=== PATIENT | female | born 1990 | race Caucasian/White ===

== ENCOUNTER 2018-03-20 21:13 | Emergency (ER) | payer SELFPAY ==
[~2018-03-20] VITALS: Ht 162.6 cm; Wt 68.5 kg
[~2018-03-20 21:13] MED LIST: ACET-1311 PO; IBUP-103 PO; PHEN95TA14 PO
[2018-03-20 21:15] VITALS: TEMP 36.8; Ht 162.6 cm; Wt 68.5 kg
[2018-03-20] MEDS ORDERED: CEFTRIAXONE SOD INJ 1 GM ADDVIAL IV STA (21:41)
[2018-03-20] MEDS ORDERED: KETOROLAC TROMETHAMINE 30 MG/ML VIAL IV STA (21:41)
[2018-03-20] MEDS ORDERED: NAPR1TAB9 PO (21:43)
[2018-03-20 22:08] LABS: BASO % 0.1 %; BASO ABS # 0.01 K/uL (0-0.2); EOS ABS # 0.13 K/uL (0-0.5); HEMATOCRIT 39.6 % (37-47); HEMOGLOBIN 13.7 g/dL (12.0-16.0); IG# 0.03 K/uL (0.00-0.02); LYMPH % 23.1 %; LYMPH ABS # 2.87 K/uL (1.2-3.4); MEAN CORPUSCULAR HEMOGLOBIN 30.1 pg (25-34); MEAN CORPUSCULAR HGB CONC 34.6 g/dl (32-36); MEAN PLATELET VOLUME 10.7 fL (7.4-10.4); MONO % 6.4 %; NEUT % 69.2 %; NEUT ABS # 8.59 K/uL (1.4-6.5); PLATELET COUNT 245 K/uL (130-400); RED CELL DISTRIBUTION WIDTH CV 13.2 % (11.5-14.5); RED CELL DISTRIBUTION WIDTH SD 42.1 fL (36.4-46.3); WHITE BLOOD COUNT 12.43 K/uL (4.8-10.8)
[2018-03-20 22:17] LABS: CALCIUM 8.5 mg/dl (8.5-10.1); CREATININE 0.65 mg/dl (0.60-1.20); POTASSIUM 3.5 mmol/L (3.5-5.1)
--- NOTE | 2018-03-20 22:58 | DIAGNOSTIC IMAGING REPORT ---
SOFT TISS HEAD/NECK-THYROID CLINICAL HISTORY: 27 years-old Female presenting with anterior neck infx, ? abscess. TECHNIQUE: Real-time grayscale Doppler ultrasound imaging of the neck was performed for a focused evaluation at the site of clinical concern. Color Doppler ultrasound imaging was also performed. COMPARISON: None. FINDINGS: At the site of clinical interest, a complex collection is noted within the midline neck. This measures 2.3 x 2.3 x 0.9 cm. Hyperemia noted regionally, including within the collection. Skin thickening and surrounding edema evident. IMPRESSION: 1. Phlegmonous changes in the midline. No discrete abscess. Electronically signed by: Fred Velazquez M.D. 03/20/2018 10:57 PM Dictated Date/Time: 03/20/2018 10:54 PM
[2018-03-20] MEDS ORDERED: CEPH500C2 PO (23:13)
[2018-03-20] MEDS ORDERED: CEPHALEXIN 500MG HOME PACK 1 EA BTL PO ONE (23:15)
[2018-03-20 23:37] VITALS: BP 129/89; PULSE 101; O2SAT 99
--- NOTE | 2018-03-21 04:21 | EMERGENCY ROOM VISIT NOTE ---
History First contact with patient: 21:25 Chief Complaint: WOUND INFECTION Stated Complaint: THROAT AREA/JAW INFECTION, POSSIBLE CYST History of Present Illness The patient is a 27 year old female who presents to the Emergency Room with complaints of anterior neck infection with possible abscess. Patient states she was squeezing at a pimple and cannot get any pus out of it. Patient states it got much larger over the past day and is concerned. No history of MRSA. No IV drug abuse. Patient denies chest pain, dyspnea, fever, chills, nausea, vomiting, neck stiffness or any other medical complaints. Tetanus is current. Review of Systems An 10 system review of systems was completed with positives and pertinent negatives listed in the HPI. Past Medical/Surgical History Medical Problems: (1) Abscess of left arm (2) Abscess packing removal (3) Abscess packing removal (4) Aseptic meningitis (5) Bartholin's cyst (6) Bartholin's cyst (7) Bartholin's gland abscess (8) Bartholin's gland abscess (9) Bartholin's gland abscess (10) Cellulitis of arm, left (11) Dental caries (12) Headache (13) Herpes simiae infection (14) Herpes simplex labialis (15) Herpetic lesions (16) Laceration (17) Leg hematoma (18) Leg hematoma (19) Meningitis (20) Odontalgia (21) Odontalgia (22) Sore throat (23) Tooth pain with chewing (24) Viral illness Social History Smoking Status: Current Every Day Smoker Alcohol Use: occasionally Drug Use: none Marital Status: in relationship Housing Status: lives with family Occupation Status: employed Current/Historical Medications Scheduled Cephalexin Monohydrate (Keflex), 500 MG PO QID Scheduled PRN Acetaminophen (Tylenol), 650 MG PO Q4H PRN for Pain Naproxen (Aleve), 220 MG PO UD PRN for Pain Physical Exam Vital Signs Date Time Temp Pulse Resp B/P (MAP) Pulse Ox O2 Delivery O2 Flow Rate FiO2 03/20/18 23:37 101 18 129/89 99 03/20/18 21:53 112 18 138/84 99 Room Air 03/20/18 21:15 36.8 122 18 149/96 99 Room Air Physical Exam VITALS: Vitals are noted on the nurse's note and reviewed by myself. Vital signs stable. GENERAL: Pleasant female anxious appearing, in no acute distress, nondiaphoretic , well-developed well-nourished. SKIN: Anterior neck just above the thyroid that is erythematous and raised 2 cm x 2 cm that is been picked at most likely from ingrown hair follicle without fluctuance or palpable abscess. No lymphangitis. The rest of the skin was without rashes, erythema, edema, or bruising. There is no tenting of the skin. Capillary reflex less than 2 seconds. HEAD: Normocephalic atraumatic. EARS: External auditory canals clear, tympanic membranes pearly keith without erythema or effusion bilaterally. EYES: Pupils equal round and reactive to light and accommodation. Conjunctivae without injection, sclerae without icterus. Extraocular movements intact. NOSE: Patent, turbinates without inflammation or discharge. MOUTH: Mucous membranes moist. Pharynx without erythema or exudate. Uvula midline. Airway patent. Tongue does not deviate. NECK: Supple without nuchal rigidity. No lymphadenopathy. No thyromegaly. Cervical spine is nontender. No JVD. HEART: Regular rate and rhythm without murmurs gallops or rubs. LUNGS: Clear to auscultation bilaterally without wheezes, rales or rhonchi. No retractions or accessory muscle use. ABDOMEN: Positive bowel sounds x 4. Normal tympanic percussion. Soft, nontender, without masses or organomegaly. Lane sign negative. No guarding or rebound tenderness. No CVA tenderness MUSCULOSKELETAL: No muscle atrophy, erythema, or edema noted. NEURO: Patient was alert and oriented to person place and time. Normal sensation to light and sharp touch. No focal neurological deficits. Medical Decision & Procedures Laboratory Results 03/20/18 21:50 Red Blood Count 4.55, Mean Corpuscular Volume 87.0, Mean Corpuscular Hemoglobin 30.1, Mean Corpuscular Hemoglobin Concent 34.6, Mean Platelet Volume 10.7, Neutrophils (%) (Auto) 69.2, Lymphocytes (%) (Auto) 23.1, Monocytes (%) (Auto) 6.4, Eosinophils (%) (Auto) 1.0, Basophils (%) (Auto) 0.1, Neutrophils # (Auto) 8.59, Lymphocytes # (Auto) 2.87, Monocytes # (Auto) 0.80, Eosinophils # (Auto) 0.13, Basophils # (Auto) 0.01 03/20/18 21:50 Test 03/20/18 21:50 White Blood Count 12.43 K/uL (4.8-10.8) Red Blood Count 4.55 M/uL (4.2-5.4) Hemoglobin 13.7 g/dL (12.0-16.0) Hematocrit 39.6 % (37-47) Mean Corpuscular Volume 87.0 fL (80-100) Mean Corpuscular Hemoglobin 30.1 pg (25-34) Mean Corpuscular Hemoglobin Concent 34.6 g/dl (32-36) Platelet Count 245 K/uL (130-400) Mean Platelet Volume 10.7 fL (7.4-10.4) Neutrophils (%) (Auto) 69.2 % Lymphocytes (%) (Auto) 23.1 % Monocytes (%) (Auto) 6.4 % Eosinophils (%) (Auto) 1.0 % Basophils (%) (Auto) 0.1 % Neutrophils # (Auto) 8.59 K/uL (1.4-6.5) Lymphocytes # (Auto) 2.87 K/uL (1.2-3.4) Monocytes # (Auto) 0.80 K/uL (0.11-0.59) Eosinophils # (Auto) 0.13 K/uL (0-0.5) Basophils # (Auto) 0.01 K/uL (0-0.2) RDW Standard Deviation 42.1 fL (36.4-46.3) RDW Coefficient of Variation 13.2 % (11.5-14.5) Immature Granulocyte % (Auto) 0.2 % Immature Granulocyte # (Auto) 0.03 K/uL (0.00-0.02) Anion Gap 5.0 mmol/L (3-11) Est Creatinine Clear Calc Drug Dose 123.6 ml/min Estimated GFR () 141.0 Estimated GFR (Non- 121.7 BUN/Creatinine Ratio 4.9 (10-20) Calcium Level 8.5 mg/dl (8.5-10.1) Thyroid Stimulating Hormone (TSH) 0.995 uIu/ml (0.300-4.500) Human Chorionic Gonadotropin, Qual NEG (NEG) Medications Administered Medications (Trade) Dose Ordered Sig/Luis Alberto Route Start Time Stop Time Status Last Admin Dose Admin Ceftriaxone Sodium (Rocephin Inj) 1 gm NOW STAT IV 03/20/18 21:41 03/20/18 21:44 DC 03/20/18 21:48 1 GM Ketorolac Tromethamine (Toradol Inj) 10 mg NOW STAT IV 03/20/18 21:41 03/20/18 21:44 DC 03/20/18 21:48 10 MG Cephalexin Monohydrate (Keflex 500MG Home Pack) 1 homepack NOW ONCE PO 03/20/18 23:15 03/20/18 23:16 DC 03/20/18 23:36 1 HOMEPACK ED Course Prior records reviewed and summarized as above. Triage Nursing notes reviewed. Additional history obtained from friend. The patient's history was concerning for swelling and redness of the skin. Differential diagnosis: Etiologies such as cellulitis, abscess, MRSA infection, necrotizing fasciitis , dermatitis, drug eruption, as well as others were entertained.. Physical examination: The physical examination was consistent with cellulitis ER treatment provided: Rocephin On reassessment the patient felt better. Diagnostics interpreted by me: The labs revealed mild leukocytosis Imaging studies: SOFT TISS HEAD/NECK-THYROID CLINICAL HISTORY: 27 years-old Female presenting with anterior neck infx, ? abscess. TECHNIQUE: Real-time grayscale Doppler ultrasound imaging of the neck was performed for a focused evaluation at the site of clinical concern. Color Doppler ultrasound imaging was also performed. COMPARISON: None. FINDINGS: At the site of clinical interest, a complex collection is noted within the midline neck. This measures 2.3 x 2.3 x 0.9 cm. Hyperemia noted regionally, including within the collection. Skin thickening and surrounding edema evident. IMPRESSION: 1. Phlegmonous changes in the midline. No discrete abscess. Electronically signed by: Fred Velazquez M.D. 03/20/2018 10:57 PM Dictated Date/Time: 03/20/2018 10:54 PM This appears to be isolated cellulitis. Patient had no palpable abscess. She is informed not to pick scratch or squeeze at the area. She is advised to take medications as directed and follow-up family care in a few days here in the ER sooner for fevers, spreading infection, neck stiffness, worsening signs or symptoms or as needed. Patient was neurovascularly and neurologically intact. She is well-appearing. She is tolerating fluids.By the evaluation outlined above emergent etiologies such as abscess, necrotizing fasciitis as well as others were deemed relatively unlikely. The pt informed about the findings as listed above. All questions were answered and pleased with the treatment. Return instructions were outlined and the patient was discharged in stable condition. Outpatient prescription management: Keflex Referral: The patient was referred back to primary care physician for follow-up in 2 to 3 days for a recheck of the current condition. Case reviewed with my attending The chart was completed utilizing [employer] Speech voice recognition software. Grammatical errors, random word insertions, pronoun errors, and incomplete sentences are an occassional consequence of this system due to software limitations, ambient noise, and hardware issues. Any formal questions or concerns about the content, text, or information contained within the body of this dictation should be directly addressed to the physician buyer assistant for clarification. Medical Decision As above Medication Reconcilliation Current Medication List: was personally reviewed by me Blood Pressure Screening Patient's blood pressure: Normal blood pressure Impression Primary Impression: Cellulitis, neck Departure Information Dispostion Home / Self-Care Condition GOOD Prescriptions Cephalexin Monohydrate (KEFLEX) 500 Mg Cap 500 MG PO QID for 9 Days, #36 CAP Prov: Hue Villareal ., DEBBIE 03/20/18 Forms WORK / SCHOOL INSTRUCTIONS, HOME CARE DOCUMENTATION FORM, IMPORTANT VISIT INFORMATION Patient Instructions Cellulitis - [facility], [facility] Additional Instructions Do not pick,scratch, or squeeze at the area of infection. Cephalexin(Keflex) 500mg: Take one pill four times daily for 10 days for your skin infection. All antibiotics can cause diarrhea. If this occurs and you feel worse or it does not resolve in 1-2 days follow up with your doctor or return to the Emergency Department as this could be signs of serious underlying problems. Any medication can cause an allergic reaction, stop the pills immediately and return to the ER for rash, hives, breathing difficulties, or swelling. Ibuprofen(Motrin, Advil) may be used for fever or pain. Use 600mg every six hours as needed. Take with food. Avoid using more than 2400mg in a 24 hour period. Do not use 2400mg per day for more than three consecutive days without physician direction. Prolonged inappropriate use can lead to stomach upset or ulcers. (AND/OR) Acetaminophen(Tylenol) may be used for fever or pain. Use 1000mg every six hours as needed. Avoid using more than 4000mg in a 24 hour period. Rest and drink plenty of fluids. Continue current medications. Return to the ER for severe pain, persistent fevers, spreading redness, or any worsening of your condition. Follow up with your primary physician within 2-3 days for a recheck of the current condition.
== END 2018-03-20 23:39 | disposition home or self-care (01) ==
LOC: C.EDB 21:14
DX: L03.221 Cellulitis of neck (principal); F17.200 Nicotine dependence, unspecified, uncomplicated

== ENCOUNTER 2019-11-29 08:33 | Inpatient (IN) ==
[2019-11-29] MEDS ORDERED: OXYTOCIN 30 UNITS/500 ML BAG IV PRN ×3 (11:13→12:00)
[2019-11-29] MEDS ORDERED: OXYTOCIN 30 UNITS/500 ML BAG IV SCH (11:15)
--- NOTE | 2019-11-29 11:18 | Obstetrical Progress Note ---
Date of Service November 29, 2019 Subjective Met pt and partner discussed plan induction fro IUGR and drug abuse\ Bernardo bulb placed with 30 cc saline FHR; CAT1 ctx minimal VE 1-2/50/-3 Results & Data Vital Signs (Past 12 Hours) Vital Signs Temp Pulse Resp BP 11/29/19 09:21 36.7 C 20 11/29/19 09:20 76 123/74 11/29/19 09:05 36.7 C 20
[2019-11-29 11:31] LABS: Hematocrit (blood only) 39.6 % (37-47); Hemoglobin 13.4 g/dL (12.0-16.0); Mean Corpuscular Hemoglobin 30.4 pg (25-34); Mean Corpuscular Volume 89.8 fL (80-100); Mean Platelet Volume 11.6 fL (7.4-10.4); Platelet Count 220 K/uL (130-400); RDW Coefficient of Variation 13.9 % (11.5-14.5); RDW Standard Deviation 45.5 fL (36.4-46.3); Red Blood Count 4.41 M/uL (4.2-5.4); White Blood Count 14.56 K/uL (4.8-10.8)
[2019-11-29 11:39] LABS: Mean Corpuscular Hgb Conc 33.8 g/dL (32-36)
[2019-11-29] MEDS: LACTATED RINGER'S 1,000 ML IV PRN ×3 (11:50→23:26)
--- NOTE | 2019-11-29 11:56 | Obstetrical Progress Note ---
Date of Service November 29, 2019 Subjective Pt doing well mcdonald bulb inserted cervix , fell out FHR; Cat1 Ctx. minimal VE/thick/post will start Pitocin augmentation Results & Data Vital Signs (Past 12 Hours) Vital Signs Temp Pulse Resp BP 11/29/19 09:21 36.7 C 20 11/29/19 09:20 76 123/74 11/29/19 09:05 36.7 C 20
[2019-11-29] MEDS: NICOTINE 14 MG/24 HR PATCH TD SCH (16:14)
[2019-11-29] MEDS ORDERED: Nursing to Pharmacy Communication SCH (18:00)
[2019-11-29] MEDS: buprenorphine HCL 8 MG SUBL SL SCH (18:03)
[2019-11-29] MEDS ORDERED: fentaNYL citrate 100 MCG/2 ML VIAL ONE (23:58)
[2019-11-29] MEDS ORDERED: ePHEDrine sulfate 50 MG/ML AMP ONE (23:58)
[2019-11-29] MEDS ORDERED: BUPIVACAINE 0.25% 30 ML VIAL ONE (23:59)
[2019-11-29] MEDS ORDERED: fentaNYL 2MCG/ML ROPIV 1.25MG/ML 100 ML BAG EPI ONE (23:59)
[2019-11-30] MEDS ORDERED: NALOXONE HCL 0.4 MG/1 ML VIAL/CARP IV PRN (00:58)
[2019-11-30] MEDS ORDERED: NALBUPHINE HCL INJ 10 MG/ML AMP IV PRN (00:58)
[2019-11-30] MEDS ORDERED: ePHEDrine sulfate 50 MG/ML AMP IV PRN (00:58)
[2019-11-30] MEDS ORDERED: DiphenhydrAMINE HCL 50 MG/ML VIAL IV PRN (00:58)
[2019-11-30] MEDS ORDERED: NALOXONE HCL 1 MG in SODIUM CHLORIDE 0.9% 1000ML 1,000 ML IV PRN (00:58)
[2019-11-30] MEDS ORDERED: fentaNYL 2MCG/ML ROPIV 1.25MG/ML 100 ML BAG EPI PRN (00:58)
[2019-11-30] MEDS ORDERED: ONDANSETRON INJ 2 MG/ML 2 ML VIAL IV PRN (00:58)
--- NOTE | 2019-11-30 01:00 | Anesthesiology Consultation ---
Date of Service November 30, 2019 Assessment & Plan Chart Review Chart Review: Patient NOT seen in Pre Admission Testing and Acceptable Risk for Labor Epidural Consults Requested none ASA ASA2 Proposed Anesthesia Anesthesia Type: Labor Epidural and CSE Risk / Benefits Reviewed With: PT / POA / Parent / Guardian, Accepts Plan and Informed Consent Obtained History Height/Weight Height: 5 ft 4 in Weight: 81.193 kg Allergies Allergy/AdvReac Type Severity Reaction Status Date / Time coconut Allergy Hives Verified 11/29/19 09:03 iodine in fish Allergy Hives Uncoded 11/29/19 09:56 Medications Home Medications Medication Instructions Recorded Confirmed Last Taken buprenorphine HCl 20 mg SUBLINGUAL DAILY 11/29/19 11/29/19 11/29/19 07:30 8 mg vit-iron fum-folic ac 1 tab PO DAILY 11/29/19 11/29/19 11/28/19 14:00 [ Vitamin] Active Medications Generic Name Dose Route Start Last Admin Trade Name Freq PRN Reason Stop Dose Admin Buprenorphine HCl 8 mg 11/29/19 18:00 11/29/19 18:03 Subutex SL 12/29/19 17:59 8 mg DAILY@1800 ALVAREZ Administration Lactated Ringer's 1,000 mls @ 125 mls/hr 11/29/19 11:13 11/29/19 23:26 Lr IV 12/01/19 11:12 125 mls/hr .Q8H PRN Administration L&D Protocol Protocol Oxytocin 30 units in 500 mls @ 10 mls/hr 11/29/19 11:15 11/29/19 22:30 Pitocin IV 12/29/19 11:14 0.6 units/hr .Q24H ALVAREZ 10 mls/hr Titration Protocol 0.6 UNITS/HR Nicotine 14 mg 11/29/19 15:20 11/29/19 16:14 Nicoderm Cq TD 12/29/19 15:19 14 mg QAM ALVAREZ Administration NPO Date Last Intake of Fluids: 11/30/19 Time Last Intake of Fluids: 00:20 Date Last Intake of Solids: 11/29/19 Time Last Intake of Solids: 09:00 Past Medical History Medical History Cellulitis of labia (Acute) Cellulitis, neck (Acute) Smoker Spontaneous 2008 and 2009 Exercise / Class Metabolic Activity II 4-5 Yardwork/Stairs/Walk up hill Past Anesthesia History No Hx of Anesthesia Complications and No Family Hx of Anesthesia Complications History of PONV No Hx of PONV and No Hx of Motion Sickness Social History Smoking Status: Current every day smoker Smoking cigarettes per day: 10 Do You Dip or Chew Tobacco: No Hx Alcohol Use: No substance use type: painkillers Last Used Substance Other:: 01/04 Review of Systems no chest pain or sob Physical Exam Vital Signs Last Vital Signs Temp 36.8 C 11/29/19 23:00 Pulse 89 11/30/19 00:57 Resp 18 11/30/19 00:02 BP 126/78 11/30/19 00:02 Pulse Ox 100 11/30/19 00:57 ENMT Mouth: no TMJ abnormality Thyromental Distance: > or= 3.5 Finger Breadths Mallampati Class: II Neck normal visual inspection Respiratory normal respiratory effort Auscultation: lungs clear to auscultation bilaterally Cardiovascular Rate/Rhythm: regular rate and regular rhythm Musculoskeletal Spine: normal cervical ROM Neurologic moves all extremities Psychiatric Orientation: alert and oriented x 3 Testing Laboratory Results 11/29/19 11:19
--- NOTE | 2019-11-30 01:45 | Obstetrical Progress Note ---
Date of Service November 30, 2019 Subjective pt doing well epidural analgesia on board FHR ; CAT1 Ctx 2-4mns Pitocin VE; 4/80/-2 AROM- clear Results & Data Vital Signs (Past 12 Hours) Vital Signs Temp Pulse Resp BP Pulse Ox 11/30/19 01:37 70 98 11/30/19 01:35 67 123/66 11/30/19 01:32 69 98 11/30/19 01:27 76 100 11/30/19 01:25 70 120/60 11/30/19 01:22 80 126/75 100 11/30/19 01:21 78 123/66 11/30/19 01:18 71 137/71 11/30/19 01:17 74 134/58 L 99 11/30/19 01:12 80 164/88 H 100 11/30/19 01:09 81 88 L 11/30/19 01:07 79 100 11/30/19 01:02 36.6 C 72 130/89 100 11/30/19 00:57 89 100 11/30/19 00:50 85 100 11/30/19 00:45 75 97 11/30/19 00:40 76 100 11/30/19 00:35 75 98 11/30/19 00:30 66 99 11/30/19 00:25 72 100 11/30/19 00:20 67 98 11/30/19 00:15 64 100 11/30/19 00:10 69 98 11/30/19 00:05 65 97 11/30/19 00:02 65 18 126/78 11/30/19 00:00 64 98 11/29/19 23:57 63 134/74 11/29/19 23:55 66 99 11/29/19 23:03 76 115/72 11/29/19 23:00 36.8 C 18 11/29/19 22:02 76 18 130/76 11/29/19 21:00 36.8 C 71 18 137/73 11/29/19 20:14 71 18 120/77 11/29/19 19:23 36.7 C 18 11/29/19 19:16 36.7 C 64 18 126/71 11/29/19 17:09 68 130/57 L 11/29/19 15:55 36.8 C 20 11/29/19 15:54 64 109/56 L 11/29/19 14:43 64 116/67
[2019-11-30] MEDS: LACTATED RINGER'S 1,000 ML IV PRN (04:37)
[2019-11-30] MEDS: buprenorphine HCL 8 MG SUBL SL SCH ×2 (07:26→17:50)
[2019-11-30] MEDS ORDERED: buprenorphine HCL 2 MG SUBL SL SCH ×2 (07:30→09:00)
[2019-11-30] MEDS ORDERED: OXYTOCIN 30 UNITS/500 ML BAG IV PRN (08:13)
[2019-11-30] MEDS ORDERED: BENZOCAINE 20% AER SPR 82.5 GM CAN EXT PRN (08:13)
[2019-11-30] MEDS ORDERED: SUPERCREAM 0.870% 15 GM JAR EXT PRN (08:13)
[2019-11-30] MEDS ORDERED: bisacodyL 10 MG SUPP PR PRN (08:13)
[2019-11-30] MEDS ORDERED: DIPHTHERIA/TETANUS/PERTUSSIS 0.5 ML SYR/VIAL IM ONE (08:13)
[2019-11-30] MEDS ORDERED: HYDROCORTISONE ACETATE 25 MG SUPP PR PRN (08:13)
[2019-11-30] MEDS ORDERED: ACETAMINOPHEN 325 MG TAB PO PRN (08:13)
[2019-11-30] MEDS ORDERED: NON-FORMULARY MEDICATION (Prenatal Vit-Iron Fum-Folic Ac [Prenatal Vitamin] 1 TAB) PO SCH (09:00)
[2019-11-30] MEDS ORDERED: NICOTINE 14 MG/24 HR PATCH TD SCH (09:00)
--- NOTE | 2019-11-30 09:04 | Delivery Summary ---
DATE OF OPERATION: 11/30/2019 She was diagnosed with intrauterine growth retardation, brought in for induction, given a Bernardo bulb and then went to Pitocin. She became fully dilated with 3 pushes, pushed out a live via direct occiput anterior position over an intact perineum. was suctioned through the mouth and the nose. Shoulders delivered without difficulty. Cord was clamped, cut by the patient's mother. Cord blood was taken. With IV Pitocin running, the placenta was removed intact. Inspection revealed a left-sided sulcus tear and a first-degree laceration. The apex of the sulcus tear was identified and then a suture of Vicryl placed above the apex and then the sulcus was approximated with a running Vicryl. Then, I repaired the perineal tear by approximating the bulbocavernosus muscles with a deep suture approximating the perineal body with a deep suture and then approximating the skin edges with a running subcuticular suture. Following this, vag exam revealed no sponges in the vagina. There were no hematoma formation. Rectal examination revealed no stitches to the rectal mucosa. Estimated blood loss was 100 mL. My own estimation of the Apgars were 9 and 10 respectively. The patient tolerated the procedure well. Pain under epidural anesthesia. I attest to the content of the Intraoperative Record and any orders documented therein. Any exception s are noted below.
[2019-11-30] MEDS: IBUPROFEN 600 MG TAB PO PRN ×2 (10:39→16:43)
--- NOTE | 2019-11-30 10:39 | Anesthesia Procedure Note ---
Date of Service November 30, 2019 Anesthesia Post Epidural Note Vital Signs Vital Signs: Temp Pulse Resp BP Pulse Ox 37.2 C 82 16 135/75 100 11/30/19 07:01 11/30/19 10:16 11/30/19 07:01 11/30/19 10:16 11/30/19 08:18 Notes Mental Status: alert / awake / arousable and participated in evaluation Nausea / Vomiting: adequately controlled Pain: adequately controlled Airway Patency, RR, SpO2: stable & adequate BP & HR: stable & adequate Hydration State: stable & adequate Neuraxial Anesthesia: was administered and sensory block is resolving Anesthetic Complications: no major complications apparent and Pt Satisfied with anesthetic care Epidural: Removed without complications and With tip intact Notes: Epidural site clean, dry and intact. No signs of edema, erythema or bruising at insertion site. Pt instructed to request anesthesia if she has residual lower extremity numbness or if she develops lower extremity pain or weakness, back pain or headache.
[2019-11-30] MEDS: NICOTINE 14 MG/24 HR PATCH TD SCH (12:06)
[2019-11-30] MEDS: DOCUSATE SODIUM 100 MG CAP PO SCH (20:20)
[2019-12-01] MEDS: IBUPROFEN 600 MG TAB PO PRN ×4 (00:23→23:38)
[2019-12-01 06:34] LABS: Hematocrit (blood only) 33.4 % (37-47); Mean Corpuscular Hemoglobin 30.1 pg (25-34); Mean Corpuscular Hgb Conc 32.9 g/dL (32-36); Mean Corpuscular Volume 91.5 fL (80-100); Mean Platelet Volume 11.6 fL (7.4-10.4); Platelet Count 189 K/uL (130-400); RDW Standard Deviation 46.8 fL (36.4-46.3); Red Blood Count 3.65 M/uL (4.2-5.4); White Blood Count 14.78 K/uL (4.8-10.8)
[2019-12-01] MEDS ORDERED: FERROUS SULFATE 325 MG TAB PO SCH (08:00)
[2019-12-01] MEDS: PRENATAL VITAMIN 1 TAB PO SCH (08:02)
[2019-12-01] MEDS: NICOTINE 14 MG/24 HR PATCH TD SCH (08:02)
[2019-12-01] MEDS: DOCUSATE SODIUM 100 MG CAP PO SCH ×2 (08:02→20:56)
[2019-12-01] MEDS: buprenorphine HCL 8 MG SUBL SL SCH ×2 (08:03→17:59)
--- NOTE | 2019-12-01 08:11 | Obstetrical Progress Note ---
Date of Service December 01, 2019 Subjective Patient is seen and examined. She feels well, no complaints. Ambulating without dizziness Voiding without difficulty Tolerating regular diet with out N&V Bleeding is minimal No fever/ chills/ CP/ SOB/ N&V/ Leg pain Breast feeding without problems Vital Signs Temp Pulse Pulse Pulse Resp BP BP 12/01/19 04:15 36.8 C 68 14 119/75 12/01/19 00:00 36.6 C 71 16 122/65 11/30/19 19:30 36.7 C 81 18 129/70 11/30/19 14:05 36.9 C 73 18 142/87 H 11/30/19 11:05 36.7 C 79 16 128/75 11/30/19 10:16 82 135/75 11/30/19 10:01 84 129/71 11/30/19 09:46 94 H 127/80 11/30/19 09:31 95 H 140/83 11/30/19 09:16 81 136/71 11/30/19 09:01 73 122/73 11/30/19 08:46 73 131/78 11/30/19 08:31 75 126/76 11/30/19 08:18 101 H 11/30/19 08:16 94 H 128/80 11/30/19 08:13 88 Pulse Ox 12/01/19 04:15 98 12/01/19 00:00 100 11/30/19 19:30 100 11/30/19 14:05 98 11/30/19 11:05 98 11/30/19 10:16 11/30/19 10:01 11/30/19 09:46 11/30/19 09:31 11/30/19 09:16 11/30/19 09:01 11/30/19 08:46 11/30/19 08:31 11/30/19 08:18 100 11/30/19 08:16 11/30/19 08:13 100 Lab Results 11/29/19 12/01/19 Range/Units 11:19 06:17 WBC 14.56 H 14.78 H (4.8-10.8) K/uL RBC 4.41 3.65 L (4.2-5.4) M/uL Hgb 13.4 11.0 L (12.0-16.0) g/dL Hct 39.6 33.4 L (37-47) % MCV 89.8 91.5 (80-100) fL MCH 30.4 30.1 (25-34) pg MCHC 33.8 32.9 (32-36) g/dL RDW Std Deviation 45.5 46.8 H (36.4-46.3) fL RDW Coeff of Alex 13.9 14.0 (11.5-14.5) % Plt Count 220 189 (130-400) K/uL MPV 11.6 H 11.6 H (7.4-10.4) fL PE: General: Alert, orientedx3, NAD Abd: soft, NT, fundus firm, below Umbilicus Perineum intact, Lochia rubra minimal Ext; NT, no edema AP: 29 yo s/p , ppd# 1 VSS Afebrile doing well Continue routine care All questions were answered D/C home tomorrow Results & Data Vital Signs (Past 12 Hours) Vital Signs Temp Pulse Resp BP Pulse Ox 12/01/19 04:15 36.8 C 68 14 119/75 98 12/01/19 00:00 36.6 C 71 16 122/65 100
[2019-12-01] MEDS ORDERED: bisacodyL 5 MG TABEC PO SCH (20:00)
[2019-12-02 06:27] LABS: Hematocrit (blood only) 35.3 % (37-47); Hemoglobin 11.6 g/dL (12.0-16.0)
[2019-12-02] MEDS: DOCUSATE SODIUM 100 MG CAP PO SCH (08:53)
[2019-12-02] MEDS: PRENATAL VITAMIN 1 TAB PO SCH (08:53)
[2019-12-02] MEDS: buprenorphine HCL 8 MG SUBL SL SCH (08:53)
--- NOTE | 2019-12-02 10:10 | Obstetrical Progress Note ---
Date of Service December 02, 2019 Assessment & Plan (1) normal course: PPD #2 pt doing well no compalints Subjective Ambulation: ambulating normally Voiding: no voiding problems Passing Gas:: Yes Diet Tolerance:: regular diet Lochia:: Small Feeding Type:: breast feeding Review of Systems All systems reviewed & are unremarkable except as noted in HPI & below Physical Exam Constitutional WD/WN, vitals as above well developed and well nourished Eyes PERRL, conjunctivae normal, anicteric sclerae Neck trachea midline, no thyromegaly Respiratory normal respiratory effort, lungs clear to auscultation Auscultation: no crackles, no rales and no wheezes Cardiovascular RRR, no murmur, no edema Gastrointestinal (Abdomen) normal bowel sounds, soft, nontender, no hepatosplenomegaly Uterus is below umbilicus Musculoskeletal no cyanosis or clubbing, extremities motor strength 5/5 Skin no rashes, warm and dry Neurologic patellar DTR's 2+ bilat, sensation intact Psychiatric A+Ox3, euthymic affect Genitourinary normal external appearance Results & Data Vital Signs (Past 12 Hours) Vital Signs Temp Pulse Resp BP Pulse Ox 12/01/19 23:38 36.7 C 85 18 128/82 99
[2019-12-02] MEDS: IBUPROFEN 600 MG TAB PO PRN (14:43)
== END 2019-12-02 14:35 | disposition home or self-care (01) | DRG 807 ==
LOC: 4S1 08:51 → 4S2 11-30 10:50

== ENCOUNTER 2023-05-05 13:46 | Inpatient (IN) ==
[2023-05-05] MEDS ORDERED: LIDOCAINE 1% LOCAL 20 ML VIAL INFIL PRN (14:20)
[2023-05-05] MEDS ORDERED: OXYTOCIN 30 UNITS/500 ML BAG IV PRN ×2 (14:20→20:22)
--- NOTE | 2023-05-05 15:02 | History & Physical Report ---
Date of Service May 05, 2023 Assessment & Plan (1) IUGR (intrauterine growth restriction) affecting care of mother: Plan: induction of labor Admission and Anticipated Discharge Date Admission Date: May 05, 2023 History of Present Illness Chief Complaint: induction of labor Primary Care Provider: Coreen Monae MD 33 F [id number] at 39.4 weeks admitted for IOL for IUGR. Patient on Subutex three times daily 8/4/8 mg. She has been non-compliant with her prenantal care the entire . Allergies Allergy/AdvReac Type Severity Reaction Status Date / Time coconut Allergy Severe Anaphylaxis Verified 05/05/23 14:19 fish derived Allergy Intermediate Hives Verified 05/05/23 14:19 iodine in fish Allergy Intermediate Hives Uncoded 05/05/23 14:19 Home Medications Medication Instructions Recorded Confirmed Type buprenorphine HCl 8 mg sublingual 8 mg sublingual TID 11/29/19 05/05/23 History tablet Patient History Medical History Aseptic meningitis (03/22/13) Bartholin cyst Removal Cellulitis of labia Treatment with antibiotics. Cellulitis, neck Drug use [id number] Snorting pain pills. Has been on Subutex since May 2019. Meningitis (09/10/11) Smoker Smokes 1 pack per day Spontaneous 2008 and 2009 Surgical History [place] teeth extracted Family History Grandmother (Paternal) Diabetes Grandfather (Paternal) Diabetes Grandfather (Maternal) Hypertension Social History Smoking Status: Current every day smoker Cigarettes Per Day: 20; Do You Dip or Chew Tobacco: No; Hx Alcohol Use: No Hx Substance Use: No Preferred Language: Romansh Communication Ability: Effective Photographic Editor Required: No Beliefs That Will Affect Care: None marital status: marital status details: Nash Augustine Current Living Situation: Spouse and Other Current Living Situation Comment: Patient lives with Familia, son. Nash is in a detention house in [place] current occupational status: employed current occupation: Homemaker - Used to work at [employer] Other Information That Helps Us Care for You: No Feels Safe at Home: Yes Diet: regular Assistive Devices: None OB History x1 Review of Systems All systems reviewed & are unremarkable except as noted in HPI & below Physical Exam Constitutional: WD/WN, vitals as above Eyes: PERRL, conjunctivae normal, anicteric sclerae Respiratory: normal respiratory effort, lungs clear to auscultation Cardiovascular: RRR, no murmur, no edema Gastrointestinal (Abdomen): Inspection/Auscultation: abdomen normal to inspection Musculoskeletal: Extremities: extremities normal to inspection Skin: no rashes, warm and dry Neurologic: patellar DTR's 2+ bilat, sensation intact Psychiatric: A+Ox3, euthymic affect Genitourinary: no vaginal lesions, no adnexal mass OB Exam Abdomen: + fundal height and + vertex Manual OB Exam: + cervical dilation 1 cm, + cervical effacement 50% and + station (soft/posterior) -2 OB Exam Monitor Tracing: + external FHT monitor used, + external uterine monitor used, + category I and + normal FHT variability Results & Data Vital Signs (Past 12 Hours) Vital Signs Temp Pulse Resp BP 05/05/23 14:22 36.8 C 103 H 20 160/100 H 05/05/23 14:32 103 H 178/97 H 05/05/23 14:17 103 H 160/100 H 05/05/23 14:01 96 H 154/100 H Code Status & VTE Plan VTE Prophylaxis Plan VTE Prophylaxis will be ordered: No Monitoring External Monitor Cat 1
[2023-05-05 15:03] LABS: Appearance Urine Cloudy (Clear); Bacteria Urine Automated 2+ (Negative); Bilirubin Urine Negative (Negative); Blood Urine 1+ (Negative); Color Urine Dark Yellow; Epithelial Cell Urine Auto >30 /lpf (0-5); Glucose Urine UA Negative (Negative); Ketones Urine Negative (Negative); Leukocyte Esterase Urine Trace (Negative); Nitrite Urine Negative (Negative); Protein Urine 2+ (Negative); Specific Gravity Urine 1.018 (1.000-1.030); Urobilinogen Urine Negative (Negative); pH Urine 6.5 (4.5-7.5)
[2023-05-05] MEDS ORDERED: PENICILLIN G POTASSIUM 6 MU in DEXTROSE 5% 250 ML IV STA (15:11)
[2023-05-05 15:20] LABS: Albumin Level 2.9 gm/dl (3.4-5.0); Bilirubin Direct 0.2 mg/dl (0-0.2); Bilirubin,Total 0.5 mg/dl (0.2-1.0); Calcium 8.1 mg/dl (8.6-10.3); Potassium 3.7 mmol/L (3.5-5.1)
[2023-05-05 15:26] LABS: Albumin Globulin Ratio 1.1 (0.9-2); BUN Creatinine Ratio 11.1 (10-20); Est GFR (African American) 136.6 ml/min; Est GFR (Non-African American) 117.9 ml/min; Globulin 2.7 gm/dl (2.5-4.0); Total Protein 5.6 gm/dl (6.0-8.3)
[2023-05-05 15:46] LABS: Amphetamines+Metham, Urine Pos (Neg); Barbiturates, Urine Neg (Neg); Benzodiazepine, Urine Neg (Neg); Cocaine, Urine Neg (Neg); MDMA (Ecstacy), Urine Neg (Neg); Methadone, Urine Neg (Neg); Opiate, Urine Neg (Neg); Phencyclidine, Urine Neg (Neg)
[2023-05-05 15:49] LABS: Rubella IgG Ab Immune (Immune)
[2023-05-05 15:56] LABS: Total Protein Urine Random 91.9 mg/dl (0-11.9)
[2023-05-05] MEDS: miSOPROStoL 50 MCG TAB PO SCH ×3 (16:00→20:53)
[2023-05-05 16:01] LABS: Protein Creatinine Ratio Urine 0.7 (0-0.2)
[2023-05-05 16:16] LABS: Hematocrit (blood only) 40.4 % (37.0-47.0); Hemoglobin 13.5 g/dl (12.0-16.0); Mean Corpuscular Hemoglobin 29.1 pg (25.0-34.0); Mean Corpuscular Hgb Conc 33.4 g/dL (32.0-36.0); Mean Corpuscular Volume 87.1 fL (80.0-100.0); Mean Platelet Volume 13.2 fL (9.4-12.4); Platelet Count 83 K/uL (130-400); Platelet Estimate Decreased (Normal); RDW Coefficient of Variation 13.3 % (11.5-14.5); RDW Standard Deviation 41.4 fL (36.4-46.3); Red Blood Count 4.64 M/uL (4.20-5.40)
[2023-05-05] MEDS ORDERED: MAG SULFATE 6GM BOLUS FROM BAG IV ONE (16:41)
[2023-05-05] MEDS: LACTATED RINGER'S 1,000 ML IV PRN (16:57)
[2023-05-05] MEDS: MAGNESIUM SULFATE / WTR 40 GM/1,000 ML BAG IV SCH (17:07)
[2023-05-05] MEDS ORDERED: LABETALOL HCL IV 5 MG/ML 20ML IV STA ×2 (17:56→20:22)
[2023-05-05] MEDS ORDERED: LABETALOL HCL IV 5 MG/ML 20ML IV ONE (17:59)
--- NOTE | 2023-05-05 19:24 | Labor Progress Brief Note ---
Date of Service May 05, 2023 Assessment & Plan Admission and Anticipated Discharge Date Admission Date: May 05, 2023 Physical Exam Genitourinary: Manual OB Exam: + cervical dilation 3 cm, + cervical effacement 50% and + station -2 OB Exam Monitor Tracing: + external FHT monitor used, + external uterine monitor used, + category I and + normal FHT variability epidural pending Results & Data Vital Signs (Past 12 Hours) Vital Signs Temp Pulse Resp BP Pulse Ox 05/05/23 17:10 20 05/05/23 18:08 20 05/05/23 14:22 36.8 C 103 H 20 160/100 H 05/05/23 19:21 94 H 99 05/05/23 19:16 96 H 99 05/05/23 19:12 83 170/104 H 05/05/23 19:11 95 H 99 05/05/23 19:06 91 H 97 05/05/23 19:01 89 96 05/05/23 18:56 86 97 05/05/23 18:51 86 96 05/05/23 18:46 85 96 05/05/23 18:41 86 97 05/05/23 18:39 86 152/101 H 05/05/23 18:36 85 96 05/05/23 18:35 83 145/98 H 05/05/23 18:31 85 97 05/05/23 18:29 88 146/97 H 05/05/23 18:26 91 H 97 05/05/23 18:24 84 163/103 H 05/05/23 18:21 88 162/100 H 98 05/05/23 18:16 90 98 05/05/23 18:14 90 141/86 H 05/05/23 18:11 92 H 97 05/05/23 18:09 88 151/91 H 05/05/23 18:06 92 H 98 05/05/23 18:04 94 H 171/101 H 05/05/23 18:01 92 H 98 05/05/23 17:56 88 97 05/05/23 17:55 86 175/101 H 05/05/23 17:51 90 97 05/05/23 17:46 95 H 97 05/05/23 17:41 98 H 166/101 H 97 05/05/23 17:36 96 H 99 05/05/23 17:31 100 H 99 05/05/23 17:26 96 H 98 05/05/23 17:25 91 H 144/89 H 05/05/23 17:21 93 H 98 05/05/23 17:16 96 H 97 05/05/23 17:11 93 H 98 05/05/23 17:04 37.3 C 95 H 20 155/106 H 05/05/23 16:54 88 180/106 H 05/05/23 16:07 84 146/86 H 05/05/23 16:03 86 170/91 H 05/05/23 15:47 88 137/88 05/05/23 15:33 85 158/87 H 05/05/23 15:18 89 20 147/86 H 05/05/23 15:02 101 H 156/81 H 05/05/23 14:32 103 H 178/97 H 05/05/23 14:17 103 H 160/100 H 05/05/23 14:01 96 H 154/100 H
[2023-05-05] MEDS ORDERED: SODIUM CHLORIDE 0.9% 250 ML IV PRN (19:37)
[2023-05-05 20:18] LABS: Platelet Count 77 K/uL (130-400)
--- NOTE | 2023-05-05 20:50 | Labor Progress Brief Note ---
Date of Service May 05, 2023 Assessment & Plan Admission and Anticipated Discharge Date Admission Date: May 05, 2023 Physical Exam Genitourinary: Manual OB Exam: + cervical dilation 3 cm and 4 cm, + cervical effacement 60% and + station -2 OB Exam Monitor Tracing: + external FHT monitor used, + external uterine monitor used, + category I and + normal FHT variability AROM with amni-hook clear fluid Results & Data Vital Signs (Past 12 Hours) Vital Signs Temp Pulse Resp BP Pulse Ox 05/05/23 19:01 36.8 C 18 05/05/23 17:10 20 05/05/23 18:08 20 05/05/23 14:22 36.8 C 103 H 20 160/100 H 05/05/23 20:47 98 H 157/103 H 05/05/23 20:46 97 H 98 05/05/23 20:43 100 H 137/93 05/05/23 20:41 108 H 96 05/05/23 20:36 100 H 99 05/05/23 20:31 100 H 98 05/05/23 20:26 93 H 97 05/05/23 20:21 92 H 96 05/05/23 20:16 93 H 98 05/05/23 20:13 101 H 160/104 H 05/05/23 20:11 101 H 99 05/05/23 20:06 102 H 98 05/05/23 20:01 94 H 99 05/05/23 19:56 101 H 97 05/05/23 19:51 92 H 98 05/05/23 19:46 99 H 100 05/05/23 19:42 85 163/95 H 05/05/23 19:41 90 99 05/05/23 19:36 86 99 05/05/23 19:31 99 H 99 05/05/23 19:26 95 H 100 05/05/23 19:21 94 H 99 05/05/23 19:16 96 H 99 05/05/23 19:12 83 170/104 H 05/05/23 19:11 95 H 99 05/05/23 19:06 91 H 97 05/05/23 19:01 89 96 05/05/23 18:56 86 97 05/05/23 18:51 86 96 05/05/23 18:46 85 96 05/05/23 18:41 86 97 05/05/23 18:39 86 152/101 H 05/05/23 18:36 85 96 05/05/23 18:35 83 145/98 H 05/05/23 18:31 85 97 05/05/23 18:29 88 146/97 H 05/05/23 18:26 91 H 97 05/05/23 18:24 84 163/103 H 05/05/23 18:21 88 162/100 H 98 05/05/23 18:16 90 98 05/05/23 18:14 90 141/86 H 05/05/23 18:11 92 H 97 05/05/23 18:09 88 151/91 H 05/05/23 18:06 92 H 98 05/05/23 18:04 94 H 171/101 H 05/05/23 18:01 92 H 98 05/05/23 17:56 88 97 05/05/23 17:55 86 175/101 H 05/05/23 17:51 90 97 05/05/23 17:46 95 H 97 05/05/23 17:41 98 H 166/101 H 97 05/05/23 17:36 96 H 99 05/05/23 17:31 100 H 99 05/05/23 17:26 96 H 98 05/05/23 17:25 91 H 144/89 H 05/05/23 17:21 93 H 98 05/05/23 17:16 96 H 97 05/05/23 17:11 93 H 98 05/05/23 17:04 37.3 C 95 H 20 155/106 H 05/05/23 16:54 88 180/106 H 05/05/23 16:07 84 146/86 H 05/05/23 16:03 86 170/91 H 05/05/23 15:47 88 137/88 05/05/23 15:33 85 158/87 H 05/05/23 15:18 89 20 147/86 H 05/05/23 15:02 101 H 156/81 H 05/05/23 14:32 103 H 178/97 H 05/05/23 14:17 103 H 160/100 H 05/05/23 14:01 96 H 154/100 H
[2023-05-05] MEDS ORDERED: BUTORPHANOL TARTRATE 1 MG/ML VIAL IV PRN (20:51)
[2023-05-05] MEDS ORDERED: buprenorphine HCL 8 MG SUBL SL SCH (21:00)
[2023-05-05] MEDS: NICOTINE 14 MG/24 HR PATCH TD SCH (21:02)
[2023-05-05] MEDS: PENICILLIN G POTASSIUM 3 MU in DEXTROSE 5% 100 ML IV PRN (22:53)
[2023-05-06] MEDS: LACTATED RINGER'S 1,000 ML IV PRN ×2 (00:40→15:21)
[2023-05-06] MEDS ORDERED: LABETALOL HCL IV 5 MG/ML 20ML IV STA (00:51)
[2023-05-06] MEDS: PENICILLIN G POTASSIUM 3 MU in DEXTROSE 5% 100 ML IV PRN (02:56)
--- NOTE | 2023-05-06 04:18 | Delivery Summary ---
Vaginal Delivery Summary Date of Service May 06, 2023 Vaginal Delivery Summary Delivery Note live female ISHMAEL over intact perineum with delayed cord clamping and Apgars 8/9 birthweight pending. Cord blood obtained. Placenta undelivered for over 30 minutes. Attempt at manual removal after patient gave verbal permission was unsuccessful. Patient was then to be taken to the OR for manual removal and possible curettage. EBL 300 ml. Final sponge and instrument count are correct. Mom and baby stable.
--- NOTE | 2023-05-06 04:19 | Anesthesiology Consultation ---
Date of Service May 06, 2023 Assessment & Plan (1) Encounter for pre-operative examination: Chart Review Chart Review: Acceptable Risk for Surgery (urgent procedure ) History Surgery Operation Date: 05/06/23 04:20 Proposed Procedures p Labor Delivery Dilation and Curettage - Griffin Paez MD Height/Weight Height: 5 ft 4 in Weight: 77.564 kg Allergies Allergy/AdvReac Type Severity Reaction Status Date / Time coconut Allergy Severe Anaphylaxis Verified 05/05/23 14:19 fish derived Allergy Intermediate Hives Verified 05/05/23 14:19 iodine in fish Allergy Intermediate Hives Uncoded 05/05/23 14:19 Medications Home Medications Medication Instructions Recorded Confirmed Last Taken buprenorphine HCl 8 mg sublingual 8 mg sublingual TID 11/29/19 05/05/23 05/05/23 09:30 tablet 8 mg Active Medications Generic Name Dose Route Start Last Admin Trade Name Freq PRN Reason Stop Dose Admin Buprenorphine HCl 8 mg 05/05/23 21:00 05/05/23 20:35 Buprenorphine Hcl 8 Mg Subl SL 06/04/23 20:59 8 mg TID ALVAREZ Administration Lactated Ringer's 1,000 mls @ 125 mls/hr 05/05/23 14:20 05/06/23 00:40 Lr IV 05/07/23 14:19 75 mls/hr .Q8H PRN Administration L&D Protocol Protocol Penicillin G Potassium 3 mu/ 106 mls @ 100 mls/hr 05/05/23 18:09 05/06/23 02:56 Dextrose IV 05/15/23 18:08 100 mls/hr Q4H PRN Administration GBS(+) Until Delivery Magnesium Sulfate 40 gm in 1,000 mls @ 50 mls/hr 05/05/23 16:45 05/05/23 19:05 Magnesium Sulfate / Wtr IV 06/04/23 16:44 50 mls/hr .Q20H ALVAREZ Infusion Oxytocin 30 units in 500 mls @ 17 mls/hr 05/05/23 20:22 05/06/23 01:30 Pitocin IV 05/07/23 20:21 1.02 units/hr .Q24H PRN 17 mls/hr Labor Induction/Augmentation Titration Protocol 1.02 UNITS/HR Nicotine 14 mg 05/05/23 20:50 05/05/23 21:02 Nicotine 14 Mg/24 Hr Patch TD 06/04/23 20:49 14 mg DAILY ALVAREZ Administration Past Medical History Medical History Aseptic meningitis (03/22/13) Bartholin cyst Removal Cellulitis of labia Treatment with antibiotics. Cellulitis, neck Drug use [id number] Snorting pain pills. Has been on Subutex since May 2019. Meningitis (09/10/11) Smoker Smokes 1 pack per day Spontaneous 2008 and 2009 Past Family History Family History Grandmother (Paternal) Diabetes Grandfather (Paternal) Diabetes Grandfather (Maternal) Hypertension Past Surgical History Surgical History [place] teeth extracted Social History Smoking Status: Current every day smoker tobacco type: cigarettes Smoking cigarettes per day: 20 Do You Dip or Chew Tobacco: No Hx Alcohol Use: No Hx Substance Use: No substance use type: painkillers Last Used Substance Other:: 03/2019 Painkillers Physical Exam Vital Signs Last Vital Signs Temp 36.9 C 05/06/23 02:58 Pulse 113 H 05/06/23 04:14 Resp 20 05/06/23 02:58 BP 144/101 H 05/06/23 04:14 Pulse Ox 96 05/06/23 04:11 Testing Laboratory Results 05/05/23 19:58 05/05/23 14:34 Urine Color Dark Yellow 05/05/23 14:00 Urine Appearance Cloudy (Clear) A 05/05/23 14:00 Urine pH 6.5 (4.5-7.5) 05/05/23 14:00 Ur Specific [place] 1.018 (1.000-1.030) 05/05/23 14:00 Urine Protein 2+ (Negative) H 05/05/23 14:00 Urine Glucose (UA) Negative (Negative) 05/05/23 14:00 Urine Ketones Negative (Negative) 05/05/23 14:00 Urine Nitrite Negative (Negative) 05/05/23 14:00 Ur Leukocyte Esterase Trace (Negative) H 05/05/23 14:00 Urine WBC (Auto) 10-30 /hpf (0-5) H 05/05/23 14:00 Urine RBC (Auto) 5-10 /hpf (0-4) H 05/05/23 14:00 U Hyaline Cast (Auto) 1-5 /lpf (0-5) 05/05/23 14:00 U Epithel Cells (Auto) >30 /lpf (0-5) H 05/05/23 14:00 Urine Bacteria (Auto) 2+ (Negative) H 05/05/23 14:00 Blood Type O Positive 05/05/23 14:34 Antibody Screen NEGATIVE 05/05/23 14:34
[2023-05-06] MEDS ORDERED: MIDAZOLAM HCL 1 MG/ML 2ML VIAL ONE (04:25)
[2023-05-06] MEDS ORDERED: fentaNYL citrate PF 100 MCG/2 ML VIAL ONE ×2 (04:25→05:17)
[2023-05-06] MEDS ORDERED: PROMETHAZINE HCL 6.25 MG in SODIUM CHLORIDE 0.9% 50 ML IV PRN (04:41)
[2023-05-06] MEDS ORDERED: fentaNYL citrate PF 100 MCG/2 ML VIAL IV PRN (04:41)
[2023-05-06] MEDS ORDERED: ONDANSETRON INJ 2 MG/ML 2 ML VIAL IV PRN (04:41)
[2023-05-06] MEDS ORDERED: ATROPINE SULFATE 0.1 MG/ML 10ML SYR IV PRN (04:41)
[2023-05-06] MEDS ORDERED: AZITHROMYCIN 500 MG in DEXTROSE 5% 250 ML IV STA (05:09)
[2023-05-06] MEDS ORDERED: AZITHROMYCIN 500 MG in DEXTROSE 5% 250 ML IV ONE (05:15)
[2023-05-06] MEDS ORDERED: SODIUM CHLORIDE 0.9% 250 ML IV PRN ×2 (05:44→08:34)
[2023-05-06] MEDS ORDERED: ePHEDrine sulfate 50 MG/ML AMP ONE (05:56)
[2023-05-06] MEDS ORDERED: SUCCINYLCHOLINE CHLORIDE 20 MG/ML 10 ML VIAL IV ONE (05:56)
[2023-05-06] MEDS ORDERED: METOCLOPRAMIDE HCL INJ 5 MG/ML 2 ML VIAL ONE (05:56)
[2023-05-06] MEDS ORDERED: PROPOFOL IV EMULSION 10 MG/ML 20 ML VIAL IV ONE (05:56)
[2023-05-06] MEDS ORDERED: PHENYLEPHRINE HCL 10 MG/ML VIAL ONE (05:56)
[2023-05-06] MEDS ORDERED: ONDANSETRON INJ 2 MG/ML 2 ML VIAL ONE (05:56)
[2023-05-06] MEDS ORDERED: LIDOCAINE 2% MPF LOCAL 5 ML VIAL ONE (05:56)
[2023-05-06] MEDS ORDERED: SODIUM CHLORIDE 0.9% PF INJ 10 ML VIAL ONE (05:56)
[2023-05-06] MEDS ORDERED: miSOPROStoL 200 MCG TAB ONE (06:04)
[2023-05-06] MEDS ORDERED: ACETAMINOPHEN 325 MG TAB PO PRN (06:46)
[2023-05-06] MEDS ORDERED: DIPHTHERIA/TETANUS/PERTUSSIS Vaccine (Tdap, Age 7+yrs) 0.5mL SYR/VL IM ONE (06:46)
[2023-05-06] MEDS ORDERED: OXYTOCIN 30 UNITS/500 ML BAG IV PRN (06:46)
[2023-05-06] MEDS ORDERED: bisacodyL 10 MG SUPP PR PRN (06:46)
[2023-05-06] MEDS ORDERED: miSOPROStoL 200 MCG TAB PR ONE (06:46)
[2023-05-06] MEDS ORDERED: BENZOCAINE 20% AER SPR 82.5 GM CAN EXT PRN (06:46)
[2023-05-06] MEDS ORDERED: HYDROCORTISONE ACETATE 25 MG SUPP PR PRN (06:46)
--- NOTE | 2023-05-06 06:48 | Post Operative Brief Note ---
Immediate Post Op Note v1 Date of Surgery May 06, 2023 Pre & Post Diagnosis Operation Date: 05/06/23 04:20 Pre-Op Diagnosis: retained placenta Post-Op Diagnosis: same as pre-op I identified the patient and participated in the time-out.: Yes Procedure Operation Date: 05/06/23 04:20 Actual Procedures p Labor Delivery Dilation and Curettage - Griffin Paez MD Surgeon Griffin Paez MD [employer] Repairer none Estimated Blood Loss 1,000 Findings Consistent with Post-Op Diagnosis retained placenta Fluids LR Specimens placenta Drains Bernardo Catheter (placed after procedure ended-200cc drained into bag )
--- NOTE | 2023-05-06 07:00 | Anesthesiology Progress Note ---
Date of Service May 06, 2023 Anesthesia Post Procedure Vital Signs Vital Signs: Temp Pulse Resp BP Pulse Ox 05/06/23 06:45 15 05/06/23 06:30 36.4 C L 14 05/05/23 23:00 17 05/05/23 19:01 36.8 C 18 05/05/23 17:10 20 05/05/23 18:08 20 05/05/23 14:22 36.8 C 103 H 20 160/100 H 05/06/23 06:56 100 05/06/23 06:56 103 H 05/06/23 06:56 106 H 113/79 05/06/23 06:51 100 05/06/23 06:51 106 H 05/06/23 06:51 108 H 110/74 05/06/23 06:46 104 H 112/73 100 05/06/23 06:41 101 H 111/71 100 05/06/23 06:36 101 H 100 05/06/23 06:37 100 H 116/73 05/06/23 06:31 100 05/06/23 06:31 102 H 05/06/23 06:31 99 H 108/66 05/06/23 04:35 17 05/06/23 04:35 17 05/06/23 04:36 116 H 98 05/06/23 04:35 110 H 143/98 H 05/06/23 04:31 112 H 98 05/06/23 04:26 113 H 97 05/06/23 04:21 106 H 96 05/06/23 04:16 113 H 98 05/06/23 04:14 113 H 18 144/101 H 05/06/23 04:11 112 H 96 05/06/23 04:06 113 H 96 05/06/23 04:01 115 H 96 05/06/23 03:56 110 H 97 05/06/23 03:51 107 H 97 05/06/23 03:46 104 H 97 05/06/23 03:41 102 H 96 05/06/23 03:39 107 H 88 L 05/06/23 03:36 113 H 97 05/06/23 03:33 113 H 90 05/06/23 03:31 122 H 97 05/06/23 03:28 97 H 89 L 05/06/23 03:26 107 H 98 05/06/23 03:21 96 H 96 05/06/23 03:19 92 H 94 05/06/23 03:16 101 H 97 05/06/23 03:13 96 H 146/83 H 05/06/23 03:11 112 H 98 05/06/23 03:10 106 H 176/96 H 93 05/06/23 03:06 100 H 97 05/06/23 03:04 97 H 92 05/06/23 03:01 93 H 97 05/06/23 02:58 20 05/06/23 02:58 36.9 C 98 H 20 88 L 05/06/23 02:56 101 H 98 05/06/23 02:51 96 H 96 05/06/23 02:50 91 H 94 05/06/23 02:46 93 H 97 05/06/23 02:41 93 H 98 05/06/23 02:40 95 H 163/89 H 05/06/23 02:36 93 H 95 05/06/23 02:31 101 H 99 05/06/23 02:30 89 93 05/06/23 02:26 92 H 96 05/06/23 02:25 90 94 05/06/23 02:21 97 H 97 05/06/23 02:16 88 96 05/06/23 02:11 84 L 05/06/23 02:11 93 H 05/06/23 02:11 91 H 94 05/06/23 02:10 87 157/90 H 05/06/23 02:09 92 H 185/102 H 05/06/23 02:00 20 05/06/23 02:00 20 05/06/23 02:06 95 05/06/23 02:06 90 05/06/23 02:06 88 94 05/06/23 02:01 92 H 97 05/06/23 02:00 91 H 93 05/06/23 01:56 88 98 05/06/23 01:53 91 H 93 05/06/23 01:51 100 H 96 05/06/23 01:46 99 H 95 05/06/23 01:47 99 H 92 05/06/23 01:41 91 H 98 05/06/23 01:36 94 H 98 05/06/23 01:37 93 H 89 L 05/06/23 01:35 89 166/92 H 05/06/23 01:31 97 H 96 05/06/23 01:26 99 H 98 05/06/23 01:21 94 H 80 L 05/06/23 01:19 89 L 05/06/23 01:19 93 H 05/06/23 01:19 91 H 143/82 H 05/06/23 01:16 94 H 77 L 05/06/23 01:15 93 H 156/79 H 05/06/23 01:13 96 H 89 L 05/06/23 01:05 18 05/06/23 01:05 37.3 C 18 05/06/23 01:11 96 H 100 05/06/23 01:09 100 H 159/83 H 05/06/23 01:06 99 H 97 05/06/23 01:07 94 H 90 05/06/23 01:04 96 H 163/80 H 05/06/23 01:01 102 H 100 05/06/23 00:56 91 H 98 05/06/23 00:57 92 H 89 L 05/06/23 00:51 96 H 98 05/06/23 00:49 90 170/96 H 05/06/23 00:47 103 H 176/100 H 05/06/23 00:46 96 H 99 05/06/23 00:41 96 H 98 05/06/23 00:36 90 97 05/06/23 00:31 102 H 96 05/06/23 00:26 90 99 05/06/23 00:21 91 H 98 05/06/23 00:16 95 H 167/91 H 97 05/06/23 00:11 97 H 97 05/06/23 00:06 93 H 99 05/06/23 00:01 96 H 17 99 05/05/23 23:56 93 H 99 05/05/23 23:51 92 H 99 05/05/23 23:46 99 H 98 05/05/23 23:41 94 H 98 05/05/23 23:36 97 H 98 05/05/23 23:31 93 H 99 05/05/23 23:26 94 H 99 05/05/23 23:21 94 H 98 05/05/23 23:17 92 H 160/88 H 05/05/23 23:16 93 H 98 05/05/23 23:11 96 H 98 05/05/23 23:06 91 H 98 05/05/23 23:01 96 H 97 05/05/23 22:53 17 05/05/23 22:53 37.3 C 17 05/05/23 22:56 94 H 99 05/05/23 22:51 101 H 98 05/05/23 22:46 96 05/05/23 22:46 104 H 05/05/23 22:46 100 H 141/87 H 05/05/23 22:45 101 H 94 05/05/23 22:41 102 H 96 05/05/23 22:36 99 H 95 05/05/23 22:31 101 H 96 05/05/23 22:28 99 H 94 05/05/23 22:26 97 H 96 05/05/23 22:21 98 H 94 05/05/23 22:20 99 H 94 05/05/23 22:16 96 05/05/23 22:16 103 H 05/05/23 22:16 97 H 152/85 H 05/05/23 22:15 17 05/05/23 22:15 17 05/05/23 22:13 99 H 94 05/05/23 22:11 98 H 95 05/05/23 22:06 102 H 95 05/05/23 22:05 98 H 94 05/05/23 22:01 97 H 95 05/05/23 22:00 96 H 94 05/05/23 21:56 96 H 95 05/05/23 21:52 97 H 94 05/05/23 21:51 98 H 96 05/05/23 21:46 98 H 142/87 H 94 05/05/23 21:41 94 05/05/23 21:41 95 H 05/05/23 21:41 97 H 94 05/05/23 21:36 96 H 96 05/05/23 21:31 93 H 95 05/05/23 21:26 94 H 96 05/05/23 21:21 95 H 97 05/05/23 21:16 91 H 97 05/05/23 21:12 93 H 141/87 H 05/05/23 21:11 92 H 96 05/05/23 21:00 18 05/05/23 21:00 37.5 C 18 05/05/23 20:30 20 05/05/23 20:30 20 05/05/23 21:08 93 H 151/88 H 05/05/23 21:00 18 05/05/23 21:00 37.5 C 18 05/05/23 21:06 95 H 97 05/05/23 21:04 98 H 143/87 H 05/05/23 21:01 93 H 97 05/05/23 20:58 96 H 148/90 H 05/05/23 20:56 97 H 97 05/05/23 20:53 96 H 161/87 H 05/05/23 20:51 97 H 97 05/05/23 20:47 98 H 157/103 H 05/05/23 20:46 97 H 98 05/05/23 20:43 100 H 137/93 05/05/23 20:41 108 H 96 05/05/23 20:36 100 H 99 05/05/23 20:31 100 H 98 05/05/23 20:26 93 H 97 05/05/23 20:21 92 H 96 05/05/23 20:16 93 H 98 05/05/23 20:13 101 H 160/104 H 05/05/23 20:11 101 H 99 05/05/23 20:06 102 H 98 05/05/23 20:01 94 H 99 05/05/23 19:56 101 H 97 05/05/23 19:51 92 H 98 05/05/23 19:46 99 H 100 05/05/23 19:42 85 163/95 H 05/05/23 19:41 90 99 05/05/23 19:36 86 99 05/05/23 19:31 99 H 99 05/05/23 19:26 95 H 100 05/05/23 19:21 94 H 99 05/05/23 19:16 96 H 99 05/05/23 19:12 83 170/104 H 05/05/23 19:11 95 H 99 05/05/23 19:06 91 H 97 05/05/23 19:01 89 96 05/05/23 18:56 86 97 05/05/23 18:51 86 96 05/05/23 18:46 85 96 05/05/23 18:41 86 97 05/05/23 18:39 86 152/101 H 05/05/23 18:36 85 96 05/05/23 18:35 83 145/98 H 05/05/23 18:31 85 97 05/05/23 18:29 88 146/97 H 05/05/23 18:26 91 H 97 05/05/23 18:24 84 163/103 H 05/05/23 18:21 88 162/100 H 98 05/05/23 18:16 90 98 05/05/23 18:14 90 141/86 H 05/05/23 18:11 92 H 97 05/05/23 18:09 88 151/91 H 05/05/23 18:06 92 H 98 05/05/23 18:04 94 H 171/101 H 05/05/23 18:01 92 H 98 05/05/23 17:56 88 97 05/05/23 17:55 86 175/101 H 05/05/23 17:51 90 97 05/05/23 17:46 95 H 97 05/05/23 17:41 98 H 166/101 H 97 05/05/23 17:36 96 H 99 05/05/23 17:31 100 H 99 05/05/23 17:26 96 H 98 05/05/23 17:25 91 H 144/89 H 05/05/23 17:21 93 H 98 05/05/23 17:16 96 H 97 05/05/23 17:11 93 H 98 05/05/23 17:04 37.3 C 95 H 20 155/106 H 05/05/23 16:54 88 180/106 H 05/05/23 16:07 84 146/86 H 05/05/23 16:03 86 170/91 H 05/05/23 15:47 88 137/88 05/05/23 15:33 85 158/87 H 05/05/23 15:18 89 20 147/86 H 05/05/23 15:02 101 H 156/81 H 05/05/23 14:32 103 H 178/97 H 05/05/23 14:17 103 H 160/100 H 05/05/23 14:01 96 H 154/100 H Transfer of Care Handoff Completed per policy Notes Mental Status: alert / awake / arousable Patient Amnestic to Procedure: Yes Nausea / Vomiting: adequately controlled Pain: adequately controlled Airway Patency, RR, SpO2: stable & adequate BP & HR: stable & adequate Hydration State: stable & adequate Anesthetic Complications: no major complications apparent
[2023-05-06 07:44] LABS: Basophils # (auto) 0.04 K/uL (0-0.2); Basophils % (auto) 0.2 %; Eosinophils # (auto) 0.01 K/uL (0-0.50); Hemoglobin 8.7 g/dl (12.0-16.0); Immature Granulocytes # (auto) 0.28 K/uL (0.01-0.20); Immature Granulocytes % (auto) 1.2 %; Lymphocytes # (auto) 1.54 K/uL (1.2-3.4); Lymphocytes % (auto) 6.8 %; Mean Corpuscular Hemoglobin 29.3 pg (25.0-34.0); Mean Corpuscular Hgb Conc 33.5 g/dL (32.0-36.0); Mean Corpuscular Volume 87.5 fL (80.0-100.0); Mean Platelet Volume 12.9 fL (9.4-12.4); Monocytes # (auto) 1.08 K/uL (0.11-0.59); Monocytes % (auto) 4.8 %; Platelet Count 78 K/uL (130-400); RDW Coefficient of Variation 13.6 % (11.5-14.5); RDW Standard Deviation 42.7 fL (36.4-46.3); Red Blood Count 2.97 M/uL (4.20-5.40); White Blood Count 22.65 K/ul (4.8-10.8)
--- NOTE | 2023-05-06 07:50 | Obstetrical Progress Note ---
Date of Service May 06, 2023 Assessment & Plan (1) Pre-eclampsia, severe, delivered: Preeclampsia with severe features based on severe range blood pressures on admission and a protein creatinine ratio of 0.7 Currently on mag sulfate, will continue for 24 hours Appropriate urine output, no signs or symptoms of mag toxicity A.m. labs pending, will repeat every 6 hours Concern as platelets were 77, no other labs concerning for HELLP syndrome at this time. Present on Admission?: Yes (2) complicated by subutex maintenance, antepartum: Continue Subutex 8 mg 3 times daily, prescribed by Lio Present on Admission?: Yes (3) Retained placenta: Status post dilation and curettage by Dr. Paez (4) hemorrhage: Status post dilation and curettage by Dr. Paez. Vitals within normal limits, bleeding appropriate at this time Labs pending (5) Thrombocytopenia: Last platelets 77, will continue to monitor for possible HELLP syndrome Subjective Patient lying comfortably in bed, was given fentanyl by anesthesia. Has facemask on, blood pressures nonsevere at this time She denies any complaints. She was just given azithromycin 500 mg from anesthesia Physical Exam Constitutional WD/WN, vitals as above Respiratory normal respiratory effort, lungs clear to auscultation Cardiovascular RRR, no murmur, no edema Gastrointestinal (Abdomen) normal bowel sounds, soft, nontender, no hepatosplenomegaly Uterus below fundus Lymphatic SCDs in place + DTRs Results & Data Vital Signs (Past 12 Hours) Vital Signs Temp Pulse Resp BP Pulse Ox 05/06/23 07:15 36.6 C 16 05/06/23 07:00 16 05/06/23 06:45 15 05/06/23 06:30 36.4 C L 14 05/05/23 23:00 17 05/06/23 07:41 100 05/06/23 07:41 113 H 05/06/23 07:41 110 H 103/70 05/06/23 07:36 100 05/06/23 07:36 103 H 05/06/23 07:36 104 H 106/77 05/06/23 07:31 100 05/06/23 07:31 103 H 05/06/23 07:31 103 H 104/72 05/06/23 07:26 100 05/06/23 07:26 106 H 05/06/23 07:26 108 H 106/71 05/06/23 07:21 100 05/06/23 07:21 103 H 06 07:21 105 H 105/73 05/06/23 07:16 101 H 109/75 100 06 07:14 107 H 106/74 05/06/23 07:11 111 H 114/81 100 05/06/23 07:09 104 H 112/79 05/06/23 07:06 105 H 100 05/06/23 07:01 110 H 100 05/06/23 06:56 100 05/06/23 06:56 103 H 05/06/23 06:56 106 H 113/79 05/06/23 06:51 100 05/06/23 06:51 106 H 05/06/23 06:51 108 H 110/74 05/06/23 06:46 104 H 112/73 100 05/06/23 06:41 101 H 111/71 100 05/06/23 06:36 101 H 100 05/06/23 06:37 100 H 116/73 05/06/23 06:31 100 05/06/23 06:31 102 H 05/06/23 06:31 99 H 108/66 05/06/23 04:35 17 05/06/23 04:35 17 05/06/23 04:36 116 H 98 05/06/23 04:35 110 H 143/98 H 05/06/23 04:31 112 H 98 05/06/23 04:26 113 H 97 05/06/23 04:21 106 H 96 05/06/23 04:16 113 H 98 05/06/23 04:14 113 H 18 144/101 H 05/06/23 04:11 112 H 96 05/06/23 04:06 113 H 96 05/06/23 04:01 115 H 96 05/06/23 03:56 110 H 97 05/06/23 03:51 107 H 97 05/06/23 03:46 104 H 97 05/06/23 03:41 102 H 96 05/06/23 03:39 107 H 88 L 05/06/23 03:36 113 H 97 05/06/23 03:33 113 H 90 05/06/23 03:31 122 H 97 05/06/23 03:28 97 H 89 L 05/06/23 03:26 107 H 98 05/06/23 03:21 96 H 96 05/06/23 03:19 92 H 94 05/06/23 03:16 101 H 97 05/06/23 03:13 96 H 146/83 H 05/06/23 03:11 112 H 98 05/06/23 03:10 106 H 176/96 H 93 05/06/23 03:06 100 H 97 05/06/23 03:04 97 H 92 05/06/23 03:01 93 H 97 05/06/23 02:58 20 05/06/23 02:58 36.9 C 98 H 20 88 L 05/06/23 02:56 101 H 98 05/06/23 02:51 96 H 96 05/06/23 02:50 91 H 94 05/06/23 02:46 93 H 97 05/06/23 02:41 93 H 98 05/06/23 02:40 95 H 163/89 H 05/06/23 02:36 93 H 95 05/06/23 02:31 101 H 99 05/06/23 02:30 89 93 05/06/23 02:26 92 H 96 05/06/23 02:25 90 94 05/06/23 02:21 97 H 97 05/06/23 02:16 88 96 05/06/23 02:11 84 L 05/06/23 02:11 93 H 05/06/23 02:11 91 H 94 05/06/23 02:10 87 157/90 H 05/06/23 02:09 92 H 185/102 H 05/06/23 02:00 20 05/06/23 02:00 20 05/06/23 02:06 95 05/06/23 02:06 90 05/06/23 02:06 88 94 05/06/23 02:01 92 H 97 05/06/23 02:00 91 H 93 05/06/23 01:56 88 98 05/06/23 01:53 91 H 93 05/06/23 01:51 100 H 96 05/06/23 01:46 99 H 95 05/06/23 01:47 99 H 92 05/06/23 01:41 91 H 98 05/06/23 01:36 94 H 98 05/06/23 01:37 93 H 89 L 05/06/23 01:35 89 166/92 H 05/06/23 01:31 97 H 96 05/06/23 01:26 99 H 98 05/06/23 01:21 94 H 80 L 05/06/23 01:19 89 L 05/06/23 01:19 93 H 05/06/23 01:19 91 H 143/82 H 05/06/23 01:16 94 H 77 L 05/06/23 01:15 93 H 156/79 H 05/06/23 01:13 96 H 89 L 05/06/23 01:05 18 05/06/23 01:05 37.3 C 18 05/06/23 01:11 96 H 100 05/06/23 01:09 100 H 159/83 H 05/06/23 01:06 99 H 97 05/06/23 01:07 94 H 90 05/06/23 01:04 96 H 163/80 H 05/06/23 01:01 102 H 100 05/06/23 00:56 91 H 98 05/06/23 00:57 92 H 89 L 05/06/23 00:51 96 H 98 05/06/23 00:49 90 170/96 H 05/06/23 00:47 103 H 176/100 H 05/06/23 00:46 96 H 99 05/06/23 00:41 96 H 98 05/06/23 00:36 90 97 05/06/23 00:31 102 H 96 05/06/23 00:26 90 99 05/06/23 00:21 91 H 98 05/06/23 00:16 95 H 167/91 H 97 05/06/23 00:11 97 H 97 05/06/23 00:06 93 H 99 05/06/23 00:01 96 H 17 99 05/05/23 23:56 93 H 99 05/05/23 23:51 92 H 99 05/05/23 23:46 99 H 98 05/05/23 23:41 94 H 98 05/05/23 23:36 97 H 98 05/05/23 23:31 93 H 99 05/05/23 23:26 94 H 99 05/05/23 23:21 94 H 98 05/05/23 23:17 92 H 160/88 H 05/05/23 23:16 93 H 98 05/05/23 23:11 96 H 98 05/05/23 23:06 91 H 98 05/05/23 23:01 96 H 97 05/05/23 22:53 17 05/05/23 22:53 37.3 C 17 05/05/23 22:56 94 H 99 05/05/23 22:51 101 H 98 05/05/23 22:46 96 05/05/23 22:46 104 H 05/05/23 22:46 100 H 141/87 H 05/05/23 22:45 101 H 94 05/05/23 22:41 102 H 96 05/05/23 22:36 99 H 95 05/05/23 22:31 101 H 96 05/05/23 22:28 99 H 94 05/05/23 22:26 97 H 96 05/05/23 22:21 98 H 94 05/05/23 22:20 99 H 94 05/05/23 22:16 96 05/05/23 22:16 103 H 05/05/23 22:16 97 H 152/85 H 05/05/23 22:15 17 05/05/23 22:15 17 05/05/23 22:13 99 H 94 05/05/23 22:11 98 H 95 05/05/23 22:06 102 H 95 05/05/23 22:05 98 H 94 05/05/23 22:01 97 H 95 05/05/23 22:00 96 H 94 05/05/23 21:56 96 H 95 05/05/23 21:52 97 H 94 05/05/23 21:51 98 H 96 05/05/23 21:46 98 H 142/87 H 94 05/05/23 21:41 94 05/05/23 21:41 95 H 05/05/23 21:41 97 H 94 05/05/23 21:36 96 H 96 05/05/23 21:31 93 H 95 05/05/23 21:26 94 H 96 05/05/23 21:21 95 H 97 05/05/23 21:16 91 H 97 05/05/23 21:12 93 H 141/87 H 05/05/23 21:11 92 H 96 05/05/23 21:00 18 05/05/23 21:00 37.5 C 18 05/05/23 20:30 20 05/05/23 20:30 20 05/05/23 21:08 93 H 151/88 H 05/05/23 21:00 18 05/05/23 21:00 37.5 C 18 05/05/23 21:06 95 H 97 05/05/23 21:04 98 H 143/87 H 05/05/23 21:01 93 H 97 05/05/23 20:58 96 H 148/90 H 05/05/23 20:56 97 H 97 05/05/23 20:53 96 H 161/87 H 05/05/23 20:51 97 H 97 05/05/23 20:47 98 H 157/103 H 05/05/23 20:46 97 H 98 05/05/23 20:43 100 H 137/93 05/05/23 20:41 108 H 96 05/05/23 20:36 100 H 99 05/05/23 20:31 100 H 98 05/05/23 20:26 93 H 97 05/05/23 20:21 92 H 96 05/05/23 20:16 93 H 98 05/05/23 20:13 101 H 160/104 H 05/05/23 20:11 101 H 99 05/05/23 20:06 102 H 98 05/05/23 20:01 94 H 99 05/05/23 19:56 101 H 97 05/05/23 19:51 92 H 98 Laboratory Results Laboratory Results WBC 22.65 K/ul (4.8-10.8) H D 05/06/23 06:59 RBC 2.97 M/uL (4.20-5.40) L 05/06/23 06:59 Hgb 8.7 g/dl (12.0-16.0) L D 05/06/23 06:59 Hct 26.0 % (37.0-47.0) L 05/06/23 06:59 MCV 87.5 fL (80.0-100.0) 05/06/23 06:59 MCH 29.3 pg (25.0-34.0) 05/06/23 06:59 MCHC 33.5 g/dL (32.0-36.0) 05/06/23 06:59 RDW Std Deviation 42.7 fL (36.4-46.3) 05/06/23 06:59 RDW Coeff of Alex 13.6 % (11.5-14.5) 05/06/23 06:59 Plt Count 78 K/uL (130-400) L 05/06/23 06:59 MPV 12.9 fL (9.4-12.4) H 05/06/23 06:59 Immature Gran % (Auto) 1.2 % 05/06/23 06:59 Neut % (Auto) 87.0 % 05/06/23 06:59 Lymph % (Auto) 6.8 % 05/06/23 06:59 [place] % (Auto) 4.8 % 05/06/23 06:59 Eos % (Auto) 0.0 % 05/06/23 06:59 Baso % (Auto) 0.2 % 05/06/23 06:59 Neut # (Auto) 19.70 K/uL (1.40-6.50) H 05/06/23 06:59 Lymph # (Auto) 1.54 K/uL (1.2-3.4) 05/06/23 06:59 [place] # (Auto) 1.08 K/uL (0.11-0.59) H 05/06/23 06:59 Eos # (Auto) 0.01 K/uL (0-0.50) 05/06/23 06:59 Baso # (Auto) 0.04 K/uL (0-0.2) 05/06/23 06:59 Immature Gran # (Auto) 0.28 K/uL (0.01-0.20) H 05/06/23 06:59 Platelet Estimate Decreased (Normal) L 05/05/23 14:34 Sodium 133 mmol/L (136-145) L 05/05/23 14:34 Potassium 3.7 mmol/L (3.5-5.1) 05/05/23 14:34 Chloride 104 mmol/L (98-107) 05/05/23 14:34 Carbon Dioxide 26 mmol/L (21-32) 05/05/23 14:34 Anion Gap 3 (3-11) 05/05/23 14:34 BUN 7 mg/dl (6-23) 05/05/23 14:34 Creatinine 0.63 mg/dl (0.6-1.2) 05/05/23 14:34 Est Cr Clr Drug Dosing 128.0 ml/min 05/05/23 14:34 Est GFR ( Amer) 136.6 ml/min 05/05/23 14:34 Est GFR (Non-Af Amer) 117.9 ml/min 05/05/23 14:34 BUN/Creatinine Ratio 11.1 (10-20) 05/05/23 14:34 Glucose 97 mg/dl (70-99(Fasting)) 05/05/23 14:34 Uric Acid 5.0 mg/dl (2.6-7.2) 05/05/23 14:34 Calcium 8.1 mg/dl (8.6-10.3) L 05/05/23 14:34 Magnesium (Sulf Ther) 4.4 mg/dL (4.0-8.0) 05/05/23 23:25 Total Bilirubin 0.5 mg/dl (0.2-1.0) 05/05/23 14:34 Direct Bilirubin 0.2 mg/dl (0-0.2) 05/05/23 14:34 AST 31 U/L (13-39) 05/05/23 14:34 ALT 21 U/L (7-52) 05/05/23 14:34 Alkaline Phosphatase 237 U/L (34-104) H 05/05/23 14:34 Lactate Dehydrogenase 222 U/L (86-244) 05/05/23 14:34 Total Protein 5.6 gm/dl (6.0-8.3) L 05/05/23 14:34 Albumin 2.9 gm/dl (3.4-5.0) L 05/05/23 14:34 Globulin 2.7 gm/dl (2.5-4.0) 05/05/23 14:34 Albumin/Globulin Ratio 1.1 (0.9-2) 05/05/23 14:34 Urine Color Dark Yellow 05/05/23 14:00 Urine Appearance Cloudy (Clear) A 05/05/23 14:00 Urine pH 6.5 (4.5-7.5) 05/05/23 14:00 Ur Specific [place] 1.018 (1.000-1.030) 05/05/23 14:00 Urine Protein 2+ (Negative) H 05/05/23 14:00 Urine Glucose (UA) Negative (Negative) 05/05/23 14:00 Urine Ketones Negative (Negative) 05/05/23 14:00 Urine Blood 1+ (Negative) H 05/05/23 14:00 Urine Nitrite Negative (Negative) 05/05/23 14:00 Urine Bilirubin Negative (Negative) 05/05/23 14:00 Urine Urobilinogen Negative (Negative) 05/05/23 14:00 Ur Leukocyte Esterase Trace (Negative) H 05/05/23 14:00 Urine WBC (Auto) 10-30 /hpf (0-5) H 05/05/23 14:00 Urine RBC (Auto) 5-10 /hpf (0-4) H 05/05/23 14:00 U Hyaline Cast (Auto) 1-5 /lpf (0-5) 05/05/23 14:00 U Epithel Cells (Auto) >30 /lpf (0-5) H 05/05/23 14:00 Urine Bacteria (Auto) 2+ (Negative) H 05/05/23 14:00 Ur Random Creatinine 126.0 mg/dl 05/05/23 14:00 U Random Total Protein 91.9 mg/dl (0-11.9) H 05/05/23 14:00 Protein/Creatinin Ratio 0.7 (0-0.2) H 05/05/23 14:00 Urine Opiates Screen Neg (Neg) 05/05/23 14:00 Ur Methadone, Qual Neg (Neg) 05/05/23 14:00 Urine Barbiturates Neg (Neg) 05/05/23 14:00 Ur Phencyclidine (PCP) Neg (Neg) 05/05/23 14:00 U Amphetamin/Meth Scrn Pos (Neg) H 05/05/23 14:00 MDMA (Ecstasy) Screen Neg (Neg) 05/05/23 14:00 U Benzodiazepines Scrn Neg (Neg) 05/05/23 14:00 Ur Cocaine Metabolite Neg (Neg) 05/05/23 14:00 U Marijuana (THC) Screen Neg (Neg) 05/05/23 14:00 RPR Nonreactive (Nonreactive) 05/05/23 14:34 Rubella IgG Antibody Immune (Immune) 05/05/23 14:34 Rubella IgG Ab Index 25.1 IU/mL 05/05/23 14:34 SARS-CoV-2, RNA, NAAT NEGATIVE (NEGATIVE) 05/05/23 Unknown Blood Type O Positive 05/05/23 14:34 Blood Type Recheck O Positive 05/05/23 16:07 Antibody Screen NEGATIVE 05/05/23 14:34 Crossmatch See Detail 05/05/23 14:34
[2023-05-06] MEDS: DOCUSATE SODIUM 100 MG CAP PO SCH ×2 (07:55→21:19)
[2023-05-06] MEDS: PRENATAL VITAMIN 1 TAB PO SCH (07:55)
[2023-05-06] MEDS ORDERED: ACETAMINOPHEN 325 MG TAB PO ONE (08:34)
--- NOTE | 2023-05-06 08:34 | Progress Note ---
Date of Service May 06, 2023 Assessment & Plan (1) Pre-eclampsia, severe, delivered: (2) complicated by subutex maintenance, antepartum: (3) Retained placenta: (4) hemorrhage: (5) Thrombocytopenia: Admission and Anticipated Discharge Date Admission Date: May 05, 2023 Subjective Reviewed PDMP website, patient is confirmed to be on 8 mg buprenorphine 3 times a day Last prescription was on 04/20/2023 for 84 pills, 28-day supply Which was picked up at the [facility] pharmacy Prescriber * Name:ERIC MCKINLEY * * LIC:[id number] * Address:[place] [address], [place] Results & Data Vital Signs (Past 12 Hours) Vital Signs Temp Pulse Resp BP Pulse Ox 05/06/23 07:15 36.6 C 16 05/06/23 07:00 16 05/06/23 06:45 15 05/06/23 06:30 36.4 C L 14 05/05/23 23:00 17 05/06/23 08:31 100 05/06/23 08:31 112 H 05/06/23 08:31 111 H 89/60 L 05/06/23 08:26 111 H 92/64 L 100 05/06/23 08:21 109 H 95/69 L 100 05/06/23 08:16 107 H 95/68 L 100 05/06/23 08:11 100 05/06/23 08:11 108 H 05/06/23 08:11 108 H 89/65 L 05/06/23 08:06 100 05/06/23 08:06 111 H 05/06/23 08:06 108 H 87/57 L 05/06/23 08:03 109 H 93 05/06/23 08:01 100 05/06/23 08:01 111 H 05/06/23 08:01 110 H 85/52 L 05/06/23 07:56 110 H 86/53 L 95 05/06/23 07:57 114 H 85/53 L 05/06/23 07:51 110 H 101/75 100 05/06/23 07:46 110 H 102/74 100 05/06/23 07:41 100 05/06/23 07:41 113 H 05/06/23 07:41 110 H 103/70 05/06/23 07:36 100 05/06/23 07:36 103 H 05/06/23 07:36 104 H 106/77 05/06/23 07:31 100 05/06/23 07:31 103 H 05/06/23 07:31 103 H 104/72 05/06/23 07:26 100 05/06/23 07:26 106 H 05/06/23 07:26 108 H 106/71 05/06/23 07:21 100 05/06/23 07:21 103 H 05/06/23 07:21 105 H 105/73 05/06/23 07:16 101 H 109/75 100 05/06/23 07:14 107 H 106/74 05/06/23 07:11 111 H 114/81 100 05/06/23 07:09 104 H 112/79 05/06/23 07:06 105 H 100 05/06/23 07:01 110 H 100 05/06/23 06:56 100 05/06/23 06:56 103 H 05/06/23 06:56 106 H 113/79 05/06/23 06:51 100 05/06/23 06:51 106 H 05/06/23 06:51 108 H 110/74 05/06/23 06:46 104 H 112/73 100 05/06/23 06:41 101 H 111/71 100 05/06/23 06:36 101 H 100 05/06/23 06:37 100 H 116/73 05/06/23 06:31 100 05/06/23 06:31 102 H 05/06/23 06:31 99 H 108/66 05/06/23 04:35 17 05/06/23 04:35 17 05/06/23 04:36 116 H 98 05/06/23 04:35 110 H 143/98 H 05/06/23 04:31 112 H 98 05/06/23 04:26 113 H 97 05/06/23 04:21 106 H 96 05/06/23 04:16 113 H 98 05/06/23 04:14 113 H 18 144/101 H 05/06/23 04:11 112 H 96 05/06/23 04:06 113 H 96 05/06/23 04:01 115 H 96 05/06/23 03:56 110 H 97 05/06/23 03:51 107 H 97 05/06/23 03:46 104 H 97 05/06/23 03:41 102 H 96 05/06/23 03:39 107 H 88 L 05/06/23 03:36 113 H 97 05/06/23 03:33 113 H 90 05/06/23 03:31 122 H 97 05/06/23 03:28 97 H 89 L 05/06/23 03:26 107 H 98 05/06/23 03:21 96 H 96 05/06/23 03:19 92 H 94 05/06/23 03:16 101 H 97 05/06/23 03:13 96 H 146/83 H 05/06/23 03:11 112 H 98 05/06/23 03:10 106 H 176/96 H 93 05/06/23 03:06 100 H 97 05/06/23 03:04 97 H 92 05/06/23 03:01 93 H 97 05/06/23 02:58 20 05/06/23 02:58 36.9 C 98 H 20 88 L 05/06/23 02:56 101 H 98 05/06/23 02:51 96 H 96 05/06/23 02:50 91 H 94 05/06/23 02:46 93 H 97 05/06/23 02:41 93 H 98 05/06/23 02:40 95 H 163/89 H 05/06/23 02:36 93 H 95 05/06/23 02:31 101 H 99 05/06/23 02:30 89 93 05/06/23 02:26 92 H 96 05/06/23 02:25 90 94 05/06/23 02:21 97 H 97 05/06/23 02:16 88 96 05/06/23 02:11 84 L 05/06/23 02:11 93 H 05/06/23 02:11 91 H 94 05/06/23 02:10 87 157/90 H 05/06/23 02:09 92 H 185/102 H 05/06/23 02:00 20 05/06/23 02:00 20 05/06/23 02:06 95 05/06/23 02:06 90 05/06/23 02:06 88 94 05/06/23 02:01 92 H 97 05/06/23 02:00 91 H 93 05/06/23 01:56 88 98 05/06/23 01:53 91 H 93 05/06/23 01:51 100 H 96 05/06/23 01:46 99 H 95 05/06/23 01:47 99 H 92 05/06/23 01:41 91 H 98 05/06/23 01:36 94 H 98 05/06/23 01:37 93 H 89 L 05/06/23 01:35 89 166/92 H 05/06/23 01:31 97 H 96 05/06/23 01:26 99 H 98 05/06/23 01:21 94 H 80 L 05/06/23 01:19 89 L 05/06/23 01:19 93 H 05/06/23 01:19 91 H 143/82 H 05/06/23 01:16 94 H 77 L 05/06/23 01:15 93 H 156/79 H 05/06/23 01:13 96 H 89 L 05/06/23 01:05 18 05/06/23 01:05 37.3 C 18 05/06/23 01:11 96 H 100 05/06/23 01:09 100 H 159/83 H 05/06/23 01:06 99 H 97 05/06/23 01:07 94 H 90 05/06/23 01:04 96 H 163/80 H 05/06/23 01:01 102 H 100 05/06/23 00:56 91 H 98 05/06/23 00:57 92 H 89 L 05/06/23 00:51 96 H 98 05/06/23 00:49 90 170/96 H 05/06/23 00:47 103 H 176/100 H 05/06/23 00:46 96 H 99 05/06/23 00:41 96 H 98 05/06/23 00:36 90 97 05/06/23 00:31 102 H 96 05/06/23 00:26 90 99 05/06/23 00:21 91 H 98 05/06/23 00:16 95 H 167/91 H 97 05/06/23 00:11 97 H 97 05/06/23 00:06 93 H 99 05/06/23 00:01 96 H 17 99 05/05/23 23:56 93 H 99 05/05/23 23:51 92 H 99 05/05/23 23:46 99 H 98 05/05/23 23:41 94 H 98 05/05/23 23:36 97 H 98 05/05/23 23:31 93 H 99 05/05/23 23:26 94 H 99 05/05/23 23:21 94 H 98 05/05/23 23:17 92 H 160/88 H 05/05/23 23:16 93 H 98 05/05/23 23:11 96 H 98 05/05/23 23:06 91 H 98 05/05/23 23:01 96 H 97 05/05/23 22:53 17 05/05/23 22:53 37.3 C 17 05/05/23 22:56 94 H 99 05/05/23 22:51 101 H 98 05/05/23 22:46 96 05/05/23 22:46 104 H 05/05/23 22:46 100 H 141/87 H 05/05/23 22:45 101 H 94 05/05/23 22:41 102 H 96 05/05/23 22:36 99 H 95 05/05/23 22:31 101 H 96 05/05/23 22:28 99 H 94 05/05/23 22:26 97 H 96 05/05/23 22:21 98 H 94 05/05/23 22:20 99 H 94 05/05/23 22:16 96 05/05/23 22:16 103 H 05/05/23 22:16 97 H 152/85 H 05/05/23 22:15 17 05/05/23 22:15 17 05/05/23 22:13 99 H 94 05/05/23 22:11 98 H 95 05/05/23 22:06 102 H 95 05/05/23 22:05 98 H 94 05/05/23 22:01 97 H 95 05/05/23 22:00 96 H 94 05/05/23 21:56 96 H 95 05/05/23 21:52 97 H 94 05/05/23 21:51 98 H 96 05/05/23 21:46 98 H 142/87 H 94 05/05/23 21:41 94 05/05/23 21:41 95 H 06 21:41 97 H 94 05/05/23 21:36 96 H 96 05/05/23 21:31 93 H 95 05/05/23 21:26 94 H 96 05/05/23 21:21 95 H 97 05/05/23 21:16 91 H 97 05/05/23 21:12 93 H 141/87 H 05/05/23 21:11 92 H 96 05/05/23 21:00 18 05/05/23 21:00 37.5 C 18 05/05/23 21:08 93 H 151/88 H 05/05/23 21:00 18 05/05/23 21:00 37.5 C 18 05/05/23 21:06 95 H 97 05/05/23 21:04 98 H 143/87 H 05/05/23 21:01 93 H 97 05/05/23 20:58 96 H 148/90 H 05/05/23 20:56 97 H 97 05/05/23 20:53 96 H 161/87 H 05/05/23 20:51 97 H 97 05/05/23 20:47 98 H 157/103 H 05/05/23 20:46 97 H 98 05/05/23 20:43 100 H 137/93 05/05/23 20:41 108 H 96 05/05/23 20:36 100 H 99
[2023-05-06 08:48] LABS: Fibrinogen 342 mg/dl (184-400)
[2023-05-06 08:53] LABS: Albumin Globulin Ratio 1.1 (0.9-2); Albumin Level 2.1 gm/dl (3.4-5.0); BUN Creatinine Ratio 9.1 (10-20); Bilirubin,Total 0.5 mg/dl (0.2-1.0); Calcium 6.2 mg/dl (8.6-10.3); Creatinine Clr Calc Pharmacy 122.2 ml/min; Est GFR (African American) 134.5 ml/min; Est GFR (Non-African American) 116.1 ml/min; Globulin 1.9 gm/dl (2.5-4.0); Potassium 4.3 mmol/L (3.5-5.1)
[2023-05-06] MEDS: buprenorphine HCL 8 MG SUBL SL SCH ×2 (08:53→21:19)
[2023-05-06] MEDS: MAGNESIUM SULFATE / WTR 40 GM/1,000 ML BAG IV SCH (09:35)
[2023-05-06] MEDS: buprenorphine HCL 2 MG SUBL SL SCH (14:17)
[2023-05-06 14:26] LABS: Basophils # (auto) 0.02 K/uL (0-0.2); Basophils % (auto) 0.1 %; Eosinophils # (auto) 0.01 K/uL (0-0.50); Eosinophils % (auto) 0.1 %; Hematocrit (blood only) 31.6 % (37.0-47.0); Hemoglobin 10.9 g/dl (12.0-16.0); Immature Granulocytes # (auto) 0.15 K/uL (0.01-0.20); Immature Granulocytes % (auto) 0.8 %; Lymphocytes % (auto) 12.8 %; Mean Corpuscular Hemoglobin 30.2 pg (25.0-34.0); Mean Corpuscular Hgb Conc 34.5 g/dL (32.0-36.0); Mean Corpuscular Volume 87.5 fL (80.0-100.0); Mean Platelet Volume 12.4 fL (9.4-12.4); Monocytes # (auto) 0.94 K/uL (0.11-0.59); Neutrophils # (auto) 15.19 K/uL (1.40-6.50); Neutrophils % (auto) 81.2 %; Platelet Count 71 K/uL (130-400); RDW Coefficient of Variation 14.3 % (11.5-14.5); RDW Standard Deviation 44.7 fL (36.4-46.3); Red Blood Count 3.61 M/uL (4.20-5.40); White Blood Count 18.71 K/ul (4.8-10.8)
[2023-05-06 14:52] LABS: Albumin Globulin Ratio 1.1 (0.9-2); Albumin Level 2.2 gm/dl (3.4-5.0); BUN Creatinine Ratio 9.5 (10-20); Bilirubin,Total 0.7 mg/dl (0.2-1.0); Calcium 5.7 mg/dl (8.6-10.3); Est GFR (African American) 136.6 ml/min; Est GFR (Non-African American) 117.9 ml/min; Magnesium Therapeutic L&D Only 5.5 mg/dL (4.0-8.0); Potassium 4.3 mmol/L (3.5-5.1); Total Protein 4.2 gm/dl (6.0-8.3)
[2023-05-06] MEDS ORDERED: STAT IV STA ×2 (15:34→21:02)
[2023-05-06] MEDS ORDERED: CALCITRIOL 0.25 MCG CAPSULE PO STA (15:40)
[2023-05-06] MEDS ORDERED: CALCIUM GLUCONATE 10% 2,000 MG in DEXTROSE 5% 50 ML IV ONE ×2 (15:45→21:15)
--- NOTE | 2023-05-06 18:14 | Obstetrical Progress Note ---
Date of Service May 06, 2023 Assessment & Plan (1) complicated by subutex maintenance, antepartum: (2) Retained placenta: (3) hemorrhage: Status post 2 units of packed red blood cells (4) Thrombocytopenia: (5) HELLP syndrome: Meets criteria for HELLP syndrome based on low platelets, hemolysis and elevated liver enzymes Continue repeat labs every 6 hours Plan to discontinue mag 24 hours after delivery, no signs or symptoms of mag toxicity, 2+ DTRs, adequate urine output (6) Hypocalcemia: Status post calcium gluconate treatment, currently on p.o. calcium Subjective Patient was sleeping comfortably in bed when I arrived, easily awoken. Denies any headache, blurry vision, right upper quadrant epigastric pain. Otherwise feeling well. Physical Exam Constitutional WD/WN, vitals as above Respiratory normal respiratory effort, lungs clear to auscultation Cardiovascular RRR, no murmur, no edema Gastrointestinal (Abdomen) normal bowel sounds, soft, nontender, no hepatosplenomegaly Fundus below umbilicus Results & Data Vital Signs (Past 12 Hours) Vital Signs Temp Pulse Resp BP Pulse Ox 05/06/23 17:30 18 05/06/23 16:30 20 05/06/23 15:30 37.2 C 20 05/06/23 15:30 20 05/06/23 14:58 16 05/06/23 14:00 18 05/06/23 13:40 37.2 C 101 H 16 108/67 97 05/06/23 13:35 36.4 C L 100 H 16 107/64 97 05/06/23 13:20 37.2 C 100 H 16 105/68 97 05/06/23 13:00 16 05/06/23 12:49 37.2 C 109 H 16 86/50 L 99 05/06/23 12:35 37.2 C 96 H 20 100/56 L 100 05/06/23 12:18 37.2 C 97 H 16 122/72 100 05/06/23 12:05 37.2 C 109 H 14 119/78 100 05/06/23 12:00 16 05/06/23 11:30 14 05/06/23 11:50 37.2 C 101 H 15 115/77 100 05/06/23 11:45 37.2 C 102 H 18 120/80 100 05/06/23 11:29 37.5 C 99 H 14 119/76 100 05/06/23 11:15 37.0 C 105 H 16 110/71 100 05/06/23 11:00 18 05/06/23 11:00 37.0 C 105 H 15 130/85 100 05/06/23 10:29 37.0 C 104 H 14 103/70 98 05/06/23 10:15 37.0 C 110 H 16 140/76 05/06/23 10:00 16 05/06/23 09:56 37.0 C 113 H 18 88/58 L 100 05/06/23 09:44 37.0 C 113 H 16 87/55 L 99 05/06/23 09:00 16 05/06/23 08:00 18 05/06/23 07:30 16 05/06/23 07:15 18 05/06/23 09:27 37 C 113 H 20 86/51 L 99 05/06/23 09:00 37.0 C 16 100 05/06/23 07:15 36.6 C 16 05/06/23 07:00 16 05/06/23 06:45 15 05/06/23 06:30 36.4 C L 14 05/06/23 18:06 112 H 100 05/06/23 18:01 106 H 99 05/06/23 17:56 108 H 99 05/06/23 17:57 100 H 129/73 05/06/23 17:51 104 H 100 05/06/23 17:46 103 H 99 05/06/23 17:41 101 H 99 05/06/23 17:36 103 H 98 05/06/23 17:31 101 H 100 05/06/23 17:26 111 H 99 05/06/23 17:21 120 H 100 05/06/23 17:16 112 H 100 05/06/23 17:11 117 H 99 05/06/23 17:06 110 H 100 05/06/23 17:01 112 H 99 05/06/23 17:02 116 H 90 05/06/23 16:56 111 H 100 05/06/23 16:57 107 H 117/71 05/06/23 16:51 103 H 82 L 05/06/23 16:46 102 H 97 05/06/23 16:41 121 H 98 05/06/23 16:36 104 H 97 05/06/23 16:31 101 H 97 05/06/23 16:26 101 H 98 05/06/23 16:21 98 H 99 05/06/23 16:16 120 H 97 05/06/23 16:11 107 H 98 05/06/23 16:06 117 H 97 05/06/23 16:01 112 H 97 05/06/23 15:59 110 H 92 05/06/23 15:57 114 H 124/70 05/06/23 15:56 118 H 96 05/06/23 15:51 115 H 96 05/06/23 15:46 109 H 97 05/06/23 15:41 118 H 97 05/06/23 15:36 115 H 97 05/06/23 15:31 121 H 99 05/06/23 15:26 106 H 100 05/06/23 15:21 118 H 100 05/06/23 15:19 113 H 137/91 05/06/23 15:16 119 H 99 05/06/23 15:11 111 H 100 05/06/23 15:06 114 H 100 05/06/23 15:01 110 H 100 05/06/23 14:56 111 H 100 05/06/23 14:51 110 H 100 05/06/23 14:46 112 H 100 05/06/23 14:41 110 H 100 05/06/23 14:36 118 H 100 05/06/23 14:31 117 H 100 05/06/23 14:26 119 H 100 05/06/23 14:21 119 H 99 05/06/23 14:16 115 H 100 05/06/23 14:11 108 H 100 05/06/23 14:06 114 H 100 05/06/23 14:01 122 H 100 05/06/23 13:56 102 H 120/71 100 05/06/23 13:51 104 H 117/84 100 05/06/23 13:46 102 H 112/70 99 05/06/23 13:41 97 05/06/23 13:41 100 H 05/06/23 13:41 100 H 110/66 06 13:36 98 05/06/23 13:36 100 H 05/06/23 13:36 96 H 108/67 05/06/23 13:31 97 05/06/23 13:31 99 H 05/06/23 13:31 98 H 107/64 05/06/23 13:26 97 05/06/23 13:26 99 H 05/06/23 13:26 97 H 112/77 05/06/23 13:21 101 H 105/68 97 05/06/23 13:16 96 H 110/69 97 05/06/23 13:11 97 05/06/23 13:11 101 H 05/06/23 13:11 103 H 103/73 05/06/23 13:06 97 05/06/23 13:06 103 H 05/06/23 13:06 102 H 111/74 05/06/23 13:01 97 05/06/23 13:01 103 H 05/06/23 13:01 104 H 115/76 05/06/23 12:56 97 05/06/23 12:56 104 H 05/06/23 12:56 104 H 115/73 05/06/23 12:51 101 H 86/51 L 99 05/06/23 12:52 100 H 123/81 05/06/23 12:48 102 H 86/50 L 05/06/23 12:47 101 H 89/59 L 05/06/23 12:46 101 H 87/60 L 99 05/06/23 12:41 101 H 95/51 L 100 05/06/23 12:36 100 05/06/23 12:36 98 H 05/06/23 12:36 98 H 100/56 L 05/06/23 12:31 100 H 100 05/06/23 12:32 100 H 119/57 L 05/06/23 12:26 100 05/06/23 12:26 94 H 05/06/23 12:26 95 H 118/98 05/06/23 12:21 98 H 123/79 100 05/06/23 12:16 107 H 122/72 100 05/06/23 12:11 104 H 100 05/06/23 12:12 105 H 133/61 05/06/23 12:08 104 H 131/64 05/06/23 12:07 118 H 156/110 H 05/06/23 12:06 115 H 176/116 H 100 05/06/23 12:01 107 H 100 05/06/23 12:02 111 H 119/78 06/21/23 11:56 100 05/06/23 11:56 105 H 05/06/23 11:56 107 H 116/75 05/06/23 11:51 100 05/06/23 11:51 102 H 05/06/23 11:51 107 H 115/77 05/06/23 11:46 100 05/06/23 11:46 103 H 05/06/23 11:46 100 H 120/80 05/06/23 11:41 105 H 118/78 100 05/06/23 11:36 103 H 121/81 100 05/06/23 11:31 100 05/06/23 11:31 103 H 05/06/23 11:31 102 H 114/79 05/06/23 11:26 100 05/06/23 11:26 99 H 05/06/23 11:26 104 H 119/76 05/06/23 11:21 100 05/06/23 11:21 105 H 05/06/23 11:21 104 H 110/71 05/06/23 11:16 100 05/06/23 11:16 104 H 05/06/23 11:16 104 H 114/75 05/06/23 11:11 104 H 121/78 100 05/06/23 11:06 107 H 122/81 100 05/06/23 11:01 104 H 130/85 100 05/06/23 10:56 100 05/06/23 10:56 112 H 05/06/23 10:56 114 H 103/78 05/06/23 10:51 108 H 154/76 H 100 05/06/23 10:46 106 H 100 05/06/23 10:41 114 H 130/67 99 05/06/23 10:39 110 H 127/73 05/06/23 10:36 113 H 96 05/06/23 10:37 116 H 90 05/06/23 10:31 104 H 106/68 99 05/06/23 10:28 108 H 92 05/06/23 10:26 106 H 103/70 100 05/06/23 10:21 99 05/06/23 10:21 108 H 05/06/23 10:21 105 H 110/70 05/06/23 10:16 100 05/06/23 10:16 116 H 05/06/23 10:16 116 H 140/76 05/06/23 10:11 100 05/06/23 10:11 119 H 05/06/23 10:11 115 H 92/64 L 05/06/23 10:06 99 05/06/23 10:06 106 H 05/06/23 10:06 108 H 97/65 L 05/06/23 10:01 100 05/06/23 10:01 113 H 05/06/23 10:01 110 H 91/63 L 05/06/23 09:56 113 H 88/58 L 100 05/06/23 09:51 112 H 87/55 L 99 05/06/23 09:46 99 05/06/23 09:46 112 H 05/06/23 09:46 113 H 87/55 L 05/06/23 09:41 100 05/06/23 09:41 110 H 05/06/23 09:41 116 H 86/52 L 05/06/23 09:36 99 05/06/23 09:36 114 H 05/06/23 09:36 114 H 84/50 L 05/06/23 09:31 98 05/06/23 09:31 114 H 05/06/23 09:31 112 H 86/53 L 05/06/23 09:26 114 H 86/51 L 99 05/06/23 09:21 114 H 85/57 L 98 05/06/23 09:16 99 05/06/23 09:16 114 H 05/06/23 09:16 114 H 88/57 L 05/06/23 09:11 100 05/06/23 09:11 112 H 05/06/23 09:11 112 H 88/56 L 05/06/23 09:06 100 05/06/23 09:06 110 H 05/06/23 09:06 112 H 86/56 L 05/06/23 09:01 100 05/06/23 09:01 109 H 05/06/23 09:01 113 H 86/54 L 05/06/23 08:56 100 05/06/23 08:56 109 H 05/06/23 08:56 110 H 87/60 L 05/06/23 08:51 111 H 90/59 L 100 05/06/23 08:46 100 05/06/23 08:46 116 H 05/06/23 08:46 114 H 88/58 L 05/06/23 08:41 100 05/06/23 08:41 112 H 05/06/23 08:41 111 H 95/65 L 05/06/23 08:36 100 05/06/23 08:36 110 H 05/06/23 08:36 110 H 92/61 L 05/06/23 08:31 100 05/06/23 08:31 112 H 05/06/23 08:31 111 H 89/60 L 05/06/23 08:26 111 H 92/64 L 100 05/06/23 08:21 109 H 95/69 L 100 05/06/23 08:16 107 H 95/68 L 100 05/06/23 08:11 100 05/06/23 08:11 108 H 05/06/23 08:11 108 H 89/65 L 05/06/23 08:06 100 05/06/23 08:06 111 H 05/06/23 08:06 108 H 87/57 L 05/06/23 08:03 109 H 93 05/06/23 08:01 100 05/06/23 08:01 111 H 05/06/23 08:01 110 H 85/52 L 05/06/23 07:56 110 H 86/53 L 95 05/06/23 07:57 114 H 85/53 L 05/06/23 07:51 110 H 101/75 100 05/06/23 07:46 110 H 102/74 100 05/06/23 07:41 100 05/06/23 07:41 113 H 05/06/23 07:41 110 H 103/70 05/06/23 07:36 100 05/06/23 07:36 103 H 05/06/23 07:36 104 H 106/77 05/06/23 07:31 100 05/06/23 07:31 103 H 05/06/23 07:31 103 H 104/72 05/06/23 07:26 100 05/06/23 07:26 106 H 05/06/23 07:26 108 H 106/71 05/06/23 07:21 100 05/06/23 07:21 103 H 05/06/23 07:21 105 H 105/73 05/06/23 07:16 101 H 109/75 100 05/06/23 07:14 107 H 106/74 05/06/23 07:11 111 H 114/81 100 05/06/23 07:09 104 H 112/79 05/06/23 07:06 105 H 100 05/06/23 07:01 110 H 100 05/06/23 06:56 100 05/06/23 06:56 103 H 05/06/23 06:56 106 H 113/79 05/06/23 06:51 100 05/06/23 06:51 106 H 05/06/23 06:51 108 H 110/74 05/06/23 06:46 104 H 112/73 100 05/06/23 06:41 101 H 111/71 100 05/06/23 06:36 101 H 100 05/06/23 06:37 100 H 116/73 05/06/23 06:31 100 05/06/23 06:31 102 H 05/06/23 06:31 99 H 108/66 Laboratory Results Laboratory Results WBC 18.71 K/ul (4.8-10.8) H 05/06/23 14:12 RBC 3.61 M/uL (4.20-5.40) L 05/06/23 14:12 Hgb 10.9 g/dl (12.0-16.0) L 05/06/23 14:12 Hct 31.6 % (37.0-47.0) L 05/06/23 14:12 MCV 87.5 fL (80.0-100.0) 05/06/23 14:12 MCH 30.2 pg (25.0-34.0) 05/06/23 14:12 MCHC 34.5 g/dL (32.0-36.0) 05/06/23 14:12 RDW Std Deviation 44.7 fL (36.4-46.3) 05/06/23 14:12 RDW Coeff of Alex 14.3 % (11.5-14.5) 05/06/23 14:12 Plt Count 71 K/uL (130-400) L 05/06/23 14:12 MPV 12.4 fL (9.4-12.4) 05/06/23 14:12 Immature Gran % (Auto) 0.8 % 05/06/23 14:12 Neut % (Auto) 81.2 % 05/06/23 14:12 Lymph % (Auto) 12.8 % 05/06/23 14:12 Pratt % (Auto) 5.0 % 05/06/23 14:12 Eos % (Auto) 0.1 % 05/06/23 14:12 Baso % (Auto) 0.1 % 05/06/23 14:12 Neut # (Auto) 15.19 K/uL (1.40-6.50) H 05/06/23 14:12 Lymph # (Auto) 2.40 K/uL (1.2-3.4) 05/06/23 14:12 Pratt # (Auto) 0.94 K/uL (0.11-0.59) H 05/06/23 14:12 Eos # (Auto) 0.01 K/uL (0-0.50) 05/06/23 14:12 Baso # (Auto) 0.02 K/uL (0-0.2) 05/06/23 14:12 Immature Gran # (Auto) 0.15 K/uL (0.01-0.20) 05/06/23 14:12 Platelet Estimate Decreased (Normal) L 05/05/23 14:34 Fibrinogen 342 mg/dl (184-400) 05/06/23 08:03 Sodium 129 mmol/L (136-145) L 05/06/23 14:12 Potassium 4.3 mmol/L (3.5-5.1) 05/06/23 14:12 Chloride 102 mmol/L (98-107) 05/06/23 14:12 Carbon Dioxide 22 mmol/L (21-32) 05/06/23 14:12 Anion Gap 5 (3-11) 05/06/23 14:12 BUN 6 mg/dl (6-23) 05/06/23 14:12 Creatinine 0.63 mg/dl (0.6-1.2) 05/06/23 14:12 Est Cr Clr Drug Dosing 128.0 ml/min 05/06/23 14:12 Est GFR ( Amer) 136.6 ml/min 05/06/23 14:12 Est GFR (Non-Af Amer) 117.9 ml/min 05/06/23 14:12 BUN/Creatinine Ratio 9.5 (10-20) L 05/06/23 14:12 Glucose 137 mg/dl (70-99(Fasting)) H 05/06/23 14:12 Uric Acid 5.0 mg/dl (2.6-7.2) 05/05/23 14:34 Calcium 5.7 mg/dl (8.6-10.3) L* 05/06/23 14:12 Ionized Calcium 0.85 mmol/L (1.12-1.32) L 05/06/23 15:06 Magnesium (Sulf Ther) 5.5 mg/dL (4.0-8.0) 05/06/23 14:12 Total Bilirubin 0.7 mg/dl (0.2-1.0) 05/06/23 14:12 Direct Bilirubin 0.2 mg/dl (0-0.2) 05/05/23 14:34 AST 96 U/L (13-39) H 05/06/23 14:12 ALT 46 U/L (7-52) 05/06/23 14:12 Alkaline Phosphatase 159 U/L (34-104) H 05/06/23 14:12 Lactate Dehydrogenase 434 U/L (86-244) H 05/06/23 08:03 Total Protein 4.2 gm/dl (6.0-8.3) L 05/06/23 14:12 Albumin 2.2 gm/dl (3.4-5.0) L 05/06/23 14:12 Globulin 2.0 gm/dl (2.5-4.0) L 05/06/23 14:12 Albumin/Globulin Ratio 1.1 (0.9-2) 05/06/23 14:12 Urine Color Dark Yellow 05/05/23 14:00 Urine Appearance Cloudy (Clear) A 05/05/23 14:00 Urine pH 6.5 (4.5-7.5) 05/05/23 14:00 Ur Specific [place] 1.018 (1.000-1.030) 05/05/23 14:00 Urine Protein 2+ (Negative) H 05/05/23 14:00 Urine Glucose (UA) Negative (Negative) 05/05/23 14:00 Urine Ketones Negative (Negative) 05/05/23 14:00 Urine Blood 1+ (Negative) H 05/05/23 14:00 Urine Nitrite Negative (Negative) 05/05/23 14:00 Urine Bilirubin Negative (Negative) 05/05/23 14:00 Urine Urobilinogen Negative (Negative) 05/05/23 14:00 Ur Leukocyte Esterase Trace (Negative) H 05/05/23 14:00 Urine WBC (Auto) 10-30 /hpf (0-5) H 05/05/23 14:00 Urine RBC (Auto) 5-10 /hpf (0-4) H 05/05/23 14:00 U Hyaline Cast (Auto) 1-5 /lpf (0-5) 05/05/23 14:00 U Epithel Cells (Auto) >30 /lpf (0-5) H 05/05/23 14:00 Urine Bacteria (Auto) 2+ (Negative) H 05/05/23 14:00 Ur Random Creatinine 126.0 mg/dl 05/05/23 14:00 U Random Total Protein 91.9 mg/dl (0-11.9) H 05/05/23 14:00 Protein/Creatinin Ratio 0.7 (0-0.2) H 05/05/23 14:00 Urine Opiates Screen Neg (Neg) 05/05/23 14:00 Ur Methadone, Qual Neg (Neg) 05/05/23 14:00 Urine Barbiturates Neg (Neg) 05/05/23 14:00 Ur Phencyclidine (PCP) Neg (Neg) 05/05/23 14:00 U Amphetamin/Meth Scrn Pos (Neg) H 05/05/23 14:00 MDMA (Ecstasy) Screen Neg (Neg) 05/05/23 14:00 U Benzodiazepines Scrn Neg (Neg) 05/05/23 14:00 Ur Cocaine Metabolite Neg (Neg) 05/05/23 14:00 U Marijuana (THC) Screen Neg (Neg) 05/05/23 14:00 RPR Nonreactive (Nonreactive) 05/05/23 14:34 Rubella IgG Antibody Immune (Immune) 05/05/23 14:34 Rubella IgG Ab Index 25.1 IU/mL 05/05/23 14:34 SARS-CoV-2, RNA, NAAT NEGATIVE (NEGATIVE) 05/05/23 Unknown Blood Type O Positive 05/05/23 14:34 Blood Type Recheck O Positive 05/05/23 16:07 Antibody Screen NEGATIVE 05/05/23 14:34 Crossmatch See Detail 05/05/23 14:34
[2023-05-06 20:29] LABS: Basophils # (auto) 0.03 K/uL (0-0.2); Basophils % (auto) 0.2 %; Eosinophils # (auto) 0.04 K/uL (0-0.50); Eosinophils % (auto) 0.2 %; Hematocrit (blood only) 28.3 % (37.0-47.0); Hemoglobin 9.7 g/dl (12.0-16.0); Immature Granulocytes # (auto) 0.13 K/uL (0.01-0.20); Immature Granulocytes % (auto) 0.7 %; Lymphocytes # (auto) 3.51 K/uL (1.2-3.4); Lymphocytes % (auto) 18.9 %; Mean Corpuscular Hgb Conc 34.3 g/dL (32.0-36.0); Mean Corpuscular Volume 87.6 fL (80.0-100.0); Monocytes # (auto) 1.19 K/uL (0.11-0.59); Monocytes % (auto) 6.4 %; Neutrophils # (auto) 13.67 K/uL (1.40-6.50); Neutrophils % (auto) 73.6 %; Platelet Count 78 K/uL (130-400); RDW Coefficient of Variation 13.8 % (11.5-14.5); RDW Standard Deviation 43.7 fL (36.4-46.3); Red Blood Count 3.23 M/uL (4.20-5.40); White Blood Count 18.57 K/ul (4.8-10.8)
[2023-05-06 20:50] LABS: Albumin Globulin Ratio 1.1 (0.9-2); Albumin Level 2.1 gm/dl (3.4-5.0); BUN Creatinine Ratio 7.6 (10-20); Bilirubin,Total 0.4 mg/dl (0.2-1.0); Calcium 5.8 mg/dl (8.6-10.3); Creatinine Clr Calc Pharmacy 122.2 ml/min; Est GFR (African American) 134.5 ml/min; Est GFR (Non-African American) 116.1 ml/min; Potassium 3.6 mmol/L (3.5-5.1); Total Protein 4.1 gm/dl (6.0-8.3)
[2023-05-06] MEDS ORDERED: Nursing to Pharmacy Communication SCH (21:15)
[2023-05-06] MEDS: NICOTINE 14 MG/24 HR PATCH TD SCH (21:18)
[2023-05-07 02:19] LABS: Basophils # (auto) 0.05 K/uL (0-0.2); Basophils % (auto) 0.3 %; Eosinophils # (auto) 0.08 K/uL (0-0.50); Eosinophils % (auto) 0.4 %; Hematocrit (blood only) 26.1 % (37.0-47.0); Hemoglobin 9.1 g/dl (12.0-16.0); Immature Granulocytes # (auto) 0.18 K/uL (0.01-0.20); Lymphocytes # (auto) 3.61 K/uL (1.2-3.4); Lymphocytes % (auto) 19.6 %; Mean Corpuscular Hemoglobin 30.4 pg (25.0-34.0); Mean Corpuscular Hgb Conc 34.9 g/dL (32.0-36.0); Mean Corpuscular Volume 87.3 fL (80.0-100.0); Mean Platelet Volume 12.3 fL (9.4-12.4); Monocytes # (auto) 1.19 K/uL (0.11-0.59); Monocytes % (auto) 6.5 %; Neutrophils # (auto) 13.33 K/uL (1.40-6.50); Neutrophils % (auto) 72.2 %; Platelet Count 76 K/uL (130-400); RDW Coefficient of Variation 13.9 % (11.5-14.5); RDW Standard Deviation 42.8 fL (36.4-46.3); Red Blood Count 2.99 M/uL (4.20-5.40); White Blood Count 18.44 K/ul (4.8-10.8)
[2023-05-07] MEDS: IBUPROFEN 600 MG TAB PO PRN ×4 (02:38→22:28)
[2023-05-07 02:39] LABS: Albumin Globulin Ratio 1.2 (0.9-2); Albumin Level 2.2 gm/dl (3.4-5.0); BUN Creatinine Ratio 6.5 (10-20); Bilirubin,Total 0.3 mg/dl (0.2-1.0); Calcium 5.8 mg/dl (8.6-10.3); Creatinine Clr Calc Pharmacy 130.1 ml/min; Est GFR (African American) 137.3 ml/min; Est GFR (Non-African American) 118.5 ml/min; Globulin 1.9 gm/dl (2.5-4.0); Magnesium Therapeutic L&D Only 4.7 mg/dL (4.0-8.0); Potassium 3.9 mmol/L (3.5-5.1); Total Protein 4.1 gm/dl (6.0-8.3)
[2023-05-07] MEDS ORDERED: SODIUM CHLORIDE 0.9% 250 ML IV PRN (04:45)
[2023-05-07 06:57] LABS: Basophils # (auto) 0.04 K/uL (0-0.2); Basophils % (auto) 0.2 %; Eosinophils # (auto) 0.08 K/uL (0-0.50); Eosinophils % (auto) 0.5 %; Immature Granulocytes # (auto) 0.15 K/uL (0.01-0.20); Immature Granulocytes % (auto) 0.9 %; Lymphocytes # (auto) 3.83 K/uL (1.2-3.4); Lymphocytes % (auto) 21.7 %; Mean Corpuscular Hemoglobin 30.3 pg (25.0-34.0); Mean Corpuscular Hgb Conc 34.8 g/dL (32.0-36.0); Mean Corpuscular Volume 87.1 fL (80.0-100.0); Mean Platelet Volume 12.6 fL (9.4-12.4); Monocytes # (auto) 1.14 K/uL (0.11-0.59); Monocytes % (auto) 6.5 %; Neutrophils # (auto) 12.38 K/uL (1.40-6.50); Neutrophils % (auto) 70.2 %; Platelet Count 87 K/uL (130-400); RDW Coefficient of Variation 14.2 % (11.5-14.5); RDW Standard Deviation 43.6 fL (36.4-46.3); Red Blood Count 2.64 M/uL (4.20-5.40); White Blood Count 17.62 K/ul (4.8-10.8)
[2023-05-07 07:18] LABS: Albumin Globulin Ratio 1.1 (0.9-2); BUN Creatinine Ratio 4.6 (10-20); Bilirubin,Total 0.2 mg/dl (0.2-1.0); Calcium 6.3 mg/dl (8.6-10.3); Creatinine Clr Calc Pharmacy 124.1 ml/min; Est GFR (African American) 135.2 ml/min; Est GFR (Non-African American) 116.7 ml/min; Globulin 1.9 gm/dl (2.5-4.0); Potassium 3.8 mmol/L (3.5-5.1); Total Protein 3.9 gm/dl (6.0-8.3)
[2023-05-07] MEDS: PRENATAL VITAMIN 1 TAB PO SCH (08:01)
[2023-05-07] MEDS: DOCUSATE SODIUM 100 MG CAP PO SCH ×2 (08:01→20:46)
[2023-05-07] MEDS: CALCITRIOL 0.25 MCG CAPSULE PO SCH (08:36)
[2023-05-07] MEDS: buprenorphine HCL 8 MG SUBL SL SCH ×2 (08:36→20:46)
[2023-05-07] MEDS: NICOTINE 14 MG/24 HR PATCH TD SCH (09:09)
--- NOTE | 2023-05-07 09:20 | Obstetrical Progress Note ---
Date of Service May 07, 2023 Subjective Ambulation: ambulating normally Voiding: no voiding problems Passing Gas:: Yes Diet Tolerance:: regular diet Lochia:: Small Feeding Type:: breast feeding Current Pain Level(1-10): 0 doing well Physical Exam Constitutional WD/WN, vitals as above Gastrointestinal (Abdomen) Inspection/Auscultation: abdomen normal to inspection abdomen soft and non-tender fundus firm below U Musculoskeletal Extremities: extremities normal to inspection decreasing edema Skin no rashes, warm and dry Neurologic patellar DTR's 2+ bilat, sensation intact Psychiatric A+Ox3, euthymic affect Results & Data Vital Signs (Past 12 Hours) Vital Signs Temp Pulse Pulse Resp BP BP Pulse Ox 05/07/23 04:00 05/07/23 04:00 37 C 122 H 24 131/74 99 05/07/23 04:00 37 C 122 H 24 131/74 99 05/07/23 04:00 05/07/23 01:35 122 H 20 97 05/07/23 01:35 20 05/07/23 00:34 126 H 16 99 05/06/23 23:48 37.7 C H 110 H 16 130/80 99 05/06/23 23:30 05/06/23 22:31 105 H 16 97 05/06/23 22:31 16 05/06/23 21:30 103 H 16 05/06/23 21:30 16 05/07/23 03:28 122 H 131/74 05/07/23 03:01 112 H 97 05/07/23 02:57 111 H 125/71 05/07/23 02:56 111 H 98 05/07/23 02:51 110 H 98 05/07/23 02:46 109 H 98 05/07/23 02:41 104 H 99 05/07/23 02:36 115 H 99 05/07/23 02:31 110 H 99 05/07/23 02:26 113 H 99 05/07/23 02:21 119 H 99 05/07/23 02:16 109 H 100 05/07/23 02:11 116 H 100 05/07/23 02:06 113 H 99 05/07/23 02:01 106 H 98 05/07/23 01:57 102 H 134/78 05/07/23 01:56 108 H 100 05/07/23 01:51 105 H 100 05/07/23 01:46 108 H 100 05/07/23 01:41 119 H 100 05/07/23 01:36 119 H 100 05/07/23 01:31 123 H 97 05/07/23 01:26 120 H 98 05/07/23 01:21 115 H 99 05/07/23 01:16 118 H 99 05/07/23 01:11 111 H 99 05/07/23 01:06 117 H 99 05/07/23 01:01 113 H 99 05/07/23 00:56 122 H 98 05/07/23 00:57 113 H 124/82 05/07/23 00:51 113 H 98 05/07/23 00:46 110 H 98 05/07/23 00:41 118 H 99 05/07/23 00:36 119 H 99 05/07/23 00:31 120 H 99 05/07/23 00:26 110 H 98 05/07/23 00:21 116 H 99 05/07/23 00:16 117 H 99 05/07/23 00:11 110 H 99 05/07/23 00:06 120 H 98 05/07/23 00:01 120 H 99 05/06/23 23:56 118 H 98 05/06/23 23:57 112 H 137/81 05/06/23 23:51 117 H 99 05/06/23 23:46 120 H 99 05/06/23 23:41 119 H 98 05/06/23 23:36 99 05/06/23 23:36 108 H 05/06/23 23:36 122 H 91 05/06/23 23:31 114 H 97 05/06/23 23:32 110 H 130/80 06 23:26 107 H 97 06 23:21 109 H 96 05/06/23 23:16 109 H 96 05/06/23 23:11 108 H 96 06 23:06 108 H 97 06 23:01 109 H 96 05/06/23 22:56 109 H 97 05/06/23 22:57 109 H 132/78 06 22:51 109 H 97 05/06/23 22:46 105 H 98 06 22:41 105 H 98 05/06/23 22:36 102 H 97 06/21/23 22:31 105 H 97 05/06/23 22:26 111 H 97 05/06/23 22:21 108 H 97 05/06/23 22:16 108 H 97 05/06/23 22:11 104 H 97 05/06/23 22:06 105 H 97 05/06/23 22:01 105 H 97 05/06/23 21:56 99 H 98 05/06/23 21:57 100 H 134/86 05/06/23 21:51 100 H 98 05/06/23 21:46 98 H 98 05/06/23 21:41 103 H 98 05/06/23 21:36 103 H 99 05/06/23 21:31 115 H 99 05/06/23 21:26 129 H 100 05/06/23 21:21 115 H 99 O2 Del Method 05/07/23 04:00 Room Air 05/07/23 04:00 Room Air 05/07/23 04:00 05/07/23 04:00 Room Air 05/07/23 01:35 05/07/23 01:35 05/07/23 00:34 05/06/23 23:48 05/06/23 23:30 Room Air 05/06/23 22:31 05/06/23 22:31 05/06/23 21:30 05/06/23 21:30 05/07/23 03:28 05/07/23 03:01 05/07/23 02:57 05/07/23 02:56 05/07/23 02:51 05/07/23 02:46 05/07/23 02:41 05/07/23 02:36 05/07/23 02:31 05/07/23 02:26 05/07/23 02:21 05/07/23 02:16 05/07/23 02:11 05/07/23 02:06 05/07/23 02:01 05/07/23 01:57 05/07/23 01:56 05/07/23 01:51 05/07/23 01:46 05/07/23 01:41 05/07/23 01:36 05/07/23 01:31 05/07/23 01:26 05/07/23 01:21 05/07/23 01:16 05/07/23 01:11 05/07/23 01:06 05/07/23 01:01 05/07/23 00:56 05/07/23 00:57 05/07/23 00:51 05/07/23 00:46 05/07/23 00:41 05/07/23 00:36 05/07/23 00:31 05/07/23 00:26 05/07/23 00:21 05/07/23 00:16 05/07/23 00:11 05/07/23 00:06 05/07/23 00:01 05/06/23 23:56 05/06/23 23:57 05/06/23 23:51 05/06/23 23:46 05/06/23 23:41 05/06/23 23:36 05/06/23 23:36 05/06/23 23:36 05/06/23 23:31 05/06/23 23:32 05/06/23 23:26 05/06/23 23:21 05/06/23 23:16 05/06/23 23:11 05/06/23 23:06 05/06/23 23:01 05/06/23 22:56 05/06/23 22:57 05/06/23 22:51 05/06/23 22:46 05/06/23 22:41 05/06/23 22:36 05/06/23 22:31 05/06/23 22:26 05/06/23 22:21 05/06/23 22:16 05/06/23 22:11 05/06/23 22:06 05/06/23 22:01 05/06/23 21:56 05/06/23 21:57 05/06/23 21:51 05/06/23 21:46 05/06/23 21:41 05/06/23 21:36 05/06/23 21:31 05/06/23 21:26 05/06/23 21:21 Laboratory Results 05/05/23 05/05/23 05/05/23 14:00 14:00 14:00 WBC RBC Hgb Hct MCV MCH MCHC RDW Std Deviation RDW Coeff of Alex Plt Count MPV Immature Gran % (Auto) Neut % (Auto) Lymph % (Auto) [place] % (Auto) Eos % (Auto) Baso % (Auto) Neut # (Auto) Lymph # (Auto) [place] # (Auto) Eos # (Auto) Baso # (Auto) Immature Gran # (Auto) Platelet Estimate Fibrinogen Sodium Potassium Chloride Carbon Dioxide Anion Gap BUN Creatinine Est Cr Clr Drug Dosing Est GFR ( Amer) Est GFR (Non-Af Amer) BUN/Creatinine Ratio Glucose Uric Acid Calcium Ionized Calcium Magnesium (Sulf Ther) Total Bilirubin Direct Bilirubin AST ALT Alkaline Phosphatase Lactate Dehydrogenase Total Protein Albumin Globulin Albumin/Globulin Ratio Urine Color Dark Yellow Urine Appearance Cloudy A Urine pH 6.5 Ur Specific [place] 1.018 Urine Protein 2+ H Urine Glucose (UA) Negative Urine Ketones Negative Urine Blood 1+ H Urine Nitrite Negative Urine Bilirubin Negative Urine Urobilinogen Negative Ur Leukocyte Esterase Trace H Urine WBC (Auto) 10-30 H Urine RBC (Auto) 5-10 H U Hyaline Cast (Auto) 1-5 U Epithel Cells (Auto) >30 H Urine Bacteria (Auto) 2+ H Ur Random Creatinine 126.0 U Random Total Protein 91.9 H Protein/Creatinin Ratio 0.7 H Urine Opiates Screen Neg Ur Methadone, Qual Neg Urine Barbiturates Neg Ur Phencyclidine (PCP) Neg U Amphetamin/Meth Scrn Pos H MDMA (Ecstasy) Screen Neg U Benzodiazepines Scrn Neg Ur Cocaine Metabolite Neg U Marijuana (THC) Screen Neg RPR HIV (1&2) Ag & Ab Conf Rubella IgG Antibody Rubella IgG Ab Index SARS-CoV-2, RNA, NAAT Blood Type Blood Type Recheck Antibody Screen Crossmatch 05/05/23 05/05/23 05/05/23 14:34 14:34 14:34 WBC RBC Hgb Hct MCV MCH MCHC RDW Std Deviation RDW Coeff of Alex Plt Count MPV Immature Gran % (Auto) Neut % (Auto) Lymph % (Auto) [place] % (Auto) Eos % (Auto) Baso % (Auto) Neut # (Auto) Lymph # (Auto) [place] # (Auto) Eos # (Auto) Baso # (Auto) Immature Gran # (Auto) Platelet Estimate Fibrinogen Sodium Potassium Chloride Carbon Dioxide Anion Gap BUN Creatinine Est Cr Clr Drug Dosing Est GFR ( Amer) Est GFR (Non-Af Amer) BUN/Creatinine Ratio Glucose Uric Acid Calcium Ionized Calcium Magnesium (Sulf Ther) Total Bilirubin Direct Bilirubin AST ALT Alkaline Phosphatase Lactate Dehydrogenase Total Protein Albumin Globulin Albumin/Globulin Ratio Urine Color Urine Appearance Urine pH Ur Specific [place] Urine Protein Urine Glucose (UA) Urine Ketones Urine Blood Urine Nitrite Urine Bilirubin Urine Urobilinogen Ur Leukocyte Esterase Urine WBC (Auto) Urine RBC (Auto) U Hyaline Cast (Auto) U Epithel Cells (Auto) Urine Bacteria (Auto) Ur Random Creatinine U Random Total Protein Protein/Creatinin Ratio Urine Opiates Screen Ur Methadone, Qual Urine Barbiturates Ur Phencyclidine (PCP) U Amphetamin/Meth Scrn MDMA (Ecstasy) Screen U Benzodiazepines Scrn Ur Cocaine Metabolite U Marijuana (THC) Screen RPR Nonreactive HIV (1&2) Ag & Ab Conf Rubella IgG Antibody Immune Rubella IgG Ab Index 25.1 SARS-CoV-2, RNA, NAAT Blood Type O Positive Blood Type Recheck Antibody Screen NEGATIVE Crossmatch See Detail 05/05/23 05/05/23 05/05/23 14:34 14:34 14:34 WBC 12.50 H RBC 4.64 Hgb 13.5 Hct 40.4 MCV 87.1 MCH 29.1 MCHC 33.4 RDW Std Deviation 41.4 RDW Coeff of Alex 13.3 Plt Count 83 L MPV 13.2 H Immature Gran % (Auto) Neut % (Auto) Lymph % (Auto) [place] % (Auto) Eos % (Auto) Baso % (Auto) Neut # (Auto) Lymph # (Auto) [place] # (Auto) Eos # (Auto) Baso # (Auto) Immature Gran # (Auto) Platelet Estimate Decreased L Fibrinogen Sodium 133 L Potassium 3.7 Chloride 104 Carbon Dioxide 26 Anion Gap 3 BUN 7 Creatinine 0.63 Est Cr Clr Drug Dosing 128.0 Est GFR ( Amer) 136.6 Est GFR (Non-Af Amer) 117.9 BUN/Creatinine Ratio 11.1 Glucose 97 Uric Acid 5.0 Calcium 8.1 L Ionized Calcium Magnesium (Sulf Ther) Total Bilirubin 0.5 Direct Bilirubin 0.2 AST 31 ALT 21 Alkaline Phosphatase 237 H Lactate Dehydrogenase Total Protein 5.6 L Albumin 2.9 L Globulin 2.7 Albumin/Globulin Ratio 1.1 Urine Color Urine Appearance Urine pH Ur Specific [place] Urine Protein Urine Glucose (UA) Urine Ketones Urine Blood Urine Nitrite Urine Bilirubin Urine Urobilinogen Ur Leukocyte Esterase Urine WBC (Auto) Urine RBC (Auto) U Hyaline Cast (Auto) U Epithel Cells (Auto) Urine Bacteria (Auto) Ur Random Creatinine U Random Total Protein Protein/Creatinin Ratio Urine Opiates Screen Ur Methadone, Qual Urine Barbiturates Ur Phencyclidine (PCP) U Amphetamin/Meth Scrn MDMA (Ecstasy) Screen U Benzodiazepines Scrn Ur Cocaine Metabolite U Marijuana (THC) Screen RPR HIV (1&2) Ag & Ab Conf NON-REACTIVE Rubella IgG Antibody Rubella IgG Ab Index SARS-CoV-2, RNA, NAAT Blood Type Blood Type Recheck Antibody Screen Crossmatch 05/05/23 05/05/23 05/05/23 14:34 16:07 19:58 WBC RBC Hgb Hct MCV MCH MCHC RDW Std Deviation RDW Coeff of Alex Plt Count 77 L MPV Immature Gran % (Auto) Neut % (Auto) Lymph % (Auto) [place] % (Auto) Eos % (Auto) Baso % (Auto) Neut # (Auto) Lymph # (Auto) [place] # (Auto) Eos # (Auto) Baso # (Auto) Immature Gran # (Auto) Platelet Estimate Fibrinogen Sodium Potassium Chloride Carbon Dioxide Anion Gap BUN Creatinine Est Cr Clr Drug Dosing Est GFR ( Amer) Est GFR (Non-Af Amer) BUN/Creatinine Ratio Glucose Uric Acid Calcium Ionized Calcium Magnesium (Sulf Ther) Total Bilirubin Direct Bilirubin AST ALT Alkaline Phosphatase Lactate Dehydrogenase 222 Total Protein Albumin Globulin Albumin/Globulin Ratio Urine Color Urine Appearance Urine pH Ur Specific [place] Urine Protein Urine Glucose (UA) Urine Ketones Urine Blood Urine Nitrite Urine Bilirubin Urine Urobilinogen Ur Leukocyte Esterase Urine WBC (Auto) Urine RBC (Auto) U Hyaline Cast (Auto) U Epithel Cells (Auto) Urine Bacteria (Auto) Ur Random Creatinine U Random Total Protein Protein/Creatinin Ratio Urine Opiates Screen Ur Methadone, Qual Urine Barbiturates Ur Phencyclidine (PCP) U Amphetamin/Meth Scrn MDMA (Ecstasy) Screen U Benzodiazepines Scrn Ur Cocaine Metabolite U Marijuana (THC) Screen RPR HIV (1&2) Ag & Ab Conf Rubella IgG Antibody Rubella IgG Ab Index SARS-CoV-2, RNA, NAAT Blood Type Blood Type Recheck O Positive Antibody Screen Crossmatch 05/05/23 05/05/23 05/06/23 23:25 Unknown 06:59 WBC 22.65 H D RBC 2.97 L Hgb 8.7 L D Hct 26.0 L MCV 87.5 MCH 29.3 MCHC 33.5 RDW Std Deviation 42.7 RDW Coeff of Alex 13.6 Plt Count 78 L MPV 12.9 H Immature Gran % (Auto) 1.2 Neut % (Auto) 87.0 Lymph % (Auto) 6.8 [place] % (Auto) 4.8 Eos % (Auto) 0.0 Baso % (Auto) 0.2 Neut # (Auto) 19.70 H Lymph # (Auto) 1.54 [place] # (Auto) 1.08 H Eos # (Auto) 0.01 Baso # (Auto) 0.04 Immature Gran # (Auto) 0.28 H Platelet Estimate Fibrinogen Sodium Potassium Chloride Carbon Dioxide Anion Gap BUN Creatinine Est Cr Clr Drug Dosing Est GFR ( Amer) Est GFR (Non-Af Amer) BUN/Creatinine Ratio Glucose Uric Acid Calcium Ionized Calcium Magnesium (Sulf Ther) 4.4 Total Bilirubin Direct Bilirubin AST ALT Alkaline Phosphatase Lactate Dehydrogenase Total Protein Albumin Globulin Albumin/Globulin Ratio Urine Color Urine Appearance Urine pH Ur Specific [place] Urine Protein Urine Glucose (UA) Urine Ketones Urine Blood Urine Nitrite Urine Bilirubin Urine Urobilinogen Ur Leukocyte Esterase Urine WBC (Auto) Urine RBC (Auto) U Hyaline Cast (Auto) U Epithel Cells (Auto) Urine Bacteria (Auto) Ur Random Creatinine U Random Total Protein Protein/Creatinin Ratio Urine Opiates Screen Ur Methadone, Qual Urine Barbiturates Ur Phencyclidine (PCP) U Amphetamin/Meth Scrn MDMA (Ecstasy) Screen U Benzodiazepines Scrn Ur Cocaine Metabolite U Marijuana (THC) Screen RPR HIV (1&2) Ag & Ab Conf Rubella IgG Antibody Rubella IgG Ab Index SARS-CoV-2, RNA, NAAT NEGATIVE Blood Type Blood Type Recheck Antibody Screen Crossmatch 05/06/23 05/06/23 05/06/23 08:03 08:03 08:03 WBC RBC Hgb Hct MCV MCH MCHC RDW Std Deviation RDW Coeff of Alex Plt Count MPV Immature Gran % (Auto) Neut % (Auto) Lymph % (Auto) [place] % (Auto) Eos % (Auto) Baso % (Auto) Neut # (Auto) Lymph # (Auto) [place] # (Auto) Eos # (Auto) Baso # (Auto) Immature Gran # (Auto) Platelet Estimate Fibrinogen 342 Sodium 129 L Potassium 4.3 Chloride 104 Carbon Dioxide 22 Anion Gap 3 BUN 6 Creatinine 0.66 Est Cr Clr Drug Dosing 122.2 Est GFR ( Amer) 134.5 Est GFR (Non-Af Amer) 116.1 BUN/Creatinine Ratio 9.1 L Glucose 193 H Uric Acid Calcium 6.2 L Ionized Calcium Magnesium (Sulf Ther) Total Bilirubin 0.5 Direct Bilirubin AST 43 H ALT 21 Alkaline Phosphatase 172 H Lactate Dehydrogenase 434 H Total Protein 4.0 L D Albumin 2.1 L Globulin 1.9 L Albumin/Globulin Ratio 1.1 Urine Color Urine Appearance Urine pH Ur Specific [place] Urine Protein Urine Glucose (UA) Urine Ketones Urine Blood Urine Nitrite Urine Bilirubin Urine Urobilinogen Ur Leukocyte Esterase Urine WBC (Auto) Urine RBC (Auto) U Hyaline Cast (Auto) U Epithel Cells (Auto) Urine Bacteria (Auto) Ur Random Creatinine U Random Total Protein Protein/Creatinin Ratio Urine Opiates Screen Ur Methadone, Qual Urine Barbiturates Ur Phencyclidine (PCP) U Amphetamin/Meth Scrn MDMA (Ecstasy) Screen U Benzodiazepines Scrn Ur Cocaine Metabolite U Marijuana (THC) Screen RPR HIV (1&2) Ag & Ab Conf Rubella IgG Antibody Rubella IgG Ab Index SARS-CoV-2, RNA, NAAT Blood Type Blood Type Recheck Antibody Screen Crossmatch 05/06/23 05/06/23 05/06/23 14:12 14:12 15:06 WBC 18.71 H RBC 3.61 L Hgb 10.9 L Hct 31.6 L MCV 87.5 MCH 30.2 MCHC 34.5 RDW Std Deviation 44.7 RDW Coeff of Alex 14.3 Plt Count 71 L MPV 12.4 Immature Gran % (Auto) 0.8 Neut % (Auto) 81.2 Lymph % (Auto) 12.8 [place] % (Auto) 5.0 Eos % (Auto) 0.1 Baso % (Auto) 0.1 Neut # (Auto) 15.19 H Lymph # (Auto) 2.40 [place] # (Auto) 0.94 H Eos # (Auto) 0.01 Baso # (Auto) 0.02 Immature Gran # (Auto) 0.15 Platelet Estimate Fibrinogen Sodium 129 L Potassium 4.3 Chloride 102 Carbon Dioxide 22 Anion Gap 5 BUN 6 Creatinine 0.63 Est Cr Clr Drug Dosing 128.0 Est GFR ( Amer) 136.6 Est GFR (Non-Af Amer) 117.9 BUN/Creatinine Ratio 9.5 L Glucose 137 H Uric Acid Calcium 5.7 L* Ionized Calcium 0.85 L Magnesium (Sulf Ther) 5.5 Total Bilirubin 0.7 Direct Bilirubin AST 96 H ALT 46 Alkaline Phosphatase 159 H Lactate Dehydrogenase Total Protein 4.2 L Albumin 2.2 L Globulin 2.0 L Albumin/Globulin Ratio 1.1 Urine Color Urine Appearance Urine pH Ur Specific [place] Urine Protein Urine Glucose (UA) Urine Ketones Urine Blood Urine Nitrite Urine Bilirubin Urine Urobilinogen Ur Leukocyte Esterase Urine WBC (Auto) Urine RBC (Auto) U Hyaline Cast (Auto) U Epithel Cells (Auto) Urine Bacteria (Auto) Ur Random Creatinine U Random Total Protein Protein/Creatinin Ratio Urine Opiates Screen Ur Methadone, Qual Urine Barbiturates Ur Phencyclidine (PCP) U Amphetamin/Meth Scrn MDMA (Ecstasy) Screen U Benzodiazepines Scrn Ur Cocaine Metabolite U Marijuana (THC) Screen RPR HIV (1&2) Ag & Ab Conf Rubella IgG Antibody Rubella IgG Ab Index SARS-CoV-2, RNA, NAAT Blood Type Blood Type Recheck Antibody Screen Crossmatch 05/06/23 05/06/23 05/07/23 20:02 20:02 02:07 WBC 18.57 H 18.44 H RBC 3.23 L 2.99 L Hgb 9.7 L 9.1 L Hct 28.3 L 26.1 L MCV 87.6 87.3 MCH 30.0 30.4 MCHC 34.3 34.9 RDW Std Deviation 43.7 42.8 RDW Coeff of Alex 13.8 13.9 Plt Count 78 L 76 L MPV 13.0 H 12.3 Immature Gran % (Auto) 0.7 1.0 Neut % (Auto) 73.6 72.2 Lymph % (Auto) 18.[address] % (Auto) 6.4 6.5 Eos % (Auto) 0.2 0.4 Baso % (Auto) 0.2 0.3 Neut # (Auto) 13.67 H 13.33 H Lymph # (Auto) 3.[address] # (Auto) 1.19 H 1.19 H Eos # (Auto) 0.04 0.08 Baso # (Auto) 0.03 0.05 Immature Gran # (Auto) 0.13 0.18 Platelet Estimate Fibrinogen Sodium 131 L Potassium 3.6 Chloride 102 Carbon Dioxide 25 Anion Gap 4 BUN 5 L Creatinine 0.66 Est Cr Clr Drug Dosing 122.2 Est GFR ( Amer) 134.5 Est GFR (Non-Af Amer) 116.1 BUN/Creatinine Ratio 7.6 L Glucose 122 H Uric Acid Calcium 5.8 L* Ionized Calcium Magnesium (Sulf Ther) 5.0 Total Bilirubin 0.4 Direct Bilirubin AST 84 H ALT 45 Alkaline Phosphatase 148 H Lactate Dehydrogenase Total Protein 4.1 L Albumin 2.1 L Globulin 2.0 L Albumin/Globulin Ratio 1.1 Urine Color Urine Appearance Urine pH Ur Specific [place] Urine Protein Urine Glucose (UA) Urine Ketones Urine Blood Urine Nitrite Urine Bilirubin Urine Urobilinogen Ur Leukocyte Esterase Urine WBC (Auto) Urine RBC (Auto) U Hyaline Cast (Auto) U Epithel Cells (Auto) Urine Bacteria (Auto) Ur Random Creatinine U Random Total Protein Protein/Creatinin Ratio Urine Opiates Screen Ur Methadone, Qual Urine Barbiturates Ur Phencyclidine (PCP) U Amphetamin/Meth Scrn MDMA (Ecstasy) Screen U Benzodiazepines Scrn Ur Cocaine Metabolite U Marijuana (THC) Screen RPR HIV (1&2) Ag & Ab Conf Rubella IgG Antibody Rubella IgG Ab Index SARS-CoV-2, RNA, NAAT Blood Type Blood Type Recheck Antibody Screen Crossmatch 05/07/23 05/07/23 05/07/23 02:07 06:28 06:28 WBC 17.62 H RBC 2.64 L Hgb 8.0 L Hct 23.0 L MCV 87.1 MCH 30.3 MCHC 34.8 RDW Std Deviation 43.6 RDW Coeff of Alex 14.2 Plt Count 87 L MPV 12.6 H Immature Gran % (Auto) 0.9 Neut % (Auto) 70.2 Lymph % (Auto) 21.7 [place] % (Auto) 6.5 Eos % (Auto) 0.5 Baso % (Auto) 0.2 Neut # (Auto) 12.38 H Lymph # (Auto) 3.[address] # (Auto) 1.14 H Eos # (Auto) 0.08 Baso # (Auto) 0.04 Immature Gran # (Auto) 0.15 Platelet Estimate Fibrinogen Sodium 130 L 130 L Potassium 3.9 3.8 Chloride 104 103 Carbon Dioxide 22 22 Anion Gap 4 5 BUN 4 L 3 L Creatinine 0.62 0.65 Est Cr Clr Drug Dosing 130.1 124.1 Est GFR ( Amer) 137.3 135.2 Est GFR (Non-Af Amer) 118.5 116.7 BUN/Creatinine Ratio 6.5 L 4.6 L Glucose 190 H 196 H Uric Acid Calcium 5.8 L* 6.3 L Ionized Calcium Magnesium (Sulf Ther) 4.7 Total Bilirubin 0.3 0.2 Direct Bilirubin AST 59 H 42 H ALT 42 36 Alkaline Phosphatase 146 H 138 H Lactate Dehydrogenase Total Protein 4.1 L 3.9 L Albumin 2.2 L 2.0 L Globulin 1.9 L 1.9 L Albumin/Globulin Ratio 1.2 1.1 Urine Color Urine Appearance Urine pH Ur Specific [place] Urine Protein Urine Glucose (UA) Urine Ketones Urine Blood Urine Nitrite Urine Bilirubin Urine Urobilinogen Ur Leukocyte Esterase Urine WBC (Auto) Urine RBC (Auto) U Hyaline Cast (Auto) U Epithel Cells (Auto) Urine Bacteria (Auto) Ur Random Creatinine U Random Total Protein Protein/Creatinin Ratio Urine Opiates Screen Ur Methadone, Qual Urine Barbiturates Ur Phencyclidine (PCP) U Amphetamin/Meth Scrn MDMA (Ecstasy) Screen U Benzodiazepines Scrn Ur Cocaine Metabolite U Marijuana (THC) Screen RPR HIV (1&2) Ag & Ab Conf Rubella IgG Antibody Rubella IgG Ab Index SARS-CoV-2, RNA, NAAT Blood Type Blood Type Recheck Antibody Screen Crossmatch
[2023-05-07 11:17] LABS: HBSAG NON-REACTIVE (NON-REACTIVE)
[2023-05-07] MEDS: buprenorphine HCL 2 MG SUBL SL SCH (14:28)
[2023-05-07 14:37] LABS: Basophils # (auto) 0.02 K/uL (0-0.2); Basophils % (auto) 0.1 %; Eosinophils # (auto) 0.14 K/uL (0-0.50); Eosinophils % (auto) 0.9 %; Hematocrit (blood only) 22.9 % (37.0-47.0); Hemoglobin 7.9 g/dl (12.0-16.0); Immature Granulocytes # (auto) 0.18 K/uL (0.01-0.20); Immature Granulocytes % (auto) 1.2 %; Lymphocytes # (auto) 2.87 K/uL (1.2-3.4); Lymphocytes % (auto) 18.8 %; Mean Corpuscular Hemoglobin 29.8 pg (25.0-34.0); Mean Corpuscular Hgb Conc 34.5 g/dL (32.0-36.0); Mean Corpuscular Volume 86.4 fL (80.0-100.0); Mean Platelet Volume 12.6 fL (9.4-12.4); Monocytes # (auto) 0.99 K/uL (0.11-0.59); Monocytes % (auto) 6.5 %; Neutrophils # (auto) 11.09 K/uL (1.40-6.50); Neutrophils % (auto) 72.5 %; Platelet Count 89 K/uL (130-400); RDW Coefficient of Variation 14.3 % (11.5-14.5); RDW Standard Deviation 43.4 fL (36.4-46.3); Red Blood Count 2.65 M/uL (4.20-5.40); White Blood Count 15.29 K/ul (4.8-10.8)
[2023-05-07 14:57] LABS: Albumin Globulin Ratio 1.1 (0.9-2); Albumin Level 2.1 gm/dl (3.4-5.0); BUN Creatinine Ratio 7.5 (10-20); Bilirubin,Total 0.2 mg/dl (0.2-1.0); Calcium 7.1 mg/dl (8.6-10.3); Creatinine Clr Calc Pharmacy 120.4 ml/min; Est GFR (African American) 133.9 ml/min; Est GFR (Non-African American) 115.5 ml/min; Potassium 3.9 mmol/L (3.5-5.1); Total Protein 4.1 gm/dl (6.0-8.3)
[2023-05-07 14:58] LABS: Anisocytosis Present; Polychromasia 1+
[2023-05-07] MEDS ORDERED: bisacodyL 5 MG TABEC PO SCH (20:00)
[2023-05-07 20:26] LABS: Basophils # (auto) 0.04 K/uL (0-0.2); Basophils % (auto) 0.2 %; Eosinophils # (auto) 0.14 K/uL (0-0.50); Eosinophils % (auto) 0.7 %; Hematocrit (blood only) 23.5 % (37.0-47.0); Hemoglobin 8.1 g/dl (12.0-16.0); Immature Granulocytes # (auto) 0.25 K/uL (0.01-0.20); Immature Granulocytes % (auto) 1.3 %; Lymphocytes # (auto) 2.89 K/uL (1.2-3.4); Lymphocytes % (auto) 15.1 %; Mean Corpuscular Hemoglobin 30.2 pg (25.0-34.0); Mean Corpuscular Hgb Conc 34.5 g/dL (32.0-36.0); Mean Corpuscular Volume 87.7 fL (80.0-100.0); Mean Platelet Volume 12.2 fL (9.4-12.4); Monocytes # (auto) 1.05 K/uL (0.11-0.59); Monocytes % (auto) 5.5 %; Neutrophils # (auto) 14.72 K/uL (1.40-6.50); Neutrophils % (auto) 77.2 %; Nucleated RBC # (auto) 0.02 K/uL (0-0.12); Nucleated RBC % (auto) 0.1 %; Platelet Count 108 K/uL (130-400); RDW Coefficient of Variation 14.5 % (11.5-14.5); RDW Standard Deviation 44.2 fL (36.4-46.3); Red Blood Count 2.68 M/uL (4.20-5.40); White Blood Count 19.09 K/ul (4.8-10.8)
[2023-05-07 20:43] LABS: Albumin Globulin Ratio 1.1 (0.9-2); Albumin Level 2.5 gm/dl (3.4-5.0); BUN Creatinine Ratio 11.7 (10-20); Bilirubin,Total 0.3 mg/dl (0.2-1.0); Calcium 7.3 mg/dl (8.6-10.3); Creatinine Clr Calc Pharmacy 104.7 ml/min; Est GFR (African American) 117.6 ml/min; Est GFR (Non-African American) 101.4 ml/min; Globulin 2.2 gm/dl (2.5-4.0); Total Protein 4.7 gm/dl (6.0-8.3)
[2023-05-07 22:53] LABS: Potassium 4.5 mmol/L (3.5-5.1)
[2023-05-07 23:47] LABS: Amphetamine Urine, Confirm 1409 ng/mL (<250); Methamphetamine, Ur Confirm 1884 ng/mL (<250)
[2023-05-08 02:21] LABS: Basophils # (auto) 0.03 K/uL (0-0.2); Basophils % (auto) 0.2 %; Eosinophils # (auto) 0.19 K/uL (0-0.50); Hematocrit (blood only) 21.1 % (37.0-47.0); Hemoglobin 7.4 g/dl (12.0-16.0); Immature Granulocytes # (auto) 0.31 K/uL (0.01-0.20); Immature Granulocytes % (auto) 1.7 %; Lymphocytes # (auto) 3.33 K/uL (1.2-3.4); Lymphocytes % (auto) 17.8 %; Mean Corpuscular Hemoglobin 30.5 pg (25.0-34.0); Mean Corpuscular Hgb Conc 35.1 g/dL (32.0-36.0); Mean Corpuscular Volume 86.8 fL (80.0-100.0); Mean Platelet Volume 12.7 fL (9.4-12.4); Monocytes # (auto) 1.06 K/uL (0.11-0.59); Monocytes % (auto) 5.7 %; Neutrophils # (auto) 13.74 K/uL (1.40-6.50); Neutrophils % (auto) 73.6 %; Nucleated RBC # (auto) 0.02 K/uL (0-0.12); Nucleated RBC % (auto) 0.1 %; Platelet Count 104 K/uL (130-400); RDW Coefficient of Variation 14.3 % (11.5-14.5); RDW Standard Deviation 44.2 fL (36.4-46.3); Red Blood Count 2.43 M/uL (4.20-5.40); White Blood Count 18.66 K/ul (4.8-10.8)
[2023-05-08 02:40] LABS: Albumin Level 2.3 gm/dl (3.4-5.0); Anisocytosis Present; BUN Creatinine Ratio 15.5 (10-20); Bilirubin,Total 0.2 mg/dl (0.2-1.0); Calcium 7.3 mg/dl (8.6-10.3); Creatinine Clr Calc Pharmacy 113.6 ml/min; Est GFR (African American) 129.7 ml/min; Est GFR (Non-African American) 111.9 ml/min; Globulin 2.2 gm/dl (2.5-4.0); Potassium 4.6 mmol/L (3.5-5.1); Total Protein 4.5 gm/dl (6.0-8.3)
[2023-05-08 06:44] LABS: Hematocrit (blood only) 20.1 % (37.0-47.0); Hemoglobin 6.9 g/dl (12.0-16.0); Mean Corpuscular Hemoglobin 30.7 pg (25.0-34.0); Mean Corpuscular Hgb Conc 34.3 g/dL (32.0-36.0); Mean Corpuscular Volume 89.3 fL (80.0-100.0); Mean Platelet Volume 12.3 fL (9.4-12.4); Platelet Count 110 K/uL (130-400); RDW Coefficient of Variation 14.5 % (11.5-14.5); RDW Standard Deviation 45.2 fL (36.4-46.3); Red Blood Count 2.25 M/uL (4.20-5.40); White Blood Count 16.21 K/ul (4.8-10.8)
[2023-05-08 06:56] LABS: Albumin Level 2.2 gm/dl (3.4-5.0); BUN Creatinine Ratio 16.7 (10-20); Bilirubin Direct 0.1 mg/dl (0-0.2); Bilirubin,Total 0.2 mg/dl (0.2-1.0); Calcium 7.3 mg/dl (8.6-10.3); Creatinine Clr Calc Pharmacy 134.4 ml/min; Est GFR (African American) 138.8 ml/min; Est GFR (Non-African American) 119.8 ml/min; Globulin 2.1 gm/dl (2.5-4.0); Potassium 4.4 mmol/L (3.5-5.1); Total Protein 4.3 gm/dl (6.0-8.3)
[2023-05-08 07:17] LABS: Basophils # (auto) 0.03 K/uL (0-0.2); Basophils % (auto) 0.2 %; Eosinophils # (auto) 0.25 K/uL (0-0.50); Eosinophils % (auto) 1.5 %; Immature Granulocytes # (auto) 0.33 K/uL (0.01-0.20); Lymphocytes # (auto) 3.58 K/uL (1.2-3.4); Lymphocytes % (auto) 22.1 %; Monocytes # (auto) 0.83 K/uL (0.11-0.59); Monocytes % (auto) 5.1 %; Neutrophils # (auto) 11.19 K/uL (1.40-6.50); Neutrophils % (auto) 69.1 %; RBC Morphology Unremarkable
[2023-05-08 07:45] LABS: Hematocrit (blood only) 20.9 % (37.0-47.0); Hemoglobin 7.1 g/dl (12.0-16.0); Mean Corpuscular Volume 88.2 fL (80.0-100.0); Platelet Count 111 K/uL (130-400); RDW Coefficient of Variation 14.6 % (11.5-14.5); RDW Standard Deviation 44.2 fL (36.4-46.3); Red Blood Count 2.37 M/uL (4.20-5.40); White Blood Count 16.63 K/ul (4.8-10.8)
[2023-05-08] MEDS ORDERED: ACETAMINOPHEN 325 MG TAB PO ONE (07:58)
[2023-05-08] MEDS ORDERED: STAT IV STA (07:58)
[2023-05-08] MEDS ORDERED: CALCIUM GLUCONATE 10% 2,000 MG in DEXTROSE 5% 50 ML IV ONE (07:58)
[2023-05-08] MEDS ORDERED: SODIUM CHLORIDE 0.9% 250 ML IV PRN (07:58)
[2023-05-08 08:01] LABS: Basophils # (auto) 0.04 K/uL (0-0.2); Basophils % (auto) 0.2 %; Eosinophils # (auto) 0.22 K/uL (0-0.50); Eosinophils % (auto) 1.3 %; Immature Granulocytes # (auto) 0.36 K/uL (0.01-0.20); Immature Granulocytes % (auto) 2.2 %; Lymphocytes # (auto) 3.71 K/uL (1.2-3.4); Lymphocytes % (auto) 22.3 %; Monocytes # (auto) 0.86 K/uL (0.11-0.59); Monocytes % (auto) 5.2 %; Neutrophils # (auto) 11.44 K/uL (1.40-6.50); Neutrophils % (auto) 68.8 %; RBC Morphology Unremarkable
[2023-05-08 08:03] LABS: Albumin Level 2.3 gm/dl (3.4-5.0); BUN Creatinine Ratio 15.5 (10-20); Bilirubin,Total 0.2 mg/dl (0.2-1.0); Calcium 7.4 mg/dl (8.6-10.3); Creatinine Clr Calc Pharmacy 139.1 ml/min; Est GFR (African American) 140.4 ml/min; Est GFR (Non-African American) 121.1 ml/min; Globulin 2.2 gm/dl (2.5-4.0); Potassium 4.5 mmol/L (3.5-5.1); Total Protein 4.5 gm/dl (6.0-8.3)
--- NOTE | 2023-05-08 08:12 | Obstetrical Progress Note ---
Date of Service May 08, 2023 Assessment & Plan (1) HELLP syndrome: Meets criteria for HELLP syndrome based on low platelets, hemolysis and elevated liver enzymes after dleivery Improved liver enzymes now Plan for possible d/c home tomorrow (2) hemorrhage: Status post 2 units of packed red blood cells Needs 2 additional units at this time (3) complicated by subutex maintenance, antepartum: (4) Retained placenta: (5) Thrombocytopenia: (6) Hypocalcemia: Status post calcium gluconate treatment, currently on p.o. calcium Will treat once more since blood transfusion contains EDTA and lowers calcium with treatment Subjective Ambulation: ambulating normally Voiding: no voiding problems Passing Gas:: Yes Diet Tolerance:: regular diet Lochia:: Small Feeding Type:: bottle feeding Current Pain Level(1-10): 0 Doing well, mild back pain and cramping since being is hospital bed Physical Exam Constitutional WD/WN, vitals as above Respiratory normal respiratory effort, lungs clear to auscultation Cardiovascular RRR, no murmur, no edema Gastrointestinal (Abdomen) normal bowel sounds, soft, nontender, no hepatosplenomegaly Results & Data Vital Signs (Past 12 Hours) Vital Signs Temp Pulse Resp BP Pulse Ox O2 Del Method 05/08/23 07:40 37 C 88 16 133/85 100 Room Air 05/07/23 23:20 36.9 C 110 H 20 128/87 98 Room Air 05/07/23 20:17 Room Air Laboratory Results Laboratory Results WBC 16.63 K/ul (4.8-10.8) H 05/08/23 07:03 RBC 2.37 M/uL (4.20-5.40) L 05/08/23 07:03 Hgb 7.1 g/dl (12.0-16.0) L 05/08/23 07:03 Hct 20.9 % (37.0-47.0) L* 05/08/23 07:03 MCV 88.2 fL (80.0-100.0) 05/08/23 07:03 MCH 30.0 pg (25.0-34.0) 05/08/23 07:03 MCHC 34.0 g/dL (32.0-36.0) 05/08/23 07:03 RDW Std Deviation 44.2 fL (36.4-46.3) 05/08/23 07:03 RDW Coeff of Alex 14.6 % (11.5-14.5) H 05/08/23 07:03 Plt Count 111 K/uL (130-400) L 05/08/23 07:03 MPV 12.0 fL (9.4-12.4) 05/08/23 07:03 Immature Gran % (Auto) 2.2 % 05/08/23 07:03 Neut % (Auto) 68.8 % 05/08/23 07:03 Lymph % (Auto) 22.3 % 05/08/23 07:03 [place] % (Auto) 5.2 % 05/08/23 07:03 Eos % (Auto) 1.3 % 05/08/23 07:03 Baso % (Auto) 0.2 % 05/08/23 07:03 Neut # (Auto) 11.44 K/uL (1.40-6.50) H 05/08/23 07:03 Lymph # (Auto) 3.71 K/uL (1.2-3.4) H 05/08/23 07:03 [place] # (Auto) 0.86 K/uL (0.11-0.59) H 05/08/23 07:03 Eos # (Auto) 0.22 K/uL (0-0.50) 05/08/23 07:03 Baso # (Auto) 0.04 K/uL (0-0.2) 05/08/23 07:03 Immature Gran # (Auto) 0.36 K/uL (0.01-0.20) H 05/08/23 07:03 Absolute Nucleated RBC 0.02 K/uL (0-0.12) 05/08/23 01:51 Nucleated RBC % (auto) 0.1 % 05/08/23 01:51 Platelet Estimate Decreased (Normal) L 05/05/23 14:34 RBC Morphology Unremarkable 05/08/23 07:03 Polychromasia 1+ 05/07/23 14:06 Anisocytosis Present 05/08/23 01:51 Fibrinogen 342 mg/dl (184-400) 05/06/23 08:03 Sodium 138 mmol/L (136-145) 05/08/23 07:03 Potassium 4.5 mmol/L (3.5-5.1) 05/08/23 07:03 Chloride 110 mmol/L (98-107) H 05/08/23 07:03 Carbon Dioxide 25 mmol/L (21-32) 05/08/23 07:03 Anion Gap 3 (3-11) 05/08/23 07:03 BUN 9 mg/dl (6-23) 05/08/23 07:03 Creatinine 0.58 mg/dl (0.6-1.2) L 05/08/23 07:03 Est Cr Clr Drug Dosing 139.1 ml/min 05/08/23 07:03 Est GFR ( Amer) 140.4 ml/min 05/08/23 07:03 Est GFR (Non-Af Amer) 121.1 ml/min 05/08/23 07:03 BUN/Creatinine Ratio 15.5 (10-20) 05/08/23 07:03 Glucose 94 mg/dl (70-99(Fasting)) 05/08/23 07:03 Uric Acid 5.0 mg/dl (2.6-7.2) 05/05/23 14:34 Calcium 7.4 mg/dl (8.6-10.3) L 05/08/23 07:03 Ionized Calcium 0.85 mmol/L (1.12-1.32) L 05/06/23 15:06 Magnesium (Sulf Ther) 4.7 mg/dL (4.0-8.0) 05/07/23 02:07 Total Bilirubin 0.2 mg/dl (0.2-1.0) 05/08/23 07:03 Direct Bilirubin 0.1 mg/dl (0-0.2) 05/08/23 06:07 AST 25 U/L (13-39) 05/08/23 07:03 ALT 28 U/L (7-52) 05/08/23 07:03 Alkaline Phosphatase 134 U/L (34-104) H 05/08/23 07:03 Lactate Dehydrogenase 434 U/L (86-244) H 05/06/23 08:03 Total Protein 4.5 gm/dl (6.0-8.3) L 05/08/23 07:03 Albumin 2.3 gm/dl (3.4-5.0) L 05/08/23 07:03 Globulin 2.2 gm/dl (2.5-4.0) L 05/08/23 07:03 Albumin/Globulin Ratio 1.0 (0.9-2) 05/08/23 07:03 Urine Color Dark Yellow 05/05/23 14:00 Urine Appearance Cloudy (Clear) A 05/05/23 14:00 Urine pH 6.5 (4.5-7.5) 05/05/23 14:00 Ur Specific [place] 1.018 (1.000-1.030) 05/05/23 14:00 Urine Protein 2+ (Negative) H 05/05/23 14:00 Urine Glucose (UA) Negative (Negative) 05/05/23 14:00 Urine Ketones Negative (Negative) 05/05/23 14:00 Urine Blood 1+ (Negative) H 05/05/23 14:00 Urine Nitrite Negative (Negative) 05/05/23 14:00 Urine Bilirubin Negative (Negative) 05/05/23 14:00 Urine Urobilinogen Negative (Negative) 05/05/23 14:00 Ur Leukocyte Esterase Trace (Negative) H 05/05/23 14:00 Urine WBC (Auto) 10-30 /hpf (0-5) H 05/05/23 14:00 Urine RBC (Auto) 5-10 /hpf (0-4) H 05/05/23 14:00 U Hyaline Cast (Auto) 1-5 /lpf (0-5) 05/05/23 14:00 U Epithel Cells (Auto) >30 /lpf (0-5) H 05/05/23 14:00 Urine Bacteria (Auto) 2+ (Negative) H 05/05/23 14:00 Ur Random Creatinine 126.0 mg/dl 05/05/23 14:00 U Random Total Protein 91.9 mg/dl (0-11.9) H 05/05/23 14:00 Protein/Creatinin Ratio 0.7 (0-0.2) H 05/05/23 14:00 Urine Opiates Screen Neg (Neg) 05/05/23 14:00 Ur Methadone, Qual Neg (Neg) 05/05/23 14:00 Urine Barbiturates Neg (Neg) 05/05/23 14:00 Ur Phencyclidine (PCP) Neg (Neg) 05/05/23 14:00 U Amphetamines Confirm 1409 ng/mL (<250) H 05/05/23 14:00 U Amphetamin/Meth Scrn Pos (Neg) H 05/05/23 14:00 U Methamphetamin Confrm 1884 ng/mL (<250) H 05/05/23 14:00 MDMA (Ecstasy) Screen Neg (Neg) 05/05/23 14:00 U Benzodiazepines Scrn Neg (Neg) 05/05/23 14:00 Ur Cocaine Metabolite Neg (Neg) 05/05/23 14:00 U Marijuana (THC) Screen Neg (Neg) 05/05/23 14:00 Drug Screen Comment SEE NOTE 05/05/23 14:00 RPR Nonreactive (Nonreactive) 05/05/23 14:34 Hep Bs Antigen NON-REACTIVE (NON-REACTIVE) 05/05/23 14:34 Hep Bs Ag Confirmation TNP 05/05/23 14:34 Hepatitis C Ab (EIA) NON-REACTIVE (NON-REACTIVE) 05/05/23 14:34 HIV (1&2) Ag & Ab Conf NON-REACTIVE (NON-REACTIVE) 05/05/23 14:34 Rubella IgG Antibody Immune (Immune) 05/05/23 14:34 Rubella IgG Ab Index 25.1 IU/mL 05/05/23 14:34 SARS-CoV-2, RNA, NAAT NEGATIVE (NEGATIVE) 05/05/23 Unknown Blood Type O Positive 05/05/23 14:34 Blood Type Recheck O Positive 05/05/23 16:07 Antibody Screen NEGATIVE 05/05/23 14:34 Crossmatch See Detail 05/05/23 14:34
[2023-05-08] MEDS: PRENATAL VITAMIN 1 TAB PO SCH (08:20)
[2023-05-08] MEDS: DOCUSATE SODIUM 100 MG CAP PO SCH ×2 (08:20→21:19)
[2023-05-08] MEDS: buprenorphine HCL 8 MG SUBL SL SCH ×2 (09:05→21:19)
[2023-05-08] MEDS: CALCITRIOL 0.25 MCG CAPSULE PO SCH (09:55)
[2023-05-08] MEDS: NICOTINE 14 MG/24 HR PATCH TD SCH (09:55)
[2023-05-08] MEDS: IBUPROFEN 600 MG TAB PO PRN ×2 (10:09→14:00)
[2023-05-08] MEDS: buprenorphine HCL 2 MG SUBL SL SCH (14:00)
[2023-05-08] MEDS ORDERED: LABETALOL HCL IV 5 MG/ML 20ML IV STA ×2 (14:58→19:42)
[2023-05-08] MEDS ORDERED: NIFEdipine EXTENDED REL 30 MG TABCR PO STA (15:02)
[2023-05-08 16:02] LABS: Basophils # (auto) 0.04 K/uL (0-0.2); Basophils % (auto) 0.2 %; Eosinophils # (auto) 0.18 K/uL (0-0.50); Hematocrit (blood only) 27.1 % (37.0-47.0); Hemoglobin 9.4 g/dl (12.0-16.0); Immature Granulocytes # (auto) 0.63 K/uL (0.01-0.20); Immature Granulocytes % (auto) 3.7 %; Lymphocytes # (auto) 2.84 K/uL (1.2-3.4); Lymphocytes % (auto) 16.5 %; Mean Corpuscular Hemoglobin 30.3 pg (25.0-34.0); Mean Corpuscular Hgb Conc 34.7 g/dL (32.0-36.0); Mean Corpuscular Volume 87.4 fL (80.0-100.0); Mean Platelet Volume 11.8 fL (9.4-12.4); Monocytes # (auto) 0.74 K/uL (0.11-0.59); Monocytes % (auto) 4.3 %; Neutrophils # (auto) 12.74 K/uL (1.40-6.50); Neutrophils % (auto) 74.3 %; Nucleated RBC # (auto) 0.04 K/uL (0-0.12); Nucleated RBC % (auto) 0.2 %; Platelet Count 125 K/uL (130-400); RDW Coefficient of Variation 14.7 % (11.5-14.5); RDW Standard Deviation 45.9 fL (36.4-46.3); White Blood Count 17.17 K/ul (4.8-10.8)
[2023-05-08 16:20] LABS: Albumin Level 2.5 gm/dl (3.4-5.0); BUN Creatinine Ratio 12.9 (10-20); Bilirubin,Total 0.6 mg/dl (0.2-1.0); Calcium 8.5 mg/dl (8.6-10.3); Creatinine Clr Calc Pharmacy 130.1 ml/min; Est GFR (African American) 137.3 ml/min; Est GFR (Non-African American) 118.5 ml/min; Globulin 2.4 gm/dl (2.5-4.0); Potassium 4.4 mmol/L (3.5-5.1); Total Protein 4.9 gm/dl (6.0-8.3)
[2023-05-09] MEDS: IBUPROFEN 600 MG TAB PO PRN (04:25)
[2023-05-09 06:45] LABS: Hematocrit (blood only) 27.3 % (37.0-47.0); Hemoglobin 9.4 g/dl (12.0-16.0); Mean Corpuscular Hemoglobin 30.5 pg (25.0-34.0); Mean Corpuscular Hgb Conc 34.4 g/dL (32.0-36.0); Mean Corpuscular Volume 88.6 fL (80.0-100.0); Mean Platelet Volume 11.6 fL (9.4-12.4); Nucleated RBC # (auto) 0.05 K/uL (0-0.12); Nucleated RBC % (auto) 0.3 %; Platelet Count 153 K/uL (130-400); RDW Coefficient of Variation 15.2 % (11.5-14.5); RDW Standard Deviation 47.4 fL (36.4-46.3); Red Blood Count 3.08 M/uL (4.20-5.40); White Blood Count 15.87 K/ul (4.8-10.8)
[2023-05-09 06:55] LABS: Albumin Level 2.6 gm/dl (3.4-5.0); BUN Creatinine Ratio 12.7 (10-20); Bilirubin,Total 0.3 mg/dl (0.2-1.0); Calcium 8.1 mg/dl (8.6-10.3); Creatinine Clr Calc Pharmacy 146.6 ml/min; Est GFR (African American) 142.8 ml/min; Est GFR (Non-African American) 123.2 ml/min; Globulin 2.5 gm/dl (2.5-4.0); Potassium 3.8 mmol/L (3.5-5.1); Total Protein 5.1 gm/dl (6.0-8.3)
[2023-05-09] MEDS: CALCITRIOL 0.25 MCG CAPSULE PO SCH (08:48)
[2023-05-09] MEDS: buprenorphine HCL 8 MG SUBL SL SCH (08:48)
[2023-05-09] MEDS: DOCUSATE SODIUM 100 MG CAP PO SCH (08:48)
[2023-05-09] MEDS: PRENATAL VITAMIN 1 TAB PO SCH (08:48)
[2023-05-09] MEDS: NICOTINE 14 MG/24 HR PATCH TD SCH (08:49)
[2023-05-09] MEDS ORDERED: NIFEdipine EXTENDED REL 30 MG TABCR PO SCH (09:00)
--- NOTE | 2023-05-09 11:21 | Obstetrical Progress Note ---
Date of Service May 09, 2023 Assessment & Plan (1) HELLP syndrome: (2) hemorrhage: Subjective Ambulation: ambulating normally Voiding: no voiding problems Passing Gas:: Yes Diet Tolerance:: regular diet Lochia:: Small Feeding Type:: breast feeding Review of Systems All systems reviewed & are unremarkable except as noted in HPI & below Physical Exam Constitutional WD/WN, vitals as above well developed and well nourished Eyes PERRL, conjunctivae normal, anicteric sclerae Neck trachea midline, no thyromegaly Respiratory normal respiratory effort, lungs clear to auscultation Auscultation: no crackles, no rales and no wheezes Cardiovascular RRR, no murmur, no edema Gastrointestinal (Abdomen) normal bowel sounds, soft, nontender, no hepatosplenomegaly Uterus is below umbilicus Musculoskeletal no cyanosis or clubbing, extremities motor strength 5/5 Skin no rashes, warm and dry Neurologic patellar DTR's 2+ bilat, sensation intact Psychiatric A+Ox3, euthymic affect Genitourinary normal external appearance Results & Data Vital Signs (Past 12 Hours) Vital Signs Temp Pulse Resp BP 05/09/23 07:51 18 05/09/23 03:50 37.3 C 18 05/09/23 08:52 99 H 138/91 05/09/23 05:39 100 H 136/81 05/09/23 04:36 91 H 126/64 05/09/23 04:20 96 H 196/88 H 05/09/23 03:20 90 146/83 H 05/09/23 02:20 93 H 136/79 05/09/23 01:20 94 H 142/74 H 05/09/23 00:20 95 H 137/73 Medications Administered PPD #4 pt doing well stable BP and labs pt wishes to be discharged home
--- NOTE | 2023-05-14 11:05 | Operative Report ---
Post Operative Report Pre & Post Diagnosis Operation Date: 05/06/23 04:20 Pre-Op Diagnosis: retained placenta Post-Op Diagnosis: same as pre-op I identified the patient and participated in the time-out.: Yes Procedure Operation Date: 05/06/23 04:20 Actual Procedures p Labor Delivery Dilation and Curettage - Griffin Paez MD Surgeon Griffin Paez MD Teacher Of The Hearing Impaired none Estimated Blood Loss 1,000 Findings Consistent with Post-Op Diagnosis Retained placenta Fluids LR Specimens Placenta Drains None Anesthesia Type General Complications None Disposition Accompanied Patient To Recovery: Yes Indications Retained placenta Description of Procedure Under satisfactory general anesthesia the patient was prepped and draped usual sterile fashion. Ultrasound guidance was then used the purchase analyst present for the procedure manual removal of partial placenta was accomplished however there was still noted to be placental fragments that were retained large banjo curette was then used curetting out piecemeal portions of the placenta and a r ing forceps was then used to grab partial partial fragmented pieces of the placenta as well should be noted that placental tissue appeared to be calcified at the end of the procedure ultrasound once more looked at the uterine cavity and noted to be free of any placental fragments this procedure was then terminated the patient had IV Pitocin going and 1000 mcg of Cytotec were placed rectally. The final sponge needle instrument counts were found to be correct the patient was then placed supine in the stretcher and she was taken back to her room in stable condition end of operative dictation I am Faith Mazariegos thank you I attest to the content of the Intraoperative Record and any orders documented therein. Any exceptions are noted below.
== END 2023-05-09 11:57 | disposition home or self-care (01) | DRG 806 ==
LOC: 4S1 13:46 → 4E2 05-07 04:07 → 4S1 05-08 15:32 → 4E2 05-09 10:30

== ENCOUNTER 2023-05-14 13:39 | Inpatient (IN) ==
[2023-05-14] MEDS ORDERED: SODIUM CHLORIDE 0.9% 1000ML 1,000 ML IV ONE (13:44)
[2023-05-14] MEDS ORDERED: SODIUM CHLORIDE 0.9% 250 ML IV PRN (13:51)
[2023-05-14] MEDS ORDERED: SODIUM CHLORIDE 0.9% 1000ML 2,000 ML IV ONE (13:51)
--- NOTE | 2023-05-14 13:54 | Emergency Department Note ---
Impression & Plan Retained products of conception with hemorrhage, Abnormal vaginal bleeding ED Provider Note NAME: JUAN C HARKINS AGE: 33 SEX: F : 1990 ARRIVES VIA: Walk-In INFORMANT: Patient ED PROVIDER(S): Arnaud Rivero DO CHIEF COMPLAINT: vaginal bleeding HPI: Patient is a 33-year-old female G2, P0, with previous methamphetamine use, on Subutex, who delivered last Thursday vaginally. Following this they had to go in and remove her placenta surgically. She had a normal postop course after this. She has had some decreased spotting. Today she had a large amount of va ginal bleeding. Denies any headache or change in vision. No chest pain or shortness of breath. No nausea vomiting or diarrhea. No dysuria urgency or frequency. PAST MEDICAL HISTORY:See Below PAST SURGICAL HISTORY:See Below FAMILY HISTORY:See Below SOCIAL HISTORY:See Below HOME MEDICATIONS:See Below ALLERGIES:See Below VITALS:See Below PHYSICAL EXAMINATION: GENERAL: Sitting up in bed, alert, well appearing, well nourished, no distress, non-toxic EYE EXAM: normal conjunctiva. OROPHARYNX: no exudate, no erythema, lips, buccal mucosa, and tongue normal and mucous membranes are moist NECK: supple, no nuchal rigidity, no adenopathy, non-tender LUNGS: Clear to auscultation. Normal chest wall mechanics HEART: no murmurs, S1 normal and S2 normal ABDOMEN: abdomen soft, non-tender, normo-active bowel sounds, no masses, no rebound or guarding. UPPER EXTREMITIES: upper extremities are grossly normal. LOWER EXTREMITIES: No pitting edema. NEURO EXAM: Normal sensorium, cranial nerves II-XII grossly intact, normal spee ch, no gross weakness of arms, no gross weakness of legs. MEDICAL DECISION MAKING: Patient is a 33-year-old female who presents ER for above-stated complaint. IV was established blood work was obtained. External records reviewed. Labs show mild leukocytosis 12,000. Mild anemia at 10 consistent with previous. BMP along with LFTs bilirubin was unremarkable. Lipase was normal. Pelvic ultrasound suggest retained products. Patient was typed and crossed. Discussed with RESOLUTION MANAGER Dr. Brown who evaluate the patient at bedside and took her to the OR. She was given 2L IV fluids while in the ER. Patient remained stable while in the ER. Triage Nursing notes reviewed. Limited review of prior medical records performed Vital Signs: reviewed and remarkable for tachycardia Differential diagnosis: Differential diagnoses includes but is not limited to gastritis, peptic ulcer disease, GERD, gallbladder disease, pancreatitis, small bowel obstruction, appendicitis, diverticulitis, hernia, urinary tract infection, torsion, /ectopic (if female), perforation, trauma, infectious. ER treatment provided: See below Diagnostics interpreted by me include EKG and cardiac monitoring as listed below: -Cardiac Monitoring: An order was placed for continuous cardiac monitoring. The monitor shows a rate of 120 with sinus rhythm. -ECG: none -Laboratory studies:Interpreted by me as stated above in MDM and shown below. Imaging studies: Xrays: As interpreted by me:none CTs show: none Ultrasound the pelvis suggest retained products Consultation(s): As described in MDM Procedures:none Critical Care: None Past Med/Surg History Medical History Aseptic meningitis (03/22/13) Bartholin cyst Removal Cellulitis of labia Treatment with antibiotics. Cellulitis, neck Drug use [id number] Snorting pain pills. Has been on Subutex since May 2019. Encounter for pre-operative examination Meningitis (09/10/11) complicated by subutex maintenance, antepartum Smoker Smokes 1 pack per day Spontaneous 2008 and 2009 Surgical History [place] teeth extracted Family History Grandmother (Paternal) Diabetes Grandfather (Paternal) Diabetes Grandfather (Maternal) Hypertension Social History Smoking Status: Current every day smoker Cigarettes Per Day: 20; Do You Dip or Chew Tobacco: No; Hx Alcohol Use: No Hx Substance Use: No Preferred Language: Canadian Communication Ability: Effective Pathology Technologist Required: No Beliefs That Will Affect Care: None marital status: marital status details: Nash Augustine Current Living Situation: Spouse and Other Current Living Situation Comment: Patient lives with Familia, son. Nash is in a nursing home house in [place] current occupational status: employed current occupation: Homemaker - Used to work at [employer] Feels Safe at Home: Yes Diet: regular Assistive Devices: Denture - Upper and Denture - Lower Allergies Allergies Allergy/AdvReac Type Severity Reaction Status Date / Time coconut Allergy Severe Anaphylaxis Verified 05/14/23 16:59 fish derived Allergy Intermediate Hives Verified 05/14/23 16:59 iodine in fish Allergy Intermediate Hives Uncoded 05/14/23 16:59 Home Meds Home Medications Medication Instructions Recorded Confirmed buprenorphine HCl 8 mg sublingual 8 mg sublingual TID 11/29/19 05/14/23 tablet ibuprofen 600 mg tablet 600 mg PO Q4H PRN Pain 05/14/23 05/14/23 Previous Rx's Medication Instructions Recorded docusate sodium 100 mg capsule 100 mg PO DAILY@, #30 caps 05/09/23 nicotine 7 mg/24 hr daily 14 mg transdermal DAILY #90 ea 05/09/23 transdermal patch nifedipine 30 mg tablet,extended 30 mg PO QAM #60 tabs 05/09/23 release 24 hr (Procardia XL) Results & Data (ED) Vital Signs Vital Signs - 24 hr 05/14/23 13:40 05/14/23 15:52 05/14/23 15:52 Temperature 36.6 C Temperature Source Temporal Artery Scan Pulse Rate 122 H Pulse Rate [Apical] 96 H Pulse Rate [Finger] Pulse Rhythm [Apical] Regular Respiratory Rate 18 18 Respiratory Effort / Characteristics Non-Labored Spontaneous Non-Labored Spontaneous Respiratory Depth Normal Normal Respiratory Pattern Regular Regular Blood Pressure 155/99 H Blood Pressure [Right Arm] 143/82 H Blood Pressure Mean 117 Blood Pressure Mean [Right Arm] 102 Blood Pressure Position [Right Arm] Lying Pulse Oximetry 100 100 100 Oxygen Delivery Method Room Air Room Air Room Air Sepsis Recent Fever Within 48 Hours No Sepsis New/Unexplained Change in Mental Status No Sepsis Action Taken by Nursing No Action Required 05/14/23 16:24 05/14/23 17:41 Temperature 37.3 C Temperature Source Oral Pulse Rate 100 H Pulse Rate [Apical] Pulse Rate [Finger] 107 H Pulse Rhythm [Apical] Respiratory Rate 22 Respiratory Effort / Characteristics Non-Labored Spontaneous Respiratory Depth Normal Respiratory Pattern Regular Blood Pressure Blood Pressure [Right Arm] 140/89 Blood Pressure Mean Blood Pressure Mean [Right Arm] 106 Blood Pressure Position [Right Arm] Semi-fowlers Pulse Oximetry 100 Oxygen Delivery Method Room Air Sepsis Recent Fever Within 48 Hours Sepsis New/Unexplained Change in Mental Status Sepsis Action Taken by Nursing Laboratory Data 05/14/23 14:01 05/14/23 14:01 Lab Results 05/14/23 05/14/23 05/14/23 Range/Units 14:01 14:01 14:01 WBC 12.16 H (4.8-10.8) K/ul RBC 3.58 L (4.20-5.40) M/uL Hgb 10.7 L (12.0-16.0) g/dl Hct 33.1 L (37.0-47.0) % MCV 92.5 (80.0-100.0) fL MCH 29.9 (25.0-34.0) pg MCHC 32.3 (32.0-36.0) g/dL RDW Std Deviation 52.8 H (36.4-46.3) fL RDW Coeff of Alex 16.0 H (11.5-14.5) % Plt Count 364 (130-400) K/uL MPV 9.9 (9.4-12.4) fL Immature Gran % (Auto) 0.8 % Neut % (Auto) 76.3 % Lymph % (Auto) 15.7 % [place] % (Auto) 5.8 % Eos % (Auto) 1.1 % Baso % (Auto) 0.3 % Neut # (Auto) 9.27 H (1.40-6.50) K/uL Lymph # (Auto) 1.91 (1.2-3.4) K/uL [place] # (Auto) 0.71 H (0.11-0.59) K/uL Eos # (Auto) 0.13 (0-0.50) K/uL Baso # (Auto) 0.04 (0-0.2) K/uL Immature Gran # (Auto) 0.10 (0.01-0.20) K/uL Sodium 138 (136-145) mmol/L Potassium 3.7 (3.5-5.1) mmol/L Chloride 106 (98-107) mmol/L Carbon Dioxide 28 (21-32) mmol/L Anion Gap 4 (3-11) BUN 11 (6-23) mg/dl Creatinine 0.59 L (0.6-1.2) mg/dl Est Cr Clr Drug Dosing 137.2 ml/min Est GFR ( Amer) 139.6 ml/min Est GFR (Non-Af Amer) 120.4 ml/min BUN/Creatinine Ratio 18.6 (10-20) Glucose 106 H (70-99(Fasting)) mg/dl Calcium 8.4 L (8.6-10.3) mg/dl Total Bilirubin 0.2 (0.2-1.0) mg/dl AST 13 (13-39) U/L ALT 14 (7-52) U/L Alkaline Phosphatase 156 H (34-104) U/L Total Protein 6.1 (6.0-8.3) gm/dl Albumin 3.3 L (3.4-5.0) gm/dl Globulin 2.8 (2.5-4.0) gm/dl Albumin/Globulin Ratio 1.2 (0.9-2) Lipase 57 (11-82) U/L HCG, Quant 392 mIU/ml SARS-CoV-2, RNA, NAAT (NEGATIVE) Blood Type Antibody Screen Crossmatch 05/14/23 05/14/23 Range/Units 14:01 17:02 WBC (4.8-10.8) K/ul RBC (4.20-5.40) M/uL Hgb (12.0-16.0) g/dl Hct (37.0-47.0) % MCV (80.0-100.0) fL MCH (25.0-34.0) pg MCHC (32.0-36.0) g/dL RDW Std Deviation (36.4-46.3) fL RDW Coeff of Alex (11.5-14.5) % Plt Count (130-400) K/uL MPV (9.4-12.4) fL Immature Gran % (Auto) % Neut % (Auto) % Lymph % (Auto) % [place] % (Auto) % Eos % (Auto) % Baso % (Auto) % Neut # (Auto) (1.40-6.50) K/uL Lymph # (Auto) (1.2-3.4) K/uL [place] # (Auto) (0.11-0.59) K/uL Eos # (Auto) (0-0.50) K/uL Baso # (Auto) (0-0.2) K/uL Immature Gran # (Auto) (0.01-0.20) K/uL Sodium (136-145) mmol/L Potassium (3.5-5.1) mmol/L Chloride (98-107) mmol/L Carbon Dioxide (21-32) mmol/L Anion Gap (3-11) BUN (6-23) mg/dl Creatinine (0.6-1.2) mg/dl Est Cr Clr Drug Dosing ml/min Est GFR ( Amer) ml/min Est GFR (Non-Af Amer) ml/min BUN/Creatinine Ratio (10-20) Glucose (70-99(Fasting)) mg/dl Calcium (8.6-10.3) mg/dl Total Bilirubin (0.2-1.0) mg/dl AST (13-39) U/L ALT (7-52) U/L Alkaline Phosphatase (34-104) U/L Total Protein (6.0-8.3) gm/dl Albumin (3.4-5.0) gm/dl Globulin (2.5-4.0) gm/dl Albumin/Globulin Ratio (0.9-2) Lipase (11-82) U/L HCG, Quant mIU/ml SARS-CoV-2, RNA, NAAT NEGATIVE (NEGATIVE) Blood Type O Positive Antibody Screen NEGATIVE Crossmatch See Detail Administered Medications Discontinued Medications Sodium Chloride (Nss 1000ml) 1,000 mls @ 999 mls/hr IV .Q1H1M ONE Stop: 05/14/23 14:44 Last Admin: 05/14/23 16:46 Dose: Not Given Documented By: DENNISE Sodium Chloride (Nss 1000ml) 2,000 mls @ 999 mls/hr IV .Q2H1M ONE Stop: 05/14/23 15:51 Last Infusion: 05/14/23 17:14 Dose: 0 mls/hr Documented By: Admin: 05/14/23 15:04 Dose: 999 mls/hr Documented By: NAVNEET Methylergonovine Maleate (Methylergonovine Maleate 0.2 Mg/Ml Amp) Confirm Administered Dose 0.2 mg .ROUTE .STK-MED ONE Stop: 05/14/23 18:27 Last Admin: 05/14/23 18:28 Dose: 0.2 mg Documented By: [id number] Co-signed By: HAS Misoprostol (Misoprostol 200 Mcg Tab) Confirm Administered Dose 200 mcg .ROUTE .STK-MED ONE Stop: 05/14/23 18:31 Last Admin: 05/14/23 18:42 Dose: 200 mcg Documented By: ADDISON Misoprostol (Misoprostol 200 Mcg Tab) Confirm Administered Dose 800 mcg .ROUTE .STK-MED ONE Stop: 05/14/23 18:33 Last Admin: 05/14/23 18:42 Dose: 800 mcg Documented By: ADDISON Imaging Data Radiologist's Impression: Pelvis Ultrasound 05/14/23 13:44 ULTRASOUND OF THE PELVIS CLINICAL HISTORY: Postoperative vaginal bleeding. Recent vaginal delivery. COMPARISON STUDY: Pelvic CT dated 11/28/2018 TECHNIQUE: Real-time, grayscale, and color flow sonography of the pelvis is performed transabdominally. Images are reviewed in the transverse and longitudinal planes. FINDINGS: Uterus: The postgravid uterus is enlarged and heterogeneous, measuring 12.4 x 9.1 x 9.4 cm. Endometrium: The endometrium is markedly thickened and heterogeneous measuring up to 4.1 cm in diameter. This contains complex and echogenic internal debris with internal vascularity. The appearance is suspicious for retained products of conception Ovaries: The ovaries were not visualized on this transabdominal examination due to overlying bowel. Pelvis: There is no free fluid in the cul-de-sac. No concerning adnexal lesion is seen. IMPRESSION: 1. The postgravid uterus is enlarged and heterogeneous. 2. The endometrium is significantly thickened and filled with complex debris. Some of this shows internal flow on color imaging and is highly suspicious for retained product of conception. Obstetrical assessment is advised. 3. Nonvisualization of the ovaries. ACT 112: Negative or not required by law. Electronically signed by: Jose Johnston M.D. 05/14/2023 3:46 PM Discharge Plan Visit Data Chief Complaint: Vaginal Bleeding Stated Complaint: LABORED 1 WK AGO, RAPIDLY BLEEDING ED Provider: Arnaud Rivero Discharge Problem: Retained products of conception with hemorrhage, Abnormal vaginal bleeding Discharge Instructions Interventions: ED Discharge Assessment Last Done: 05/14/23 17:40
[2023-05-14 14:23] LABS: Basophils # (auto) 0.04 K/uL (0-0.2); Basophils % (auto) 0.3 %; Eosinophils # (auto) 0.13 K/uL (0-0.50); Eosinophils % (auto) 1.1 %; Hematocrit (blood only) 33.1 % (37.0-47.0); Hemoglobin 10.7 g/dl (12.0-16.0); Immature Granulocytes % (auto) 0.8 %; Lymphocytes # (auto) 1.91 K/uL (1.2-3.4); Lymphocytes % (auto) 15.7 %; Mean Corpuscular Hemoglobin 29.9 pg (25.0-34.0); Mean Corpuscular Hgb Conc 32.3 g/dL (32.0-36.0); Mean Corpuscular Volume 92.5 fL (80.0-100.0); Mean Platelet Volume 9.9 fL (9.4-12.4); Monocytes # (auto) 0.71 K/uL (0.11-0.59); Monocytes % (auto) 5.8 %; Neutrophils # (auto) 9.27 K/uL (1.40-6.50); Neutrophils % (auto) 76.3 %; Platelet Count 364 K/uL (130-400); RDW Standard Deviation 52.8 fL (36.4-46.3); Red Blood Count 3.58 M/uL (4.20-5.40); White Blood Count 12.16 K/ul (4.8-10.8)
[2023-05-14 14:40] LABS: Albumin Globulin Ratio 1.2 (0.9-2); Albumin Level 3.3 gm/dl (3.4-5.0); BUN Creatinine Ratio 18.6 (10-20); Bilirubin,Total 0.2 mg/dl (0.2-1.0); Calcium 8.4 mg/dl (8.6-10.3); Creatinine Clr Calc Pharmacy 137.2 ml/min; Est GFR (African American) 139.6 ml/min; Est GFR (Non-African American) 120.4 ml/min; Globulin 2.8 gm/dl (2.5-4.0); Potassium 3.7 mmol/L (3.5-5.1); Total Protein 6.1 gm/dl (6.0-8.3)
--- NOTE | 2023-05-14 15:47 | Ultrasound Report ---
ULTRASOUND OF THE PELVIS CLINICAL HISTORY: Postoperative vaginal bleeding. Recent vaginal delivery. COMPARISON STUDY: Pelvic CT dated 11/28/2018 TECHNIQUE: Real-time, grayscale, and color flow sonography of the pelvis is performed transabdominall y. Images are reviewed in the transverse and longitudinal planes. FINDINGS: Uterus: The postgravid uterus is enlarged and heterogeneous, measuring 12.4 x 9.1 x 9.4 cm. Endometrium: The endometrium is markedly thickened and heterogeneous measuring up to 4.1 cm in diamet er. This contains complex and echogenic internal debris with internal vascularity. The appearance is suspicious for retained products of conception Ovaries: The ovaries were not visualized on this transabdominal examination due to overlying bowel. Pelvis: There is no free fluid in the cul-de-sac. No concerning adnexal lesion is seen. IMPRESSION: 1. The postgravid uterus is enlarged and heterogeneous. 2. The endometrium is significantly thickened and filled with complex debris. Some of this shows inte rnal flow on color imaging and is highly suspicious for retained product of conception. Obstetrical a ssessment is advised. 3. Nonvisualization of the ovaries. ACT 112: Negative or not required by law. Electronically signed by: Jose Johnston M.D. 05/14/2023 3:46 PM
--- NOTE | 2023-05-14 17:17 | History & Physical Report ---
Date of Service May 14, 2023 Assessment & Plan (1) Retained placenta: Plan: D&C planned for OR History of Present Illness Chief Complaint: vaginal bleeding Primary Care Provider: Coreen Monae MD 33 F [id number] s/p several days ago 05/06/23 complicated with HELLP Syndrome, IUGR and post hemorrhage with post retained placenta and post curettage for retained placenta now presents with vaginal bleeding starting this morning heavy with large clots and blood gushing when standing. Ultrasound shows thickened endometrium with probable retained placental fragments. Allergies Allergy/AdvReac Type Severity Reaction Status Date / Time coconut Allergy Severe Anaphylaxis Verified 05/14/23 16:59 fish derived Allergy Intermediate Hives Verified 05/14/23 16:59 iodine in fish Allergy Intermediate Hives Uncoded 05/14/23 16:59 Home Medications Medication Instructions Recorded Confirmed Type buprenorphine HCl 8 mg sublingual 8 mg sublingual TID 11/29/19 05/14/23 History tablet docusate sodium 100 mg capsule 100 mg PO DAILY@ #30 caps 05/09/23 05/14/23 Rx nicotine 7 mg/24 hr daily 14 mg transdermal DAILY #90 ea 05/09/23 05/14/23 Rx transdermal patch nifedipine 30 mg tablet,extended 30 mg PO QAM #60 tabs 05/09/23 05/14/23 Rx release 24 hr (Procardia XL) ibuprofen 600 mg tablet 600 mg PO Q4H PRN Pain 05/14/23 05/14/23 History Patient History Medical History Aseptic meningitis (03/22/13) Bartholin cyst Removal Cellulitis of labia Treatment with antibiotics. Cellulitis, neck Drug use [id number] Snorting pain pills. Has been on Subutex since May 2019. Encounter for pre-operative examination Meningitis (09/10/11) complicated by subutex maintenance, antepartum Smoker Smokes 1 pack per day Spontaneous 2008 and 2009 Surgical History [place] teeth extracted Family History Grandmother (Paternal) Diabetes Grandfather (Paternal) Diabetes Grandfather (Maternal) Hypertension Social History Smoking Status: Current every day smoker Cigarettes Per Day: 20; Do You Dip or Chew Tobacco: No; Hx Alcohol Use: No Hx Substance Use: No Preferred Language: British Communication Ability: Effective An/Syq 13 Nav/C2 Operator Required: No Beliefs That Will Affect Care: None marital status: marital status details: Nash Augustine Current Living Situation: Spouse and Other Current Living Situation Comment: Patient lives with Familia, son. 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 Review of Systems All systems reviewed & are unremarkable except as noted in HPI & below Physical Exam Constitutional: WD/WN, vitals as above Eyes: PERRL, conjunctivae normal, anicteric sclerae Respiratory: normal respiratory effort, lungs clear to auscultation Cardiovascular: RRR, no murmur, no edema Gastrointestinal (Abdomen): Inspection/Auscultation: abdomen normal to inspection soft and non-tender Musculoskeletal: Extremities: extremities normal to inspection Skin: no rashes, warm and dry Neurologic: patellar DTR's 2+ bilat, sensation intact Psychiatric: A+Ox3, euthymic affect Results & Data Vital Signs (Past 12 Hours) Vital Signs Temp Pulse Pulse Resp BP BP Pulse Ox 05/14/23 16:24 100 H 05/14/23 15:52 100 05/14/23 15:52 96 H 18 143/82 H 100 05/14/23 13:40 36.6 C 122 H 18 155/99 H 100 O2 Del Method 05/14/23 16:24 05/14/23 15:52 Room Air 05/14/23 15:52 Room Air 05/14/23 13:40 Room Air Laboratory Results Laboratory Results - last 72 hr 05/14/23 05/14/23 05/14/23 14:01 14:01 14:01 WBC 12.16 H RBC 3.58 L Hgb 10.7 L Hct 33.1 L MCV 92.5 MCH 29.9 MCHC 32.3 RDW Std Deviation 52.8 H RDW Coeff of Alex 16.0 H Plt Count 364 MPV 9.9 Immature Gran % (Auto) 0.8 Neut % (Auto) 76.3 Lymph % (Auto) 15.7 [place] % (Auto) 5.8 Eos % (Auto) 1.1 Baso % (Auto) 0.3 Neut # (Auto) 9.27 H Lymph # (Auto) 1.91 [place] # (Auto) 0.71 H Eos # (Auto) 0.13 Baso # (Auto) 0.04 Immature Gran # (Auto) 0.10 Sodium 138 Potassium 3.7 Chloride 106 Carbon Dioxide 28 Anion Gap 4 BUN 11 Creatinine 0.59 L Est Cr Clr Drug Dosing 137.2 Est GFR ( Amer) 139.6 Est GFR (Non-Af Amer) 120.4 BUN/Creatinine Ratio 18.6 Glucose 106 H Calcium 8.4 L Total Bilirubin 0.2 AST 13 ALT 14 Alkaline Phosphatase 156 H Total Protein 6.1 Albumin 3.3 L Globulin 2.8 Albumin/Globulin Ratio 1.2 Lipase 57 HCG, Quant 392 Blood Type Antibody Screen Crossmatch 05/14/23 14:01 WBC RBC Hgb Hct MCV MCH MCHC RDW Std Deviation RDW Coeff of Alex Plt Count MPV Immature Gran % (Auto) Neut % (Auto) Lymph % (Auto) [place] % (Auto) Eos % (Auto) Baso % (Auto) Neut # (Auto) Lymph # (Auto) [place] # (Auto) Eos # (Auto) Baso # (Auto) Immature Gran # (Auto) Sodium Potassium Chloride Carbon Dioxide Anion Gap BUN Creatinine Est Cr Clr Drug Dosing Est GFR ( Amer) Est GFR (Non-Af Amer) BUN/Creatinine Ratio Glucose Calcium Total Bilirubin AST ALT Alkaline Phosphatase Total Protein Albumin Globulin Albumin/Globulin Ratio Lipase HCG, Quant Blood Type O Positive Antibody Screen NEGATIVE Crossmatch See Detail Diagnostic Findings ultrasound with evidence of retained placenta Code Status & VTE Plan VTE Prophylaxis Plan VTE Prophylaxis will be ordered: No
[2023-05-14] MEDS ORDERED: fentaNYL citrate PF 100 MCG/2 ML VIAL ONE ×2 (17:44→18:26)
[2023-05-14] MEDS ORDERED: MIDAZOLAM HCL 1 MG/ML 2ML VIAL ONE (17:44)
--- NOTE | 2023-05-14 17:45 | Anesthesiology Consultation ---
Date of Service May 14, 2023 Assessment & Plan ASA [id number] Proposed Anesthesia Anesthesia Type: General Risk / Benefits Reviewed With: PT / POA / Parent / Guardian, Accepts Plan and Informed Consent Obtained History Surgery Operation Date: 05/14/23 13:30 Proposed Procedures p Dilation and Curettage with Ultrasound - Griffin Paez MD Height/Weight Height: 5 ft 4 in Weight: 78.1 kg Allergies Allergy/AdvReac Type Severity Reaction Status Date / Time coconut Allergy Severe Anaphylaxis Verified 05/14/23 16:59 fish derived Allergy Intermediate Hives Verified 05/14/23 16:59 iodine in fish Allergy Intermediate Hives Uncoded 05/14/23 16:59 Medications Home Medications Medication Instructions Recorded Confirmed Last Taken buprenorphine HCl 8 mg sublingual 8 mg sublingual TID 11/29/19 05/14/23 05/05/23 09:30 tablet 8 mg docusate sodium 100 mg capsule 100 mg PO DAILY@08,21 #30 caps 05/09/23 05/14/23 Unknown nicotine 7 mg/24 hr daily 14 mg transdermal DAILY #90 ea 05/09/23 05/14/23 Unknown transdermal patch nifedipine 30 mg tablet,extended 30 mg PO QAM #60 tabs 05/09/23 05/14/23 Unknown release 24 hr (Procardia XL) ibuprofen 600 mg tablet 600 mg PO Q4H PRN Pain 05/14/23 05/14/23 Unknown NPO Date Last Intake of Fluids: 05/14/23 Time Last Intake of Fluids: 15:00 Last Intake of Fluids Comment: sip of soda Date Last Intake of Solids: 05/14/23 Time Last Intake of Solids: 00:00 Past Medical History Medical History Aseptic meningitis (03/22/13) Bartholin cyst Removal Cellulitis of labia Treatment with antibiotics. Cellulitis, neck Drug use [id number] Snorting pain pills. Has been on Subutex since May 2019. Encounter for pre-operative examination Meningitis (09/10/11) complicated by subutex maintenance, antepartum Smoker Smokes 1 pack per day Spontaneous 2008 and 2009 Exercise / Class Metabolic Activity II 4-5 Yardwork/Stairs/Walk up hill Past Family History Family History Grandmother (Paternal) Diabetes Grandfather (Paternal) Diabetes Grandfather (Maternal) Hypertension Past Surgical History Surgical History [place] teeth extracted Past Anesthesia History No Hx of Anesthesia Complications and No Family Hx of Anesthesia Complications History of PONV No Hx of PONV and No Hx of Motion Sickness Social History Smoking Status: Current every day smoker tobacco type: cigarettes Smoking cigarettes per day: 20 Do You Dip or Chew Tobacco: No Hx Alcohol Use: No Hx Substance Use: No substance use type: painkillers Last Used Substance Other:: 03/2019 Painkillers Review of Systems denies fever/cough/ colds/ chest pain/ SOB/ CATRACHITO denies CATRACHITO Physical Exam Vital Signs Last Vital Signs Temp 36.6 C 05/14/23 13:40 Pulse 100 H 05/14/23 16:24 Resp 18 05/14/23 15:52 BP 143/82 H 05/14/23 15:52 Pulse Ox 100 05/14/23 15:52 O2 Del Method Room Air 05/14/23 15:52 ENMT Mouth: + edentulous; no TMJ abnormality and no dentition abnormality Thyromental Distance: > or= 3.5 Finger Breadths Mallampati Class: I Neck neck extension not limited Respiratory normal respiratory effort; no respiratory distress Auscultation: lungs clear to auscultation bilaterally Cardiovascular Rate/Rhythm: regular rate and regular rhythm Neurologic moves all extremities Psychiatric Orientation: alert and oriented x 3 Testing Laboratory Results 05/14/23 14:01 05/14/23 14:01 HCG, Quant 392 mIU/ml 05/14/23 14:01 Blood Type O Positive 05/14/23 14:01 Antibody Screen NEGATIVE 05/14/23 14:01 05/14/23 14:01 HCG, Quant 392
[2023-05-14] MEDS ORDERED: diphenhydrAMINE 50 MG/ML VIAL ONE (18:06)
[2023-05-14] MEDS ORDERED: DEXAMETHASONE SOD INJ 4 MG/ML VIAL ONE (18:06)
[2023-05-14] MEDS ORDERED: LIDOCAINE 2% 2 ML VIAL/AMP(20MG/ML) INFIL ONE (18:06)
[2023-05-14] MEDS ORDERED: PROPOFOL IV EMULSION 10 MG/ML 20 ML VIAL IV ONE (18:06)
[2023-05-14] MEDS ORDERED: ONDANSETRON INJ 2 MG/ML 2 ML VIAL ONE (18:06)
[2023-05-14] MEDS ORDERED: KETOROLAC 30 MG/ML VIAL ONE (18:16)
[2023-05-14] MEDS ORDERED: OXYTOCIN 10 UNITS/ML VIAL ONE (18:16)
[2023-05-14] MEDS ORDERED: METHYLERGONOVINE MALEATE 0.2 MG/ML AMP ONE (18:26)
[2023-05-14] MEDS ORDERED: miSOPROStoL 200 MCG TAB ONE ×2 (18:30→18:32)
--- NOTE | 2023-05-14 18:50 | Post Operative Brief Note ---
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 Specimens placental fragments Anesthesia Type General Complications none Disposition Accompanied Patient To Recovery: Yes Overlapping Procedure I was present for: the critical portions of procedure. I was immediately available: during the entire case. Back up surgeon: was not required during procedure.
[2023-05-14] MEDS ORDERED: ePHEDrine sulfate 50 MG/ML AMP IV PRN (19:05)
[2023-05-14] MEDS ORDERED: fentaNYL citrate PF 100 MCG/2 ML VIAL IV PRN (19:05)
[2023-05-14] MEDS ORDERED: ATROPINE SULFATE 0.1 MG/ML 10ML SYR IV PRN (19:05)
[2023-05-14] MEDS ORDERED: ONDANSETRON INJ 2 MG/ML 2 ML VIAL IV PRN ×3 (19:05→19:56)
--- NOTE | 2023-05-14 19:29 | Operative Report ---
Post Operative Report Pre & Post Diagnosis Operation Date: 05/14/23 13:30 Pre-Op Diagnosis: Retained Placenta Post-Op Diagnosis: Retained Placenta I identified the patient and participated in the time-out.: Yes Procedure Operation Date: 05/14/23 13:30 Actual Procedures p Dilation and Curettage with Ultrasound(Not Applicable) - Griffin Paez MD Surgeon Griffin Paez MD Outreach Team Member none Estimated Blood Loss 1,000 Findings Consistent with Post-Op Diagnosis placental fragments Fluids LR 800 ml. Specimens placental fragments Drains none Anesthesia Type General Complications none Disposition Accompanied Patient To Recovery: Yes Indications bleeding Description of Procedure This is Dr. Paez dictating operative report on Faith Mazariegos. The patient presented to the emergency room after having a vaginal delivery and a hemorrhage requiring manual removal of placenta due to retained placenta that was done last week. She presents to the ER today with heavy vaginal bleeding and ultrasound report reveals probable retained placenta. She is given informed consent for a D&C under ultrasound guidance to remove the placental fragments due to her bleeding. Under satisfactory general anesthesia the patient was prepped draped usual sterile fashion ultrasound was present and scanned the patient prior to the start of the procedure revealing presence of placental tissue in the fundus. A catheter was then used to empty the bladder of 200 mL clear urine the cervix was noted to be open and then a large banjo curette was then used curetting out minimal amounts of tissue following this the ultrasound was then placed and a #14 Vacurette was placed under ultrasound guidance curetting and suctioning out placental fragments several passes with the curette were then made and suctioned out placental tissue. After this was done the ultrasound was then repeated and there was no evidence of any further tissue the Doppler was placed and no vascular flow was noted Pitocin was started and the IV the patient received IM Methergine 1000 mcg of Cytotec was then placed rectally. All remaining instruments were then removed from the vagina the final sponge needle count were found to be correct the estimated blood loss was approximately 1000 mL the patient was stable and then was transferred to the recovery room on a stretcher. Patient will have a CBC done stat in recovery room and then she will stay overnight until stable for discharge in the morning end of operative note on Faith Mazariegos I attest to the content of the Intraoperative Record and any orders documented therein. Any exceptions are noted below.
[2023-05-14 19:47] LABS: Hematocrit (blood only) 26.1 % (37.0-47.0); Hemoglobin 8.5 g/dl (12.0-16.0); Mean Corpuscular Hemoglobin 30.4 pg (25.0-34.0); Mean Corpuscular Hgb Conc 32.6 g/dL (32.0-36.0); Mean Corpuscular Volume 93.2 fL (80.0-100.0); Mean Platelet Volume 10.2 fL (9.4-12.4); Platelet Count 364 K/uL (130-400); RDW Coefficient of Variation 15.9 % (11.5-14.5); RDW Standard Deviation 51.9 fL (36.4-46.3); White Blood Count 24.49 K/ul (4.8-10.8)
[2023-05-14] MEDS ORDERED: ACETAMINOPHEN 325 MG TAB PO PRN (19:56)
[2023-05-14] MEDS ORDERED: KETOROLAC 30 MG/ML VIAL IV PRN (19:56)
[2023-05-14] MEDS ORDERED: IBUPROFEN 600 MG TAB PO PRN (19:56)
[2023-05-14] MEDS ORDERED: OXYTOCIN 30 UNITS in LACTATED RINGER'S 1,000 ML IV SCH (20:00)
--- NOTE | 2023-05-14 20:35 | Anesthesiology Progress Note ---
Date of Service May 14, 2023 Anesthesia Post Procedure Vital Signs Vital Signs: Temp Pulse Pulse Pulse Pulse Resp BP 05/14/23 20:07 37.0 C 112 H 18 05/14/23 19:40 105 H 15 05/14/23 19:30 37.1 C 102 H 12 05/14/23 19:20 102 H 12 05/14/23 19:10 97 H 11 L 05/14/23 19:00 36.1 C L 98 H 16 05/14/23 17:41 37.3 C 107 H 22 05/14/23 16:24 100 H 05/14/23 15:52 05/14/23 15:52 96 H 18 05/14/23 13:40 36.6 C 122 H 18 155/99 H BP BP Pulse Ox O2 Del Method O2 Flow Rate 05/14/23 20:07 112/67 97 Room Air 05/14/23 19:40 103/63 98 Room Air 05/14/23 19:30 103/64 97 Room Air 05/14/23 19:20 105/70 100 Room Air 05/14/23 19:10 109/70 100 Oxymask 4 05/14/23 19:00 107/76 100 Oxymask 6 05/14/23 17:41 140/89 100 Room Air 05/14/23 16:24 05/14/23 15:52 100 Room Air 05/14/23 15:52 143/82 H 100 Room Air 05/14/23 13:40 100 Room Air Pain Intensity Vaginal: Pain Intensity: 3 Transfer of Care Handoff Completed per policy Notes Mental Status: alert / awake / arousable and participated in evaluation Patient Amnestic to Procedure: Yes Nausea / Vomiting: adequately controlled Pain: adequately controlled Airway Patency, RR, SpO2: stable & adequate BP & HR: stable & adequate Hydration State: stable & adequate Anesthetic Complications: no major complications apparent and Pt Satisfied with anesthetic care
[2023-05-14] MEDS: NICOTINE 21 MG/24 HR TDSY TD SCH (21:17)
[2023-05-14] MEDS: buprenorphine HCL 8 MG SUBL SL SCH (21:32)
[2023-05-15] MEDS ORDERED: LACTATED RINGER'S 1,000 ML IV SCH (04:01)
[2023-05-15 07:14] LABS: Hematocrit (blood only) 19.5 % (37.0-47.0); Hemoglobin 6.7 g/dl (12.0-16.0); Mean Corpuscular Hemoglobin 31.2 pg (25.0-34.0); Mean Corpuscular Hgb Conc 34.4 g/dL (32.0-36.0); Mean Corpuscular Volume 90.7 fL (80.0-100.0); Mean Platelet Volume 10.8 fL (9.4-12.4); Platelet Count 307 K/uL (130-400); RDW Coefficient of Variation 15.6 % (11.5-14.5); RDW Standard Deviation 50.7 fL (36.4-46.3); Red Blood Count 2.15 M/uL (4.20-5.40); White Blood Count 18.36 K/ul (4.8-10.8)
[2023-05-15 07:41] LABS: Basophils # (auto) 0.02 K/uL (0-0.2); Basophils % (auto) 0.1 %; Echinocytes 1+; Immature Granulocytes # (auto) 0.13 K/uL (0.01-0.20); Immature Granulocytes % (auto) 0.7 %; Lymphocytes # (auto) 1.43 K/uL (1.2-3.4); Lymphocytes % (auto) 7.8 %; Monocytes % (auto) 2.7 %; Neutrophils # (auto) 16.28 K/uL (1.40-6.50); Neutrophils % (auto) 88.7 %; Polychromasia 1+; Tear Drop Cells 1+
[2023-05-15] MEDS: buprenorphine HCL 8 MG SUBL SL SCH (09:05)
[2023-05-15] MEDS: NICOTINE 21 MG/24 HR TDSY TD SCH (09:10)
--- NOTE | 2023-05-15 09:10 | Gynecologic Progress Note ---
Date of Service May 15, 2023 Assessment & Plan Admission and Anticipated Discharge Date Admission Date: May 14, 2023 Subjective doing well/denies SOB or dizziness/wants to go home minimal bleeding post procedure Physical Exam Constitutional: WD/WN, vitals as above Gastrointestinal (Abdomen): abdomen soft and non-tender. Fundus firm below U Musculoskeletal: Extremities: extremities normal to inspection Skin: no rashes, warm and dry pale Neurologic: patellar DTR's 2+ bilat, sensation intact Psychiatric: A+Ox3, euthymic affect Results & Data Vital Signs (Past 12 Hours) Vital Signs Temp Pulse Resp BP Pulse Ox O2 Del Method 05/15/23 07:35 37.0 C 95 H 18 103/60 95 Room Air 05/15/23 03:05 37.1 C 126 H 20 106/69 100 Room Air 05/15/23 00:00 37.2 C 128 H 20 117/68 99 Room Air 05/14/23 23:25 37.2 C 126 H 20 120/72 99 Room Air 05/14/23 22:00 37.1 C 130 H 14 127/81 Room Air 05/14/23 21:15 37.2 C 121 H 16 112/73 100 Room Air Laboratory Results Laboratory Results - last 48 hr 05/14/23 05/14/23 05/14/23 14:01 14:01 14:01 WBC 12.16 H RBC 3.58 L Hgb 10.7 L Hct 33.1 L MCV 92.5 MCH 29.9 MCHC 32.3 RDW Std Deviation 52.8 H RDW Coeff of Alex 16.0 H Plt Count 364 MPV 9.9 Immature Gran % (Auto) 0.8 Neut % (Auto) 76.3 Lymph % (Auto) 15.7 [place] % (Auto) 5.8 Eos % (Auto) 1.1 Baso % (Auto) 0.3 Neut # (Auto) 9.27 H Lymph # (Auto) 1.91 [place] # (Auto) 0.71 H Eos # (Auto) 0.13 Baso # (Auto) 0.04 Immature Gran # (Auto) 0.10 Polychromasia Tear Drop Cells Echinocytes Sodium 138 Potassium 3.7 Chloride 106 Carbon Dioxide 28 Anion Gap 4 BUN 11 Creatinine 0.59 L Est Cr Clr Drug Dosing 137.2 Est GFR ( Amer) 139.6 Est GFR (Non-Af Amer) 120.4 BUN/Creatinine Ratio 18.6 Glucose 106 H Calcium 8.4 L Total Bilirubin 0.2 AST 13 ALT 14 Alkaline Phosphatase 156 H Total Protein 6.1 Albumin 3.3 L Globulin 2.8 Albumin/Globulin Ratio 1.2 Lipase 57 HCG, Quant 392 SARS-CoV-2, RNA, NAAT Blood Type Antibody Screen Crossmatch 05/14/23 05/14/23 05/14/23 14:01 17:02 19:07 WBC 24.49 H D RBC 2.80 L Hgb 8.5 L Hct 26.1 L MCV 93.2 MCH 30.4 MCHC 32.6 RDW Std Deviation 51.9 H RDW Coeff of Alex 15.9 H Plt Count 364 MPV 10.2 Immature Gran % (Auto) Neut % (Auto) Lymph % (Auto) [place] % (Auto) Eos % (Auto) Baso % (Auto) Neut # (Auto) Lymph # (Auto) [place] # (Auto) Eos # (Auto) Baso # (Auto) Immature Gran # (Auto) Polychromasia Tear Drop Cells Echinocytes Sodium Potassium Chloride Carbon Dioxide Anion Gap BUN Creatinine Est Cr Clr Drug Dosing Est GFR ( Amer) Est GFR (Non-Af Amer) BUN/Creatinine Ratio Glucose Calcium Total Bilirubin AST ALT Alkaline Phosphatase Total Protein Albumin Globulin Albumin/Globulin Ratio Lipase HCG, Quant SARS-CoV-2, RNA, NAAT NEGATIVE Blood Type O Positive Antibody Screen NEGATIVE Crossmatch See Detail 05/15/23 05:55 WBC 18.36 H RBC 2.15 L Hgb 6.7 L* Hct 19.5 L* MCV 90.7 MCH 31.2 MCHC 34.4 RDW Std Deviation 50.7 H RDW Coeff of Alex 15.6 H Plt Count 307 MPV 10.8 Immature Gran % (Auto) 0.7 Neut % (Auto) 88.7 Lymph % (Auto) 7.8 [place] % (Auto) 2.7 Eos % (Auto) 0.0 Baso % (Auto) 0.1 Neut # (Auto) 16.28 H Lymph # (Auto) 1.43 [place] # (Auto) 0.50 Eos # (Auto) 0.00 Baso # (Auto) 0.02 Immature Gran # (Auto) 0.13 Polychromasia 1+ Tear Drop Cells 1+ Echinocytes 1+ Sodium Potassium Chloride Carbon Dioxide Anion Gap BUN Creatinine Est Cr Clr Drug Dosing Est GFR ( Amer) Est GFR (Non-Af Amer) BUN/Creatinine Ratio Glucose Calcium Total Bilirubin AST ALT Alkaline Phosphatase Total Protein Albumin Globulin Albumin/Globulin Ratio Lipase HCG, Quant SARS-CoV-2, RNA, NAAT Blood Type Antibody Screen Crossmatch
[2023-05-15] MEDS ORDERED: IRON SUCROSE 400 MG in SODIUM CHLORIDE 0.9% 250 ML IV ONE (09:30)
== END 2023-05-15 12:30 | disposition home or self-care (01) | DRG 769 ==
LOC: ED 13:39 → OR 17:39 → 4E1 19:18